=== PATIENT | female | born 1975 | race Caucasian/White ===

== ENCOUNTER 2020-02-05 07:57 | Outpatient (CLI) | payer BC, SELFPAY ==
--- NOTE | ~2020-02-05 | MM_ITS ---
EXAMINATION: MM screening radha BI w wilfredo HISTORY: Screening mammogram TECHNIQUE: Craniocaudal and mediolateral oblique 3-D tomosynthesis images were obtained and synthetic 2-D images were generated. CAD analysis was submitted and interpreted. COMPARISON: Comparison to multiple prior studies sequentially, with oldest reviewed study dated 10/28. BREAST PARENCHYMAL COMPOSITION: There are scattered areas of fibroglandular density. FINDINGS: There is a new 5 mm mass in the subareolar location of the right breast, lower outer quadra nt. The left breast is stable without evidence for malignancy. IMPRESSION: 1. New 5 mm right breast mass, lower outer quadrant anteriorly. 2. Additional mammographic views and possible breast ultrasound are recommended. BI-RADS Category 0: Incomplete: Needs additional imaging evaluation. Reviewed, dictated and finalized at location A. IMPRESSION: 1. New 5 mm right breast mass, lower outer quadrant anteriorly. 2. Additional mammographic views and possible breast ultrasound are recommended . BI-RADS Category 0: Incomplete: Needs additional imaging evaluation.
== END 2020-02-05 07:58 | disposition home or self-care (01) ==
LOC: ANHIMG 08:01
PROVIDERS: PCP Internal Medicine; Visit Provider Internal Medicine
DX: Z12.31 Encounter for screening mammogram for malignant neoplasm of breast (principal); R92.8 Other abnormal and inconclusive findings on diagnostic imaging of breast
CPT/HCPCS: 77063; 77067

== ENCOUNTER 2020-04-03 12:27 | Outpatient (CLI) | payer BC, SELFPAY ==
--- NOTE | ~2020-04-03 | MMUS_ITS ---
EXAMINATION: MM diagnostic mammo unilat RT, US breast RT limited HISTORY: New 5 mm mass in subareolar location of right breast reported on 02/05/2020 screening mammogr am TECHNIQUE: Additional 3-D tomosynthesis images of the right breast were performed and synthetic 2-D i mages were generated. CAD analysis was submitted and interpreted. Limited subareolar right breast ult rasound examination was performed. COMPARISON: 02/05/2020 bilateral digital screening mammogram BREAST PARENCHYMAL COMPOSITION: There are scattered areas of fibroglandular density. FINDINGS: Diagnostic right mammogram: There are 2 circumscribed oval densities measuring approximately 4 and 4. 5 mm in the inferolateral subareolar area approximately 2.5 cm deep to the nipple. Targeted subareolar ultrasound: 4.2 x 3.3 x 3.4 mm subareolar sonolucency is noted, compatible with s imple cysts Parallel circumscribed hypoechoic approximately 4 mm lesion is noted in the inferior subareolar area, without internal vascularity or suspicious shadowing. No suspicious mass or shadowing is evident. IMPRESSION: 1. No mammographic evidence of malignancy 2. Routine mammographic screening is recommended. BI-RADS Category 2: Benign finding(s). Reviewed, dictated and finalized at location A. IMPRESSION: 1. No mammographic evidence of malignancy 2. Routine mammographic screening is recommended. BI-RADS Category 2: Benign finding(s).
== END 2020-04-03 12:28 | disposition home or self-care (01) ==
LOC: ANHIMG 12:28
PROVIDERS: PCP Internal Medicine; Visit Provider Internal Medicine
DX: R92.8 Other abnormal and inconclusive findings on diagnostic imaging of breast (principal)
CPT/HCPCS: 76642; 77065

== ENCOUNTER 2020-10-21 13:07 | Emergency (ER) | payer BC, SELFPAY ==
--- NOTE | ~2020-10-21 | XR_ITS ---
EXAMINATION: XR foot LT min 3V EXAM DATE: 10/21/2020 14:01 INDICATION: Initial encounter following injury, with pain of the left foot. TECHNIQUE: Left foot dorsoplantar, lateral and oblique projections obtained and reviewed. There is n o prior study for comparison. FINDINGS: Left metatarsal bones unremarkable. There is small calcaneal posterior and inferior spur s. There are no acute fractures or dislocations identified. There is no subcutaneous gas. The soft tissue is unremarkable. There are no radiopaque foreign bodies. 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 IMPRESSION: No acute osseous findings. Reviewed, dictated and finalized at location A. IMPRESSION: No acute osseous findings.
--- NOTE | ~2020-10-21 | US_ITS ---
EXAMINATION: US venous doppler [facility] EXAM DATE: 10/21/2020 14:40 INDICATION: Left foot pain. TECHNIQUE: Multiple grayscale, color flow and Doppler images of the left lower extremity deep venous system were obtained and reviewed. There is no prior study for comparison. FINDINGS: The left common femoral, femoral and profunda veins demonstrate normal color flow, respirat ory variation, augmentation and compressibility. Compressibility, color flow confirmed within the le ft popliteal, posterior tibial, peroneal, and greater saphenous veins. IMPRESSION: 1. No left lower extremity deep venous thrombosis. Reviewed, dictated and finalized at location A.
[2020-10-21 13:13] VITALS: BP 147/95; PULSE 120; RESP 18; TEMP 36.6; O2SAT 97
--- NOTE | 2020-10-21 14:14 | ED.GENADULT ---
HPI - General Adult General Chief complaint: Extremity Injury, Lower <Juan Jose Kunz PA-C - Last Filed: 10/21/20 14:51> Stated complaint: left foot pain <Juan Jose Kunz PA-C - Last Filed: 10/21/20 14:51> Time Seen by Provider: 10/21/20 13:22 <Juan Jose Kunz PA-C - Last Filed: 10/21/20 14:51> Source: patient <Juan Jose Kunz PA-C - Last Filed: 10/21/20 14:51> Mode of arrival: ambulatory <Juan Jose Kunz PA-C - Last Filed: 10/21/20 14:51> Limitations: no limitations <Juan Jose Kunz PA-C - Last Filed: 10/21/20 14:51> History of Present Illness HPI narrative: Patient is a 45-year-old female who presents with left foot pain patient notes she was sitting in her leg and falling asleep when she went to stand up and felt a pop in the foot at the level of the fifth metatarsal base. Patient denies other injuries or complaints presents in no distress noticed bruising and swelling of the foot presents with crutches <Juan Jose Kunz PA-C - Last Filed: 10/21/20 14:51> Related Data Home medications: Home Medications Medication Instructions Recorded Confirmed lisinopril 10 mg PO 10/21/20 <Juan Jose Kunz PA-C - Last Filed: 10/21/20 14:51> Allergies/adverse reactions: Allergies Allergy/AdvReac Type Severity Reaction Status Date / Time No Known Allergies Allergy Unverified 10/21/20 13:43 <Juan Jose Kunz PA-C - Last Filed: 10/21/20 14:51> Review of Systems Review of Systems: All systems reviewed & are unremarkable except as noted in HPI and below <Juan Jose Kunz PA-C - Last Filed: 10/21/20 14:51> [facility] Past Medical History Medical History: Medical History (Updated 10/21/20 @ 14:50 by Juan Jose Kunz PA-C) DVT (deep venous thrombosis) Pulmonary embolus <Juan Jose Kunz PA-C - Last Filed: 10/21/20 14:51> Social History Social History: Social History (Updated 10/21/20 @ 14:15 by Juan Jose Kunz PA-C) Smoking status: Current every day smoker Additional smoking assessment comments: Patient advised to discontinue smoking given her history of pulmonary embol Gender identity (if verbalized by the patient): Female <Juan Jose Kunz PA-C - Last Filed: 10/21/20 14:51> Exam Narrative: Exam Narrative: GENERAL: Well-appearing, well-nourished, and in no acute distress. HEAD: Normocephalic, atraumatic. EYES: PERRLA and EOMI. ENT: Nares clear, no rhinorrhea or epistaxis. Mucous membranes moist. CHEST: Clear to auscultation. No respiratory distress. No wheezes rales or rhonchi HEART: Regular rate and rhythm. No murmur heard. EXTREMITIES: Normal range of motion. No edema. Bruising swelling and tenderness along the base of the fifth metatarsal remainder of foot and ankle nontender SKIN: Warm, dry, no rash. NEURO: No focal deficits. Alert and oriented x3. Neurovascularly intact PSYCH: Normal mood and affect. <Juan Jose Kunz PA-C - Last Filed: 10/21/20 14:51> Course Course Emergency Course: Patient evaluated the emergency department no fracture no DVT will be discharged home with outpatient follow-up likely strain or ligamentous injury at this time ABCs and vital signs intact and stable <Juan Jose Kunz PA-C - Last Filed: 10/21/20 14:51> Vital Signs Vital signs: Vital Signs Temperature 36.6 C 10/21/20 13:13 Pulse Rate 120 H 10/21/20 13:13 Respiratory Rate 18 10/21/20 13:13 Blood Pressure 147/95 H 10/21/20 13:13 Pulse Oximetry 97 10/21/20 13:13 Temperature 36.6 C 10/21/20 13:13 Pulse Rate 92 10/21/20 15:09 Respiratory Rate 18 10/21/20 15:09 Blood Pressure 132/96 H 10/21/20 15:09 Pulse Oximetry 99 10/21/20 15:09 <Juan Jose Kunz PA-C - Last Filed: 10/21/20 14:51> Vital Signs Temperature 36.6 C 10/21/20 13:13 Pulse Rate 120 H 10/21/20 13:13 Respiratory Rate 18 10/21/20 13:13 Blood Pressure 147/95 H 10/21/20 13:13 Pulse Oximetry 97 10/21/20 1
[2020-10-21 15:09] VITALS: BP 132/96; PULSE 92; RESP 18; O2SAT 99
== END 2020-10-21 15:10 | disposition home or self-care (01) ==
PROVIDERS: Emergency Provider Emergency Medicine; PCP Internal Medicine
DX: S99.922A Unspecified injury of left foot, initial encounter (principal); X58.XXXA Exposure to other specified factors, initial encounter
CPT/HCPCS: 73630; 93971; 99284

== ENCOUNTER 2020-12-06 08:41 | Outpatient (CLI) | payer BC, SELFPAY ==
--- NOTE | ~2020-12-06 | MR_ITS ---
EXAMINATION: MR ankle LT wo con DATE: 12/06/2020 09:33 INDICATION: Left foot and ankle pain post fall 5 weeks prior TECHNIQUE: Magnetic resonance imaging (MRI) of the left ankle was performed without intravenous contr ast. Sequences included sagittal, coronal, and axial proton-density weighted fast spin echo without a nd with fat saturation. COMPARISON: None. FINDINGS: Medial ankle ligaments: Deep and superficial deltoid ligaments as well as the spring ligament are normal. Lateral ankle ligaments: The anterior and posterior inferior tibiofibular ligaments are normal. The anterior talofibular, calc aneofibular and posterior talofibular ligaments are normal. Tendons: Achilles tendon is normal. Longitudinal split tear of the peroneus brevis tendon which forms a C-shap ed configuration draped anteriorly around the normal peroneus longus tendon at the level of the inter tubercular groove. The tibialis anterior and extensor hallucis longus and extensor digitorum longus t endons are normal. The tibialis posterior, flexor digitorum longus and flexor hallucis longus tendons are normal. Plantar fascia: Moderate-sized plantar calcaneal spur at the calcaneal origin of the normal plantar aponeurosis. Bones/other: Marrow edema at the inferior aspect of the head of the talus without evident fracture line which give n the history of pain post trauma would be most consistent with a bone contusion. Bone marrow signal is otherwise normal throughout. Minimal to mild osteoarthritis at the second-fifth tarsal metatarsal joints. Fluid: Physiologic amount of fluid in the joint spaces. No bursitis, tenosynovitis or other abnormal fluid c ollections. IMPRESSION: 1. Likely bone contusion along the inferior aspect of the head of the talus. 2. Longitudinal split tear of the peroneus brevis tendon 3. Minimal to mild osteoarthritis at the second-fifth tarsal metatarsal joints. Reviewed, dictated and finalized at location A.
== END 2020-12-06 08:42 ==
LOC: MICIMG 08:42
PROVIDERS: Visit Provider Orthopaedic Surgery
DX: S96.812A Strain of other specified muscles and tendons at ankle and foot level, left foot, initial encounter (principal); M19.072 Primary osteoarthritis, left ankle and foot
CPT/HCPCS: 73721

== ENCOUNTER 2021-01-26 08:57 | Emergency (ER) | payer BC, SELFPAY ==
--- NOTE | ~2021-01-26 | CT_ITS ---
EXAMINATION: CTA chest PE protocol DATE: 01/26/2021 10:29 INDICATION: Shortness of breath. Recent (01/18/2021) reported diagnosis of deep venous thrombosis of th e left leg. TECHNIQUE: Computed tomography angiography (CTA) of the chest was performed with 100 mL Omnipaque-350 intravenous contrast timed to evaluate the pulmonary arteries. Coronal maximum intensity projection 3D-reconstructions were created by the technologist. Automated exposure control and iterative reconst ruction technique were employed. Exam dose: 794.80 mGy-cm total exam DLP. COMPARISON: None. FINDINGS: There is diagnostic contrast enhancement of the pulmonary arteries and no evidence of pulmo nary embolism. No thoracic aortic aneurysm or dissection. No hilar or mediastinal mass lesion or lymphadenopathy. Heart size is borderline. No pericardial or pleural effusion. Elevated right diaphragm. Mild atelectasis, right lower lobe. No pulmonary consolidation. Normal morphology of the adrenal glands. Included skeletal structures are unremarkable, without significant osteolytic or osteoblastic lesions . IMPRESSION: Elevated right diaphragm and mild atelectasis at right lung base No evidence of pulmonary embolism Reviewed, dictated and finalized at [facility]. Reviewed, dictated and finalized at location [facility].
--- NOTE | 2021-01-26 09:08 | ECG_ITS ---
Measurements Intervals [place] Rate: 66 P: 40 TX: 146 QRS: 33 QRSD: 93 T: 63 QT: 394 QTc: 413 Interpretive Statements SINUS RHYTHM BORDERLINE ST-T WAVE ABNORMALITY- HIGH LATERAL LEADS BASELINE ARTIFACT- I, II, III, AVR, AVL, AVF, V1-V6 BORDERLINE ECG Electronically Signed On 01-26-2021 9:46:48 CDT by Manny Royal D.O.
[2021-01-26 09:09] VITALS: BP 152/95; PULSE 80; RESP 13; TEMP 36.8; O2SAT 98
[2021-01-26 09:46] LABS: Basophils Absolute Auto 0.1 K/mm3 (0.0-0.1); Basophils Percent Auto 0.8 % (0.2-1.2); Eosinophils Absolute Auto 0.3 K/mm3 (0-0.3); Eosinophils Percent Auto 2.6 % (0-4.4); Hematocrit 47.7 % (37.0-47.0); Hemoglobin 15.9 g/dL (12.0-15.0); Immature Granulocyte Absolute 0.08 K/mm3 (0.00-0.031); Immature Granulocyte Percent A 0.7 % (0-0.5); Lymphocytes Absolute Auto 3.33 K/mm3 (0.9-3.2); Lymphocytes Percent Auto 27.4 % (18.3-44.2); Mean Corpuscular HGB Conc 33.3 g/dl (32-36); Mean Corpuscular Hemoglobin 32.3 pg (26-34); Mean Corpuscular Volume 96.8 fl (80-100); Mean Platelet Volume 9.4 fl (7.4-10.4); Monocytes Absolute Auto 0.7 K/mm3 (0.1-0.6); Monocytes Percent Auto 6.1 % (2.6-8.5); Neutrophils Absolute Auto 7.6 K/mm3 (1.3-6.7); Neutrophils Percent Auto 62.4 % (45.5-73.1); Platelet Count Result 277 k/mm3 (150-375); Red Blood Count 4.93 M/mm3 (4.2-5.4); Red Cell Distribution Width 12.8 % (11.5-14.5); White Blood Count 12.2 K/mm3 (4.5-10.0)
[2021-01-26 09:57] LABS: Anion Gap 10 mmol/L (8-16); Blood Urea Nitrogen 16 mg/dL (7-17); Calcium 9.4 mg/dL (8.4-10.2); Carbon Dioxide 22 mmol/L (22-30); Chloride 107 mmol/L (98-107); Estimated CRCL calculation 102 ml/min; Estimated Glomerular Filt Rate > 60; Glucose 86 mg/dL (65-105); Potassium 4.3 mmol/L (3.4-5.0); Sodium 139 mmol/L (137-145)
[2021-01-26 10:04] LABS: INR 1.1; Prothrombin Time 13.9 Seconds (11.1-14.7)
[2021-01-26 10:06] LABS: Partial Thromboplastin Time 40.5 SECONDS (22.3-36.8)
--- NOTE | 2021-01-26 10:49 | ED.SOB ---
HPI - SOB/Dyspnea General Chief Complaint: Shortness of Breath/Dyspnea Stated Complaint: HX DVT FEELS LIKE MOVED TO LUNGS Time Seen by Provider: 01/26/21 09:08 History of Present Illness HPI Narrative: Patient is a 45-year-old female with history of DVT recently diagnosed who is on Eliquis that presents ER with concerns for pulmonary embolism. Patient states she worked this morning and feels more short of breath and has discomfort beneath her right scapula. No hemoptysis or fevers or chills or sweats. No productive cough. Patient has had no syncope. Patient reports she has pain in her calf and left ankle related to previous injury is also location of her blood clot. Related Data Home Medications Medication Instructions Recorded Confirmed lisinopril 10 mg PO 10/21/20 11/26/20 acetaminophen 325 mg capsule 325 mg PO Q6H PRN 11/26/20 11/26/20 apixaban [Eliquis] mg 01/26/21 Allergies Allergy/AdvReac Type Severity Reaction Status Date / Time Sulfa (Sulfonamide Allergy Rash Verified 01/26/21 09:19 Antibiotics) Review of Systems Review of Systems: All systems reviewed & are unremarkable except as noted in HPI and below Constitutional: Constitutional: Denies chills, Denies fever(s) and Denies weakness ENT: Denies nasal congestion and Denies sore throat Cardiovascular: Cardiovascular: Denies chest pain, Denies rapid heart rate and Denies radiating jaw, neck or arm pain Respiratory: Respiratory: Denies cough, Reports dyspnea and Denies wheezing Gastrointestinal: Gastrointestinal: Denies abdominal pain, Denies nausea and Denies vomiting Musculoskeletal: Musculoskeletal: Reports back pain and Denies muscle cramps PMFSH Past Medical History Medical History DVT (deep venous thrombosis) Pulmonary embolus Surgical History Surgical History History of arthroscopy of right knee developed RSD postop - went through pain management Family History Family History Father Diabetes mellitus Sibling Asthma Social History Social History Smoking status: Current every day smoker Additional smoking assessment comments: Patient advised to discontinue smoking given her history of pulmonary embol Gender identity (if verbalized by the patient): Female Exam Narrative: Exam Narrative: GENERAL: Well-appearing, well-nourished, and in no acute distress. HEAD: Normocephalic, atraumatic. CHEST: Clear to auscultation. No respiratory distress. HEART: Regular rate and rhythm. Normal peripheral pulses. ABDOMEN: Soft, nontender, nondistended. Back: No reproducible midline or paraspinal muscular tenderness in the thoracic or lumbar regions. EXTREMITIES: Normal range of motion. No edema. SKIN: Warm, dry, no rash. NEURO: Alert and oriented x3. PSYCH: Normal mood and affect. Course Course Emergency Course: Patient informed of results. Discharge home. Vital Signs Vital signs: Vital Signs Temperature 98.2 F 01/26/21 09:09 Pulse Rate 80 01/26/21 09:09 Respiratory Rate 13 01/26/21 09:09 Blood Pressure 152/95 H 01/26/21 09:09 Pulse Oximetry 98 01/26/21 09:09 Temperature 98.2 F 01/26/21 09:09 Pulse Rate 80 01/26/21 09:09 Respiratory Rate 13 01/26/21 09:09 Blood Pressure 152/95 H 01/26/21 09:09 Pulse Oximetry 98 01/26/21 09:09 MDM - SOB/Dyspnea Lab Data Result diagrams: 01/26/21 09:36 01/26/21 09:36 Labs: Lab Results 01/26/21 01/26/21 01/26/21 Range/Units 09:36 09:36 09:36 WBC 12.2 H (4.5-10.0) K/mm3 RBC 4.93 (4.2-5.4) M/mm3 Hgb 15.9 H (12.0-15.0) g/dL Hct 47.7 H (37.0-47.0) % MCV 96.8 (80-100) fl MCH 32.3 (26-34) pg MCHC 33.3 (32-36) g/dl RDW 12.8 (11.5-14.5) % Plt Count 277 (150-375) k/mm3
== END 2021-01-26 11:17 | disposition home or self-care (01) ==
PROVIDERS: Emergency Provider Emergency Medicine; PCP Internal Medicine
DX: I82.402 Acute embolism and thrombosis of unspecified deep veins of left lower extremity (principal); F17.200 Nicotine dependence, unspecified, uncomplicated; Z79.01 Long term (current) use of anticoagulants; Z86.718 Personal history of other venous thrombosis and embolism; Z86.711 Personal history of pulmonary embolism
CPT/HCPCS: 36415; 71275; 80048; 85025; 85610; 85730; 93005; 99284; Q9967

== ENCOUNTER 2021-01-28 11:16 | Emergency (ER) | payer BC, SELFPAY ==
[2021-01-28] VITALS (26 sets, daily range): BP systolic 130–169; BP diastolic 80–107; PULSE 63–88; RESP 13–28; TEMP 36.9; O2SAT 94–100
--- NOTE | ~2021-01-28 | CT_ITS ---
EXAMINATION: CTA chest PE protocol DATE: 01/28/2021 12:26 INDICATION: (Midsternal chest pain, dyspnea. Shortness of breath. TECHNIQUE: Computed tomography angiography (CTA) of the chest was performed with 100 mL Omnipaque-350 intravenous contrast timed to evaluate the pulmonary arteries. Coronal maximum intensity projection 3D-reconstructions were created by the technologist. Automated exposure control and iterative reconst ruction technique were employed. Exam dose: 403.96 mGy-cm total exam DLP. COMPARISON: 01/26/2021 CT pulmonary scan FINDINGS: There is moderate opacification the pulmonary arteries, without evidence of pulmonary embol ism. No thoracic aortic aneurysm or dissection. Normal heart size. No pericardial or pleural the effusion. Elevated right diaphragm. Mild atelectasis primarily in the right lower lobe. The lungs are otherwise clear. Small sliding hiatal hernia. No suspicious osteolytic or osteoblastic lesions. IMPRESSION: No evidence of pulmonary embolism Reviewed, dictated and finalized at [facility]. Reviewed, dictated and finalized at location B.
--- NOTE | 2021-01-28 11:27 | ECG_ITS ---
Measurements Intervals [place] Rate: 64 P: 34 TN: 171 QRS: 33 QRSD: 92 T: 67 QT: 394 QTc: 407 Interpretive Statements SINUS RHYTHM MINIMAL Q WAVES- INFERIOR LEADS BORDERLINE ST-T WAVE ABNORMALITY- HIGH LATERAL LEADS BASELINE ARTIFACT- I, III BORDERLINE ECG Electronically Signed On 01-28-2021 11:30:07 CDT by Manny Royal D.O.
--- NOTE | 2021-01-28 11:33 | ED.CHESTPAIN ---
HPI - Chest Pain General Chief Complaint: Chest Pain Stated Complaint: CP Source: RN notes reviewed History of Present Illness HPI narrative: Patient presents to emergency department from home for left-sided chest pain. Patient states the pain began this morning at 5:30 AM is located in the left lower chest and midsternal chest described as a pressure in nature it is worse with movement patient states that she has mild shortness of breath with the pain she denies any fevers or chills abdominal pain nausea vomiting or any other symptoms. Patient states she has a history of a DVT and is currently on Eliquis Related Data Home Medications Medication Instructions Recorded Confirmed lisinopril 10 mg PO 10/21/20 11/26/20 acetaminophen 325 mg capsule 325 mg PO Q6H PRN 11/26/20 11/26/20 apixaban [Eliquis] mg 01/26/21 Allergies Allergy/AdvReac Type Severity Reaction Status Date / Time Sulfa (Sulfonamide Allergy Rash Verified 01/28/21 11:30 Antibiotics) Review of Systems Review of Systems: Narrative: Gen.: Denies fevers or chills ENT: Denies congestion Respiratory: Denies shortness of breath or cough CV: See HPI GI: Denies abdominal pain nausea, emesis or diarrhea Musculoskeletal: Denies back pain or muscle pain Neuro: Denies numbness, tingling, weakness or focal weakness Skin: Denies rash Except as documented, all other systems reviewed and negative [facility] Past Medical History Medical History DVT (deep venous thrombosis) Pulmonary embolus Surgical History Surgical History History of arthroscopy of right knee developed RSD postop - went through pain management Family History Family History Father Diabetes mellitus Sibling Asthma Social History Social History Smoking status: Current every day smoker Additional smoking assessment comments: Patient advised to discontinue smoking given her history of pulmonary embol Gender identity (if verbalized by the patient): Female Exam Narrative: Exam Narrative: APPEARANCE: No acute distress, nontoxic, resting in bed EYES: EOMI HEENT: Normocephalic, atraumatic, OMM RESPIRATORY: No respiratory distress Clear to auscultation bilaterally with no rhonchi wheezing or rales. CARDIOVASCULAR: Regular rate and rhythm without murmurs rubs or gallops. Chest: Tender palpation over the lower left sternum with point tenderness present pain increased with fly motion ABDOMINAL: Soft, nontender, nondistended, no rebound or guarding MUSCULOSKELETAl: Moves all extremities. No clubbing, cyanosis or edema. NEURO: Awake and alert. Following commands, speech normal, no focal deficits SKIN:: Warm, dry. No rashes lesions or abrasions PSYCHIATRIC: Normal affect/mood, Course Course Emergency Course: Discussed with patient results of workup and diagnosis. Discussed need for follow-up with primary care, proper use of medication, and reasons to return to the emergency department. Patient understands and agrees to current treatment plan Vital Signs Vital signs: Vital Signs Temperature 98.4 F 01/28/21 11:13 Pulse Rate 74 01/28/21 11:13 Respiratory Rate 18 01/28/21 11:13 Blood Pressure 161/107 H 01/28/21 11:13 Pulse Oximetry 95 01/28/21 11:13 Temperature 98.4 F 01/28/21 11:13 Pulse Rate 83 01/28/21 11:29 Respiratory Rate 18 01/28/21 11:13 Blood Pressure 161/107 H 01/28/21 11:13 Pulse Oximetry 99 01/28/21 12:03 MDM - Chest Pain MDM Narrative Medical decision making narrative: Patient's EKGs and labs are without significant high risk changes. Cardiac risk factors reviewed. Patient is felt likely low risk for ACS and reasonable for further risk stratification testing as an outpatient. CTA shows no signs of pulmonary embolism aneurysm or pne
[2021-01-28 11:40] LABS: Basophils Absolute Auto 0.1 K/mm3 (0.0-0.1); Basophils Percent Auto 0.6 % (0.2-1.2); Eosinophils Absolute Auto 0.5 K/mm3 (0-0.3); Eosinophils Percent Auto 3.7 % (0-4.4); Hematocrit 48.3 % (37.0-47.0); Hemoglobin 16.1 g/dL (12.0-15.0); Immature Granulocyte Absolute 0.08 K/mm3 (0.00-0.031); Immature Granulocyte Percent A 0.6 % (0-0.5); Lymphocytes Absolute Auto 3.62 K/mm3 (0.9-3.2); Lymphocytes Percent Auto 28.3 % (18.3-44.2); Mean Corpuscular HGB Conc 33.3 g/dl (32-36); Mean Corpuscular Hemoglobin 32.4 pg (26-34); Mean Corpuscular Volume 97.2 fl (80-100); Mean Platelet Volume 9.4 fl (7.4-10.4); Monocytes Absolute Auto 0.8 K/mm3 (0.1-0.6); Monocytes Percent Auto 6.2 % (2.6-8.5); Neutrophils Absolute Auto 7.8 K/mm3 (1.3-6.7); Neutrophils Percent Auto 60.6 % (45.5-73.1); Platelet Count Result 294 k/mm3 (150-375); Red Blood Count 4.97 M/mm3 (4.2-5.4); Red Cell Distribution Width 12.8 % (11.5-14.5); White Blood Count 12.8 K/mm3 (4.5-10.0)
[2021-01-28 11:49] LABS: Anion Gap 12 mmol/L (8-16); Blood Urea Nitrogen 18 mg/dL (7-17); Calcium 9.9 mg/dL (8.4-10.2); Carbon Dioxide 22 mmol/L (22-30); Chloride 102 mmol/L (98-107); Estimated CRCL calculation 129 ml/min; Estimated Glomerular Filt Rate > 60; Glucose 93 mg/dL (65-105); Potassium 4.6 mmol/L (3.4-5.0); Sodium 136 mmol/L (137-145)
[2021-01-28 11:53] LABS: Prothrombin Time 13.4 Seconds (11.1-14.7)
[2021-01-28 11:55] LABS: Partial Thromboplastin Time 31.8 SECONDS (22.3-36.8)
[2021-01-28 12:02] LABS: Troponin I < 0.012 ng/mL (0.000-0.034)
[2021-01-28 14:36] LABS: Troponin I < 0.012 ng/mL (0.000-0.034)
== END 2021-01-28 16:13 | disposition home or self-care (01) ==
PROVIDERS: Emergency Provider Emergency Medicine; PCP Internal Medicine
DX: R07.89 Other chest pain (principal); Z86.718 Personal history of other venous thrombosis and embolism; Z86.711 Personal history of pulmonary embolism; F17.200 Nicotine dependence, unspecified, uncomplicated; R94.31 Abnormal electrocardiogram [ECG] [EKG]
CPT/HCPCS: 36415; 71275; 80048; 84484; 85025; 85610; 85730; 93005; 99284; Q9967

== ENCOUNTER 2021-02-02 10:15 | Outpatient (RCR) | payer BC, SELFPAY ==
--- NOTE | 2020-11-12 09:07 | PTOPEVAL ---
PHYSICAL THERAPY EVALUATION AND PLAN OF CARE 11-12-20 Thank you for referring Mery Patel to [facility], for the diagnosis of L ankle injury.? She is scheduled to be seen for therapy? 2 x/week for 4 weeks. Please review, sign, date and return this plan of care CATHY. I agree with and certify that the following plan of care is medically necessary. Referring Physician Date Attending Provider: Scooby Black MD *PT Outpatient Evaluation Document 11/12/20 08:00 CYNDIE (Rec: 11/12/20 09:07 CYNDIE [id number]) Cardiovascular History Hx Hypertension Yes: meds Hx Other Cardiac Disorders Yes: cardiac ablation Respiratory History Hx Pulmonary Embolism Yes: > 10 yr ago DVT R LE & lung; no longer on blood thinner Musculoskeletal History Hx Orthopedic Surgery Yes: R and L knee arthroscopy; R knee manipulation Reproductive History Hx Hysterectomy Yes Evaluation Information Problem Diagnosis L ankle injury Onset October 22, 2020 Subjective Information was sitting, L leg fell asleep Query Text:As Reported By Patient/ and numb, went to stand and Family twisted ankle, it turned inward and heard a pop; wearing walking shoe and using crutches PRN- 1 or 2 crutches ; Diagnostic Tests X-Rays For This Problem Yes: negative Prior Level of Function Activity Level (Last 3 Months) 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;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,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 Activity of Daily Living Ability Independent Indoor/Home Mobility Independent Community Mobility Needs Some Help Functional Cognition (Planning, Shopping Independent , Taking Medications) Cooking Yes Cleaning Yes Laundry Yes Shopping Yes Driving Yes Home Setting Home Type House,Multiple Levels Living Situation With Spouse Mobility Assistive Devices (Used Last 3 None,Crutches Months) Orthotic/Prosthetic Devices Left Lower Extremity Orthosis Comments Additional Prior Level of Function currently working from home to Comments decrease walking; job- office, walking, phone tasks; can avoid stairs, laundry in basement- has been doing laundry; use crutches
--- NOTE | 2020-12-09 08:42 | PTOPEVAL ---
Addendum entered by Kaylynn Puentes, PT 12/17/20 15:45: New orders for PT from Fela Brito NP. Pt reports she will not be seeing Dr Black anymore. Continue with PT under these orders; Updated plan of care, to continue PT 2x/week for 5 weeks. Fela Brito NP Date Original Note: PHYSICAL THERAPY RE-EVALUATION REPORT 12-09-20 Refer to the clinical summary below, for comparison of today's reevaluation to the initial evaluation. Mery continues to have pain in ankle, with numbness and tingling over lateral lower leg. And continues to use the crutches due to not being able to tolerate WB on her L LE. Amanda Moran has a follow up appointment; if PT is to continue, please issue her a new script. Thank you for referring Mery Patel to [facility].? Please review, sign, date and return this plan of care CATHY. I agree with and certify that the following plan of care is medically necessary. 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; going to see tomorrow and will get the results from her MRI; Pain Assessment Timing of Pain Assessment Timing of Pain Assessment Assessment Pain Scale Pain Scale Used Numeric (1 - 10) Self Report Pain Assessment Left Ankle(s) Reported Pain Level 6 Pain Description Numbness,Sharp,Tingling Radicular Pain Location lateral ankle and lateral lower leg Pain Frequency Chronic,Continuous Lowest Pain Intensity 4 Greatest Pain Intensity 8 Pain Aggravating Factors Walking,Weight Bearing/ Standing Pain Behaviors Grimacing,Guarding Pain Score Pain Score 6: Self Report Additional Pain Score Comments reported sleeping with L LE elevated and awaken 2-3 x/ night; standing/walking tolerance 30 min; using crutches all time; wearing cast shoe; pain is different- going up side of leg now, not j
--- NOTE | 2020-12-17 15:44 | PCPTNOTE ---
new orders received: Fela Brito NP: pt reports she is no longer seeing Dr Black and will be following with Daryl ENCARNACION; updated goals and plan of care sent to Fela Brito NP;
--- NOTE | 2020-12-26 09:52 | PCPTNOTE ---
Patient called & cancelled scheduled appointment this date due to , putting her L foot/ankle in cast.
--- NOTE | 2020-12-26 13:45 | PCPTNOTE ---
pt called and canceled her appointments for the next 2 weeks; she went to and they put a cast over her ankle and lower leg. She returns to January 08 for cast to be removed. She has appt after that to continue PT. She reports pain increased in her ankle from the cast and position of her foot. And is using crutches for walking. Discussed with her continue to elevate LE, wiggle toes and monitor pain. If too uncomfortable, to contact
--- NOTE | 2021-01-15 11:41 | PCPTNOTE ---
pt with a new script from ortho dr, to continue PT treatment, WBAT on L LE and wean off boot. Discussed pt with SENIOR GAME ADVISOR, to continue treatment plan as previous,with reevaluation scheduled for next week.
--- NOTE | 2021-01-20 08:43 | PTOPEVAL ---
PHYSICAL THERAPY REEVALUATION AND UPDATED PLAN OF CARE 01-20-21 Refer to the clinical summary below, for her status today, compared to the last reeval. Continue PT treatments 2x/wk for 3 weeks. Thank you for referring Mery Patel to [facility].? Please review, sign, date and return this updated plan of care [facility]. I agree with and certify that the following plan of care is medically necessary. Referring Physician Date Attending Provider: Fela Clements NP Document 01/20/21 08:00 CYNDIE (Rec: 01/20/21 08:43 CYNDIE [id number]) Assessment Status Re-evaluation Subjective Information Mery reports: had more pain Query Text:As Reported By Patient/ over the weekend- in calf and Family leg, to behind knee; to call dr today about leg- ? blood clot history; leg is warm today and is usually cold; to see neurologist Patricia, to check for back cause of leg pain; Pain Assessment Timing of Pain Assessment Timing of Pain Assessment Assessment Pain Scale Pain Scale Used Numeric (1 - 10) Self Report Pain Assessment Left Ankle(s) Reported Pain Level 7 Radicular Pain Location stiff, tight; lateral malleoli ; numb and tingle in leg- ? from back Pain Frequency Chronic,Continuous Other Pain Description lateral ankle pain 5/10; calf, to below knee& posterior heel is 6-9/10; Lowest Pain Intensity 6 Greatest Pain Intensity 9 Pain Aggravating Factors Exercise/Activity Other Pain Aggravating Factors report tolerance 10-15 min, sleep awaken 4-5 x/night due to calf pain Pain Behaviors Anxious,Grimacing,Guarding Additional Pain Comments if sit too long- L leg goes numb; Pain Score Pain Score 7: Self Report Additional Pain Score Comments was doing better up until about 5 days ago, gradual increase in pain of calf, really worse over past 2 days; wear walking boot when walking in community; in home , try to remove some and walk short distances in home; Interventions Used Interventions Used By Clinicians Exercise Pain Relief Interventions Used By Elevation,Inactivity/Rest, Patient Medication,Sitting Other Alleviating Interventions ibuprofen and tylenol; sit/
--- NOTE | 2021-01-23 16:26 | PCPTNOTE ---
pt called and canceled therapy appt for next week due to having blood clots in leg and said to HOLD PT.
--- NOTE | 2021-02-03 15:11 | PCPTNOTE ---
This treatment is being continued on visit number [id number]. Please see documentation on both accounts to view progress. Completed interventions, outcomes, and problems have been marked as Inactive to facilitate the copying of the Care plan routine for recurring accounts.
== END 2021-02-03 15:02 | disposition home or self-care (01) ==
LOC: ANHPT 10:15
PROVIDERS: PCP Internal Medicine
DX: S99.912D Unspecified injury of left ankle, subsequent encounter (principal)
CPT/HCPCS: 97014; 97022; 97035; 97110; 97112; 97140; 97161; G0283

== ENCOUNTER 2021-02-17 14:00 | Outpatient (RCR) | payer BC, SELFPAY ==
--- NOTE | 2021-02-03 15:14 | PCPTNOTE ---
This treatment is being continued from visit number [id number] Please see documentation on both accounts to view progress. Completed interventions, outcomes, and problems have been marked as Inactive to facilitate the copying of the Care plan routine for recurring accounts.
--- NOTE | 2021-02-11 08:55 | PTOPEVAL ---
PHYSICAL THERAPY REEVALUATION AND UPDATED PLAN OF CARE 02-11-21 Refer to the clinical summary below for her status today, compared to the last reevaluation. The goals were partially achieved. Continue PT treatment 2x/wk for 5 weeks. Thank you for referring Mery Patel to [facility].? Please review, sign, date and return this updated plan of care [facility]. I agree with and certify that the following plan of care is medically necessary. Referring Physician Date Attending Provider: Fela Clements NP Document 02/11/21 08:00 CYNDIE (Rec: 02/11/21 08:55 CYNDIE [id number]) Assessment Status Re-evaluation Subjective Information Mery reports: walking Query Text:As Reported By Patient/ without anything short Family distances, using one crutch for longer walking; not using any type of ankle support or brace; doing exercises; is getting better, but still giving me problems; is taking way longer than I thought it would take; still cannot be up on my feet and have to sit/ rest; cannot take usual walks for exercises, cannot play with grandkids like I normally did; still working from home due to ankle, instead of going to the office; to see dr tomorrow for follow up appointment; wants to continue therapy. Pain Assessment Timing of Pain Assessment Timing of Pain Assessment Assessment Pain Scale Pain Scale Used Numeric (1 - 10) Self Report Pain Assessment Left Ankle(s) Reported Pain Level 3 Pain Description Pressure,Tightness Pain Frequency Chronic,Continuous Other Pain Description pinching lateral ankle,tight; pain from bottom of foot across arch foot-elec Lowest Pain Intensity 2 Greatest Pain Intensity 4 Pain Aggravating Factors Walking,Weight Bearing/ Standing Other Pain Aggravating Factors report walk/stand tolerance 30 -40 min; with sleeping awaken 1-2 x/week Pain Behaviors Anxious,Grimacing,Guarding Pain Score Pain Score 3: Self Report Additional Pain Score Comments on blood thinner due to blood clots; leukotape strip start lateral
--- NOTE | 2021-02-19 08:32 | PCPTNOTE ---
Patient called & cancelled scheduled appointment, stating she needed to cancel. Will continue per POC.
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
--- NOTE | 2021-02-26 13:52 | PCPTNOTE ---
pt called and canceled due to having to work, unable to leave work to come to therapy today.
--- NOTE | 2021-03-03 15:05 | PCPTNOTE ---
pt called and canceled all her PT appt due to not being able to get off work, due to short staffed.
--- NOTE | 2021-03-19 15:47 | PCPTNOTE ---
PHYSICAL THERAPY DISCHARGE 03-19-21 Attending Provider: LEÓN Baker Patient:Mery Patel Date of :1975 Mrs. Patel has not returned for any further treatments since 02/17/2021; she called and canceled therapy due to not being able to get away from work to come in for appointments. I called her today and she reports she is doing OK, continuing to do her exercises and having only slight pain in ankle. Mery will be discharged at this time. The goals were not addressed. Thank you for referring Mrs. Patel to [facility]. Please review, sign, date and return this discharge summary CATHY. I have been updated about the patient's current status and I agree with discharge from the above service at this time. Referring Physician Date
== END 2021-04-20 08:49 | disposition home or self-care (01) ==
LOC: ANHPT 14:00
PROVIDERS: PCP Internal Medicine
DX: S99.912D Unspecified injury of left ankle, subsequent encounter (principal); M76.71 Peroneal tendinitis, right leg
CPT/HCPCS: 97035; 97110; 97140

== ENCOUNTER 2021-04-17 16:08 | Inpatient (IN) | payer BC, SELFPAY ==
--- NOTE | ~2021-04-17 | US_ITS ---
EXAMINATION: US venous doppler LE DATE: 04/21/2021 16:33 INDICATION: Right lower limb pain TECHNIQUE: Grayscale ultrasound images without and with compression and Doppler ultrasound images of the right lower extremity veins were obtained. COMPARISON: None. FINDINGS: The visualized portions of right common femoral vein, profunda (deep) femoral vein, femoral vein, pop liteal vein, peroneal trunk, posterior tibial veins, peroneal veins, gastrocnemius vein and greater s aphenous vein outflow are patent. IMPRESSION: 1. No deep venous thrombosis in the right lower limb. Reviewed, dictated and finalized at location B.
[2021-04-17 16:39] VITALS: BP 143/97; PULSE 90; RESP 14; TEMP 37.1; O2SAT 99
[2021-04-17 19:18] VITALS: BP 151/99; PULSE 74; RESP 17; O2SAT 98
--- NOTE | 2021-04-17 19:50 | ED.GENADULT ---
HPI - General Adult General Chief complaint: Extremity Problem,Nontraumatic Stated complaint: +DVT L LEG ON ELIQUIS Time Seen by Provider: 04/17/21 19:05 History of Present Illness HPI narrative: Patient is a 46-year-old female who presents ER with DVT. Patient diagnosed with DVT several months ago. She has been taking Eliquis outpatient. Developed new onset left calf pain yesterday. An outpatient ultrasound was arranged for today [place] which showed development of new DVT in the left calf. Patient was without chest pain or shortness of breath. She reports strict compliance with her Eliquis 5 mg twice daily. Patient has previous history of DVT and PE in the past. No new swelling to her leg. No new trauma. No prolonged immobilization. She believes she has been worked up for clotting disorder in the past and that it was unremarkable. Related Data Home Medications Medication Instructions Recorded Confirmed lisinopril 10 mg PO HS 10/21/20 04/18/21 Allergies Allergy/AdvReac Type Severity Reaction Status Date / Time Sulfa (Sulfonamide Allergy Rash Verified 04/18/21 00:08 Antibiotics) Review of Systems Review of Systems: All systems reviewed & are unremarkable except as noted in HPI and below Constitutional: Constitutional: Denies chills, Denies fever(s) and Denies weakness ENT: Denies nasal congestion and Denies sore throat Cardiovascular: Cardiovascular: Denies chest pain, Denies rapid heart rate and Denies radiating jaw, neck or arm pain Respiratory: Respiratory: Denies cough and Denies dyspnea Musculoskeletal: Musculoskeletal: Denies arthralgias and Reports muscle cramps (calf pain left) [facility] Past Medical History Medical History (Updated 04/18/21 @ 07:01 by Nash Cobian MD) DVT (deep venous thrombosis) Pulmonary embolus Surgical History Surgical History History of arthroscopy of right knee developed RSD postop - went through pain management Family History Family History Father Diabetes mellitus Sibling Asthma Social History Social History Smoking status: Current every day smoker Additional smoking assessment comments: Patient advised to discontinue smoking given her history of pulmonary embol Alcohol intake: former Substance use: never Gender identity (if verbalized by the patient): Female Spiritual care concerns: No Exam Narrative: GENERAL: Well-appearing, well-nourished, and in no acute distress. HEAD: Normocephalic, atraumatic. EYES: PERRL and EOMI. CHEST: Clear to auscultation. No respiratory distress. HEART: Regular rate and rhythm. Normal peripheral pulses. ABDOMEN: Soft, nontender, nondistended. EXTREMITIES: Normal range of motion. No edema. +Homans sign left calf. SKIN: Warm, dry, no rash. NEURO: Alert and oriented x3. PSYCH: Normal mood and affect. Course Course Emergency Course: Patient informed of the results. Admit for observation and facial be started on Lovenox and will be bridged to Coumadin. Vital Signs Vital signs: Vital Signs Temperature 98.8 F 04/17/21 16:39 Pulse Rate 90 04/17/21 16:39 Respiratory Rate 14 04/17/21 16:39 Blood Pressure 143/97 H 04/17/21 16:39 Pulse Oximetry 99 04/17/21 16:39 Temperature 98.3 F 04/18/21 06:00 Pulse Rate 65 04/18/21 06:00 Respiratory Rate 20 04/18/21 06:00 Blood Pressure 117/64 04/18/21 06:00 Pulse Oximetry 99 04/18/21 06:00 Medical Decision Making Vital Signs Vital Signs: Vital Signs Temperature 98.8 F 04/17/21 16:39 Pulse Rate 90 04/17/21 16:39 Respiratory Rate 14 04/17/21 16:39 Blood Pressure 143/97 H 04/17/21 16:39 Pulse Oximetry 99 04/17/21 16:39 Temperature 98.3 F 04/18/21 06:00 Pulse Rate 65 04/18/21 06:00 Respiratory Rate 20 04/18/21 06:00 Blood Pressu
[2021-04-17 20:44] LABS: Basophils Absolute Auto 0.1 K/mm3 (0.0-0.1); Basophils Percent Auto 0.9 % (0.2-1.2); Eosinophils Absolute Auto 0.3 K/mm3 (0-0.3); Eosinophils Percent Auto 3.4 % (0-4.4); Hematocrit 44.5 % (37.0-47.0); Hemoglobin 14.9 g/dL (12.0-15.0); Immature Granulocyte Absolute 0.05 K/mm3 (0.00-0.031); Immature Granulocyte Percent A 0.5 % (0-0.5); Lymphocytes Percent Auto 47.4 % (18.3-44.2); Mean Corpuscular HGB Conc 33.5 g/dl (32-36); Mean Corpuscular Hemoglobin 32.8 pg (26-34); Mean Platelet Volume 9.3 fl (7.4-10.4); Monocytes Absolute Auto 0.6 K/mm3 (0.1-0.6); Monocytes Percent Auto 6.2 % (2.6-8.5); Neutrophils Absolute Auto 4.2 K/mm3 (1.3-6.7); Neutrophils Percent Auto 41.6 % (45.5-73.1); Platelet Count Result 233 k/mm3 (150-375); Red Blood Count 4.54 M/mm3 (4.2-5.4); Red Cell Distribution Width 12.6 % (11.5-14.5); White Blood Count 10.1 K/mm3 (4.5-10.0)
[2021-04-17 20:53] LABS: Anion Gap 12 mmol/L (8-16); Blood Urea Nitrogen 18 mg/dL (7-17); Carbon Dioxide 21 mmol/L (22-30); Chloride 106 mmol/L (98-107); Estimated CRCL calculation 116 ml/min; Estimated Glomerular Filt Rate > 60; Glucose 104 mg/dL (65-110); Sodium 139 mmol/L (137-145)
[2021-04-17 20:54] LABS: Prothrombin Time 12.7 Seconds (11.1-14.7)
[2021-04-17 20:55] LABS: Partial Thromboplastin Time 28.9 SECONDS (22.3-36.8)
[2021-04-17 21:21] VITALS: BP 134/94; PULSE 65; RESP 18; O2SAT 98
[2021-04-17 22:36] VITALS: BP 134/89; PULSE 76; RESP 15; O2SAT 100
[2021-04-17] MEDS: HYDROcodone/acetaminophen (*CRX) 5-325 MG TABLET 1 TAB PO (22:45)
[2021-04-17] MEDS: ENOXAPARIN 120 MG/0.8 ML SYRINGE 110 MG SUB-Q (22:45)
--- NOTE | 2021-04-17 23:30 | PM.IMHP ---
H&P: HPI History of Present Illness Date/Time: 04/17/21 23:30 Chief Complaint: Left calf swelling Narrative: This is a 46-year-old female with past medical history significant for pulmonary embolism, DVT, tobacco dependence. Patient is on chronic anticoagulation with Eliquis she presented today to the emergency room due to left calf pain and swelling. Patient has been in her usual state of health up until 2 days ago when she fares 1st notice swelling and tenderness of her left calf decided to go see her primary care physician who in turn sent her to the emergency preliminary workup has been significant for acute deep vein thrombosis of the left lower extremity. Patient denies any chest pain ,shortness of breath, cough, sputum production ,fevers, rigors ,chills, hemoptysis ,syncope or near-syncope, lightheadedness, dizziness, PND or orthopnea, palpitations, nausea, vomiting abdominal pain or diarrhea. States that she takes her Eliquis daily. Decision have been made to place the patient in observation for further management treatment and evaluation. Review of Systems Review of Systems: Left calf swelling and tenderness Constitutional: Constitutional: Denies chills, Denies fatigue, Denies fever(s), Denies lethargy, Denies malaise and Denies night sweats Eyes: Eyes: Denies change in vision ENT: Denies dysphagia, Denies vertigo, Denies dizziness, Denies nasal congestion, Denies nasal discharge, Denies nasal obstruction and Denies odynophagia Cardiovascular: Cardiovascular: Denies chest pain, Denies irregular heart rhythm, Denies claudication, Denies lightheadedness, Denies radiating jaw, neck or arm pain, Denies palpitations, Denies dyspnea on exertion and Denies orthopnea Respiratory: Respiratory: Denies change in phlegm color, Denies cough, Denies excessive phlegm production, Denies pain on inspiration and Denies dyspnea Gastrointestinal: Gastrointestinal: Denies abdominal pain, Denies dyspepsia, Denies heartburn, Denies diarrhea and Denies vomiting Genitourinary: Genitourinary: Reports no additional female genitourinary complaints Musculoskeletal: Musculoskeletal: Reports arthralgias and Reports joint swelling Comments: Left lower extremity calf swelling and tenderness Integumentary/Breasts: Skin/Breast: Reports system reviewed and no additional complaints, except as docu Neurologic: Reports system reviewed and no additional complaints, except as documented Psychiatric: Psychiatric: Reports no additional psychiatric complaints Endocrine: Endocrine: Reports no additional endocrine complaints Hematologic/Lymphatic: Hematologic/Lymphatic: Reports no additional hematologic/lymphatic complaints Allergic/Immunologic: Allergic/Immunologic: Reports no additional allergic/immunologic complaints [facility] Past Medical History Medical History (Updated 04/18/21 @ 03:44 by Cindi Espino MD) DVT (deep venous thrombosis) Pulmonary embolus Surgical History Surgical History History of arthroscopy of right knee developed RSD postop - went through pain management Family History Family History Father Diabetes mellitus Sibling Asthma Social History Social History Smoking status: Current every day smoker Additional smoking assessment comments: Patient advised to discontinue smoking given her history of pulmonary embol Alcohol intake: former Substance use: never Gender identity (if verbalized by the patient): Female Spiritual care concerns: No Meds Home Medications and Allergies Home Medications Medication Instructions Recorded Confirmed Type lisinopril 10 mg PO HS 10/21/20 04/18/21 History Allergies Allergy/AdvReac Type Severity Reaction Status Date / Time Sulfa (Sulfonamide Allergy Rash Verified 04/18/21 00:08 Antibiotics) Vital Signs
[2021-04-17 23:56] VITALS: BP 132/89; PULSE 80; RESP 14; O2SAT 100
--- NOTE | 2021-04-18 | ECHO_ITS ---
Patient Info Name: Mery Patel Age: 46 years : 1975 Gender: Female Ht: 71 in Wt: 247 lbs BSA: 2.41 m2 BP: 117 / 64 mmHg Technical Quality: Fair Exam Date: 04/18/2021 7:43 AM Exam Location: [facility] Pulmonary Patient Status: Outpatient Admit Date: 04/17/2021 Staff Ordering Physician: Cindi Espino MD [employer] Operator: Qiana Catalan RDCS Attending Provider: Cindi Espino MD Referring Physician: Srinivas BOGGS; Exam Type: CA echo dop color flow w con Study Info Indications I80.299 - Phlebitis and thrombophlebitis of other deep vessels of unspecified lower extremity Complete two-dimensional, color flow and Doppler transthoracic echocardiogram is performed with contrast to opacify the left ventricle and to improve the deliniation of the left ventricle endocardial borders. Contrast/Agitated Saline Contrast/Ag. Saline: Definity Amount: 4.00 ml Summary 1. Left ventricular chamber dimension is normal. 2. Definity contrast administered improved wall motion interpretation. 3. Left ventricular systolic function is normal, estimated at 65-70%. 4. There is mildly increased left ventricular wall thickness. 5. The left ventricular diastolic function is normal. 6. E/e' 8 is minimally elevated. Left Ventricle E/e' 8 is minimally elevated. Definity contrast administered improved wall motion interpretation. Left ventricular chamber dimension is normal. Left ventricular systolic function is normal, estimated at 65-70%. There is mildly increased left ventricular wall thickness. The left ventricular diastolic function is normal. Right Ventricle Right ventricular systolic function is normal and with normal TAPSE 2.0 cm. Right ventricular chamber dimension is normal. Left Atria Left atrial chamber dimension is normal. Right Atria Right atrial chamber dimension is normal. Aortic Valve The aortic valve is trileaflet. There is no aortic valve stenosis. There is no aortic valve regurgitation. Pulmonic Valve There is no pulmonic regurgitation. Mitral Valve There is no mitral valve stenosis. There is no mitral valve regurgitation. Tricuspid Valve There is no tricuspid valve regurgitation. Pericardium/Pleural There is no pericardial effusion. Inferior Vena Cava Normal inferior vena cava with >50% collapse upon inspiration consistent with normal right atrial pressure, 5 mmHg. Aorta The aortic root size at the sinus of Valsalva is normal. Left Ventricular Outflow Tract Name Value Normal LVOT 2D LVOT Diameter 2.11 cm LVOT Doppler LVOT Peak Gradient 4 mmHg LVOT Mean Gradient 2 mmHg LVOT VTI 23.11 cm LVOT VTI/AV VTI Ratio 0.88 LVOT Stroke Volume 80.65 ml Pulmonic Valve Name Value Normal PV Doppler
[2021-04-18 00:30] VITALS: BP 113/60; PULSE 55; RESP 20; TEMP 37.1; O2SAT 100
[2021-04-18 00:44] VITALS: BMI 34.5
--- NOTE | 2021-04-18 00:45 | ADMGEN ---
This patient, Mery Patel, was admitted to 3 Med Surg Room 329-01 ay 0030. Patient/family oriented to hospital policies and general routines including ID bracelet, bed and alarms, visiting hours, pain management, procedures, bathroom and other care routines, personal items, smoking policy, room service/diet, and visiting hours. Information on how to activate the Rapid Response Team has been discussed. Patient/Family are encouraged to report perceived risks to care and to ask questions if they do not understand what they are told or what they should do.
[2021-04-18 06:00] VITALS: BP 117/64; PULSE 65; RESP 20; TEMP 36.8; O2SAT 99
--- NOTE | 2021-04-18 07:56 | PM.IMPN ---
Progress Note: A&P Additional Plan START OF DOCTOR KATHY?S PROGRESS NOTE Subjective: The patient complains of 8/10 left lower extremity pain. Aside from that she endorses no complaints. She denies fever, rigors, nausea, vomiting, cough, wheeze, abdominal pain, chest pain, dyspnea. I have explained to the patient her current medical condition plan care and I have answered all questions Objective: General: -Alert -No acute distress -No dyspnea -No tachypnea -obese Heart: -Regular rate -Regular rhythm -No murmurs -No gallops -No rubs Lungs: -No wheeze -No rhonchi -No rales Abdomen: -Normal bowel sounds in all four quadrants -No rebound -No guarding -No tenderness Extremities: -2/4 pulse in all four extremities -No clubbing -No cyanosis -mild left calf edema Additional Details / Additional Findings / Exceptions / Miscellaneous: There is tenderness to palpation of the left lower extremity. Homans sign negative. Pertinent Laboratory Results / Pertinent Radiology Results / Pertinent Diagnostic Results / Pertinent Vital Signs: Vital signs stable Assessment / Plan: Left lower extremity DVT-acute. Patient has prior history of DVT/PE. She indicates that she is compliant with Eliquis at home. Lower her 10 mg subcutaneously q.12 hours until INR therapeutic between level of 2 and 3. Coumadin 7.5 mg p.o. daily Prior history of PE/DVT Smoker. Patient counseled regarding smoking cessation Obesity. Patient counseled regarding lifestyle modification Hypertension. Lisinopril 10 mg p.o. daily DVT prophylaxis. Lovenox 110 mg subcutaneously q.12 hours plus Coumadin 7.5 mg p.o. daily. Will check daily PT/INR Disposition: Typically I would inquire about discharging the patient with Minnie Lovenox in conjunction with Coumadin, however given the patient's prior history of DVT/PE, will monitor her in the hospital until her INR is therapeutic between level 2 and 3. This anticipate to take 48-120 hours END OF DOCTOR KATHY?S PROGRESS NOTE Subjective Date/time seen: 04/18/21 07:56 Objective Data Vital Signs Vital Signs: Vital Signs - 24 hr 04/17/21 16:39 04/17/21 19:18 04/17/21 21:21 Temperature 98.8 F Pulse Rate 90 74 65 Respiratory Rate 14 17 18 Blood Pressure 143/97 H 151/99 H 134/94 H Pulse Oximetry 99 98 98 04/17/21 22:36 04/17/21 23:56 04/18/21 00:30 Temperature 98.7 F Pulse Rate 76 80 55 L Respiratory Rate 15 14 20 Blood Pressure 134/89 132/89 113/60 Pulse Oximetry 100 100 100 04/18/21 06:00 Temperature 98.3 F Pulse Rate 65 Respiratory Rate 20 Blood Pressure 117/64 Pulse Oximetry 99 Intake/Output Intake/Output: Intake & Output 04/15/21 04/16/21 04/17/21 04/18/21 23:59 23:59 23:59 23:59 Intake Total 100 Balance 100 Meds/Results Medications: Active Medications Generic Name Dose Route Start Last Admin Trade Name Freq PRN Reason Stop Dose Admin Acetaminophen 650 mg 04/17/21 22:19 Acetaminophen 325 Mg Tablet PO Q4H PRN Mild Pain (1-3) or Fever Hydrocodone Bitart/Acetaminophen 1 tab 04/17/21 22:19 Hydrocodone/Acetaminophen (*Crx) 5-325 Mg Tablet PO Q4H PRN Pain Rated 4-6 Enoxaparin Sodium 110 mg 04/18/21 07:55 Enoxaparin 100 Mg/Ml Syringe SUB-Q Q12H [facility] Lisinopril 10 mg 04/18/21 21:00 Lisinopril 10 Mg Tablet PO HS [facility] Morphine Sulfate 4 mg 04/17/21 22:19 Morphine Sulfate (*Crx) 4 Mg/Ml Inj IV PUSH Q2H PRN Pain Rated 7-10 Ondansetron HCl 4 mg 04/17/21 22:19 Ondansetron Inj 4 Mg/2 Ml Vial IV PUSH Q4H PRN Nausea Warfarin Sodium 7.5 mg 04/18/21 09:00 Warfarin (*Pbkc) 7.5 Mg Tablet PO DAILY@1700 [facility] Labs Labs: Laboratory Results - last 24 hr 04/17/21 04/17/21 04/17/21 20:38 20:38 20:38 WBC 10.1 H RBC 4.54 Hgb 14.9 Hct 44.5 MCV 98.0 MCH 32.8 MCHC 33.5 RDW 12.6 Plt Count 233 MPV 9
[2021-04-18] MEDS: HYDROcodone/acetaminophen (*CRX) 5-325 MG TABLET 1 TAB PO ×2 (09:05→20:10)
[2021-04-18] MEDS: WARFARIN (*PBKC) 7.5 MG TABLET PO (09:26)
[2021-04-18] MEDS: ENOXAPARIN 120 MG/0.8 ML SYRINGE 110 MG SUB-Q ×2 (09:26→20:06)
[2021-04-18 14:00] VITALS: BP 112/64; PULSE 53; RESP 16; TEMP 36.4; O2SAT 98
[2021-04-18 20:00] VITALS: PULSE 62; RESP 20; O2SAT 97
[2021-04-18] MEDS: lisinopriL 10 MG TABLET PO (20:06)
[2021-04-18 22:00] VITALS: BP 110/62; PULSE 62; RESP 20; TEMP 36.6; O2SAT 97
[2021-04-19 06:00] VITALS: BP 114/65; PULSE 66; RESP 20; TEMP 36.6; O2SAT 98
[2021-04-19 06:53] LABS: INR 1.1; Prothrombin Time 13.7 Seconds (11.1-14.7)
[2021-04-19 08:00] VITALS: O2SAT 100
--- NOTE | 2021-04-19 08:07 | PM.IMPN ---
Progress Note: A&P Additional Plan START OF DOCTOR KATHY?S PROGRESS NOTE Subjective: The patient complains of minor back pain which he attributes to the hospital bed. She also complains of minor left lower extremity pain at the site of her DVT. Aside from that she endorses no complaints. Overnight she was here, rigors, nausea, vomiting, cough, wheeze, abdominal pain, chest pain, dyspnea, or any other concerns or complaints. I have explained to the patient her current medical condition plan of care and advanced all questions Objective: General: -Alert -No acute distress -No dyspnea -No tachypnea -obese Heart: -Regular rate -Regular rhythm -No murmurs -No gallops -No rubs Lungs: -No wheeze -No rhonchi -No rales Abdomen: -Normal bowel sounds in all four quadrants -No rebound -No guarding -No tenderness Extremities: -2/4 pulse in all four extremities -No clubbing -No cyanosis -mild left calf edema Additional Details / Additional Findings / Exceptions / Miscellaneous: Pertinent Laboratory Results / Pertinent Radiology Results / Pertinent Diagnostic Results / Pertinent Vital Signs: Vital signs stable Assessment / Plan: Left lower extremity DVT-acute. Patient has prior history of DVT/PE. She indicates that she is compliant with Eliquis at home. Lower her 10 mg subcutaneously q.12 hours until INR therapeutic between level of 2 and 3. Coumadin 7.5 mg p.o. daily Prior history of PE/DVT Smoker. Patient counseled regarding smoking cessation Obesity. Patient counseled regarding lifestyle modification Hypertension. Lisinopril 10 mg p.o. daily DVT prophylaxis. Lovenox 110 mg subcutaneously q.12 hours plus Coumadin 7.5 mg p.o. daily. Will check daily PT/INR Disposition: Typically I would inquire about discharging the patient with Minnie Lovenox in conjunction with Coumadin, however given the patient's prior history of DVT/PE, will monitor her in the hospital until her INR is therapeutic between level 2 and 3. This anticipate to take 48-120 hours END OF DOCTOR KATHY?S PROGRESS NOTE Subjective Date/time seen: 04/19/21 08:07 Objective Data Vital Signs Vital Signs: Vital Signs - 24 hr 04/18/21 14:00 04/18/21 20:00 04/18/21 22:00 Temperature 97.6 F 97.8 F Pulse Rate 53 L 62 62 Respiratory Rate 16 20 20 Blood Pressure 112/64 110/62 Pulse Oximetry 98 97 97 04/19/21 06:00 Temperature 97.9 F Pulse Rate 66 Respiratory Rate 20 Blood Pressure 114/65 Pulse Oximetry 98 Intake/Output Intake/Output: Intake & Output 04/16/21 04/17/21 04/18/21 04/19/21 23:59 23:59 23:59 23:59 Intake Total 1989 350 Output Total 600 Balance 1989 - Meds/Results Medications: Active Medications Generic Name Dose Route Start Last Admin Trade Name Freq PRN Reason Stop Dose Admin Acetaminophen 650 mg 04/17/21 22:19 Acetaminophen 325 Mg Tablet PO Q4H PRN Mild Pain (1-3) or Fever Hydrocodone Bitart/Acetaminophen 1 tab 04/17/21 22:19 04/18/21 20:10 Hydrocodone/Acetaminophen (*Crx) 5-325 Mg Tablet PO 1 tab Q4H PRN Administration Pain Rated 4-6 Enoxaparin Sodium 110 mg 04/18/21 10:00 04/18/21 20:06 Enoxaparin 120 Mg/0.8 Ml Syringe SUB-Q 110 mg Q12H [facility] Administration Lisinopril 10 mg 04/18/21 21:00 04/18/21 20:06 Lisinopril 10 Mg Tablet PO 10 mg HS [facility] Administration Morphine Sulfate 4 mg 04/17/21 22:19 Morphine Sulfate (*Crx) 4 Mg/Ml Inj IV PUSH Q2H PRN Pain Rated 7-10 Ondansetron HCl 4 mg 04/17/21 22:19 Ondansetron Inj 4 Mg/2 Ml Vial IV PUSH Q4H PRN Nausea Warfarin Sodium 7.5 mg 04/18/21 09:00 04/18/21 09:26 Warfarin (*Pbkc) 7.5 Mg Tablet PO 7.5 mg DAILY@1700 [facility] Administration Labs Labs: Laboratory Results - last 24 hr 04/19/21 06:06 PT 13.7 INR 1.1
[2021-04-19] MEDS: HYDROcodone/acetaminophen (*CRX) 5-325 MG TABLET 1 TAB PO ×3 (08:18→21:51)
[2021-04-19] MEDS: ENOXAPARIN 120 MG/0.8 ML SYRINGE 110 MG SUB-Q ×2 (10:59→20:15)
[2021-04-19 14:00] VITALS: BP 120/75; PULSE 73; RESP 18; TEMP 36.4; O2SAT 99
[2021-04-19] MEDS: WARFARIN (*PBKC) 7.5 MG TABLET PO (17:30)
[2021-04-19 20:00] VITALS: PULSE 66; RESP 20; O2SAT 96
[2021-04-19] MEDS: lisinopriL 10 MG TABLET PO (20:16)
[2021-04-19 22:00] VITALS: BP 99/44; PULSE 66; RESP 20; TEMP 36.6; O2SAT 96
[2021-04-20] MEDS: HYDROcodone/acetaminophen (*CRX) 5-325 MG TABLET 1 TAB PO ×4 (05:09→21:50)
[2021-04-20 06:00] VITALS: BP 123/78; PULSE 70; RESP 20; TEMP 36.5; O2SAT 99
[2021-04-20 06:22] LABS: INR 1.1; Prothrombin Time 14.1 Seconds (11.1-14.7)
--- NOTE | 2021-04-20 07:26 | PM.IMPN ---
Progress Note: A&P Additional Plan START OF DOCTOR KATHY?S PROGRESS NOTE Subjective: The patient complains of 4/10 the lower left lower extremity pain. Aside from this she also endorses mild low back pain which she attributes to the hospital bed. Overnight she denies fever, rigors, nausea, vomiting, cough, wheeze, abdominal pain, chest pain, dyspnea, or any other concerns complaints. I have explained to the patient her current medical condition plan of care and answered all questions Objective: General: -Alert -No acute distress -No dyspnea -No tachypnea -obese Heart: -Regular rate -Regular rhythm -No murmurs -No gallops -No rubs Lungs: -No wheeze -No rhonchi -No rales Abdomen: -Normal bowel sounds in all four quadrants -No rebound -No guarding -No tenderness Extremities: -2/4 pulse in all four extremities -No clubbing -No cyanosis -mild left calf edema Additional Details / Additional Findings / Exceptions / Miscellaneous: Pertinent Laboratory Results / Pertinent Radiology Results / Pertinent Diagnostic Results / Pertinent Vital Signs: Blood pressure 99/44, INR 1.1 Assessment / Plan: Left lower extremity DVT-acute. Patient has prior history of DVT/PE. She indicates that she is compliant with Eliquis at home. Lower her 10 mg subcutaneously q.12 hours until INR therapeutic between level of 2 and 3. Coumadin 10 mg p.o. daily Prior history of PE/DVT Smoker. Patient counseled regarding smoking cessation Obesity. Patient counseled regarding lifestyle modification Hypertension. Lisinopril 10 mg p.o. daily DVT prophylaxis. Lovenox 110 mg subcutaneously q.12 hours plus Coumadin 10 mg p.o. daily. Will check daily PT/INR Disposition: Typically I would inquire about discharging the patient with Minnie Lovenox in conjunction with Coumadin, however given the patient's prior history of DVT/PE, will monitor her in the hospital until her INR is therapeutic between level 2 and 3. END OF DOCTOR KATHY?S PROGRESS NOTE Subjective Date/time seen: 04/20/21 07:26 Objective Data Vital Signs Vital Signs: Vital Signs - 24 hr 04/19/21 08:00 04/19/21 14:00 04/19/21 20:00 Temperature 97.5 F L Pulse Rate 73 66 Respiratory Rate 18 20 Blood Pressure 120/75 Pulse Oximetry 100 99 96 04/19/21 22:00 04/20/21 06:00 Temperature 97.8 F 97.7 F Pulse Rate 66 70 Respiratory Rate 20 20 Blood Pressure 99/44 L 123/78 Pulse Oximetry 96 99 Intake/Output Intake/Output: Intake & Output 04/17/21 04/18/21 04/19/21 04/20/21 23:59 23:59 23:59 23:59 Intake Total 1989 2420 500 Output Total 1500 600 Balance 1989 920 -100 Meds/Results Medications: Active Medications Generic Name Dose Route Start Last Admin Trade Name Freq PRN Reason Stop Dose Admin Acetaminophen 650 mg 04/17/21 22:19 Acetaminophen 325 Mg Tablet PO Q4H PRN Mild Pain (1-3) or Fever Hydrocodone Bitart/Acetaminophen 1 tab 04/17/21 22:19 04/20/21 05:09 Hydrocodone/Acetaminophen (*Crx) 5-325 Mg Tablet PO 1 tab Q4H PRN Administration Pain Rated 4-6 Enoxaparin Sodium 110 mg 04/18/21 10:00 04/19/21 20:15 Enoxaparin 120 Mg/0.8 Ml Syringe SUB-Q 110 mg Q12H [facility] Administration Lisinopril 10 mg 04/18/21 21:00 04/19/21 20:16 Lisinopril 10 Mg Tablet PO 10 mg HS [facility] Administration Morphine Sulfate 4 mg 04/17/21 22:19 Morphine Sulfate (*Crx) 4 Mg/Ml Inj IV PUSH Q2H PRN Pain Rated 7-10 Ondansetron HCl 4 mg 04/17/21 22:19 Ondansetron Inj 4 Mg/2 Ml Vial IV PUSH Q4H PRN Nausea Warfarin Sodium 10 mg 04/20/21 07:30 Warfarin (*Pbkc) 10 Mg Tablet PO DAILY@1700 [facility] Labs Labs: Laboratory Results - last 24 hr 04/20/21 05:39 PT 14.1 INR 1.1
[2021-04-20 08:00] VITALS: O2SAT 100
[2021-04-20] MEDS: ENOXAPARIN 120 MG/0.8 ML SYRINGE 110 MG SUB-Q ×2 (10:31→21:50)
[2021-04-20 14:00] VITALS: BP 130/76; PULSE 66; RESP 20; TEMP 36.9; O2SAT 100
[2021-04-20] MEDS: WARFARIN (*PBKC) 10 MG TABLET PO (17:36)
[2021-04-20] MEDS: lisinopriL 10 MG TABLET PO (21:50)
[2021-04-20 22:00] VITALS: BP 132/87; PULSE 56; RESP 16; TEMP 36.7; O2SAT 99
[2021-04-21 01:26] VITALS: PULSE 66; RESP 20; O2SAT 100
[2021-04-21] MEDS: HYDROcodone/acetaminophen (*CRX) 5-325 MG TABLET 1 TAB PO ×3 (04:33→21:27)
[2021-04-21 06:00] VITALS: BP 116/72; PULSE 59; RESP 16; TEMP 36.3; O2SAT 100
[2021-04-21 06:46] LABS: INR 1.3; Prothrombin Time 15.9 Seconds (11.1-14.7)
--- NOTE | 2021-04-21 08:15 | PM.IMPN ---
Progress Note: A&P Additional Plan START OF DOCTOR KATHY?S PROGRESS NOTE Subjective: The patient complains of 4/10 left lower left lower extremity pain. Aside from this she endorses no complaints. She denies fever, rigors, nausea, vomiting, cough, wheeze, abdominal pain, chest pain, dyspnea, or any other constitutional complaints. I have explained to the patient her current medical condition plan of care and I have answered all her questions Objective: General: -Alert -No acute distress -No dyspnea -No tachypnea -obese Heart: -iRegular rate -Regular rhythm -No murmurs -No gallops -No rubs Lungs: -No wheeze -No rhonchi -No rales Abdomen: -Normal bowel sounds in all four quadrants -No rebound -No guarding -No tenderness Extremities: -2/4 pulse in all four extremities -No clubbing -No cyanosis -mild left calf edema Additional Details / Additional Findings / Exceptions / Miscellaneous: Pertinent Laboratory Results / Pertinent Radiology Results / Pertinent Diagnostic Results / Pertinent Vital Signs: Heart rate 59, INR 1.3 Assessment / Plan: Left lower extremity DVT-acute. Patient has prior history of DVT/PE. She indicates that she is compliant with Eliquis at home. Lower her 10 mg subcutaneously q.12 hours until INR therapeutic between level of 2 and 3. Coumadin 10 mg p.o. daily Prior history of PE/DVT Smoker. Patient counseled regarding smoking cessation Obesity. Patient counseled regarding lifestyle modification Hypertension. Lisinopril 10 mg p.o. daily DVT prophylaxis. Lovenox 110 mg subcutaneously q.12 hours plus Coumadin 10 mg p.o. daily. Will check daily PT/INR Disposition: Typically I would inquire about discharging the patient with Minnie Lovenox in conjunction with Coumadin, however given the patient's prior history of DVT/PE, will monitor her in the hospital until her INR is therapeutic between level 2 and 3. END OF DOCTOR KATHY?S PROGRESS NOTE Subjective Date/time seen: 04/21/21 08:15 Objective Data Vital Signs Vital Signs: Vital Signs - 24 hr 04/20/21 14:00 04/20/21 22:00 04/21/21 01:26 Temperature 98.4 F 98.0 F Pulse Rate 66 56 L 66 Respiratory Rate 20 16 20 Blood Pressure 130/76 132/87 Pulse Oximetry 100 99 100 04/21/21 06:00 Temperature 97.4 F L Pulse Rate 59 L Respiratory Rate 16 Blood Pressure 116/72 Pulse Oximetry 100 Intake/Output Intake/Output: Intake & Output 04/18/21 04/19/21 04/20/21 04/21/21 23:59 23:59 23:59 23:59 Intake Total 1989 2420 1510 400 Output Total 1500 2300 1100 Balance 1989 808 -276 -187 Meds/Results Medications: Active Medications Generic Name Dose Route Start Last Admin Trade Name Freq PRN Reason Stop Dose Admin Acetaminophen 650 mg 04/17/21 22:19 Acetaminophen 325 Mg Tablet PO Q4H PRN Mild Pain (1-3) or Fever Hydrocodone Bitart/Acetaminophen 1 tab 04/17/21 22:19 04/21/21 04:33 Hydrocodone/Acetaminophen (*Crx) 5-325 Mg Tablet PO 1 tab Q4H PRN Administration Pain Rated 4-6 Enoxaparin Sodium 110 mg 04/18/21 10:00 04/20/21 21:50 Enoxaparin 120 Mg/0.8 Ml Syringe SUB-Q 110 mg Q12H [facility] Administration Lisinopril 10 mg 04/18/21 21:00 04/20/21 21:50 Lisinopril 10 Mg Tablet PO 10 mg HS [facility]GI Administration Morphine Sulfate 4 mg 04/17/21 22:19 Morphine Sulfate (*Crx) 4 Mg/Ml Inj IV PUSH Q2H PRN Pain Rated 7-10 Ondansetron HCl 4 mg 04/17/21 22:19 Ondansetron Inj 4 Mg/2 Ml Vial IV PUSH Q4H PRN Nausea Warfarin Sodium 10 mg 04/20/21 17:00 04/20/21 17:36 Warfarin (*Pbkc) 10 Mg Tablet PO 10 mg DAILY@1700 [facility] Administration Labs Labs: Laboratory Results - last 24 hr 04/21/21 05:35 PT 15.9 H INR 1.3
[2021-04-21] MEDS: ENOXAPARIN 120 MG/0.8 ML SYRINGE 110 MG SUB-Q ×2 (10:09→21:27)
[2021-04-21 14:00] VITALS: BP 128/73; PULSE 74; RESP 20; TEMP 36.7; O2SAT 100
--- NOTE | 2021-04-21 14:54 | PC.NURSE ---
On 04/21/21, the student, [Demi Bahena ], provided care and completed [facility] documentation on this patient. I have reviewed the student's documentation and agree with the findings.
[2021-04-21] MEDS: ACETAMINOPHEN 325 MG TABLET 650 MG PO (15:20)
--- NOTE | 2021-04-21 16:25 | PC.NURSE ---
patient to ultrasound per stretcher
--- NOTE | 2021-04-21 16:34 | PC.NURSE ---
patient returning to room from ultrasound
[2021-04-21] MEDS: WARFARIN (*PBKC) 10 MG TABLET PO (16:42)
[2021-04-21] MEDS: lisinopriL 10 MG TABLET PO (21:27)
[2021-04-21 22:00] VITALS: BP 134/77; PULSE 53; RESP 20; TEMP 36.5; O2SAT 99
[2021-04-22] MEDS: HYDROcodone/acetaminophen (*CRX) 5-325 MG TABLET 1 TAB PO (03:15)
[2021-04-22 06:00] VITALS: BP 133/77; PULSE 71; RESP 20; TEMP 36.3; O2SAT 99
[2021-04-22 07:22] LABS: Prothrombin Time 21.8 Seconds (11.1-14.7)
--- NOTE | 2021-04-22 08:17 | PM.DS ---
DS: Admitting Diagnosis Discharge Date 8:18 a.m. on April 22, 2021 Admitting Diagnosis Left lower extremity DVT-acute DS: Summary Hospital Course Hospital Course: See discharge summary below Time Spent with Patient Time attestation: Total time spent providing and/or coordinating discharge services: START OF DOCTOR WADE DISCHARGE SUMMARY Date of Admission: April 17, 2021 Date of Discharge: 8:17 a.m. on April 22, 2021 Primary Diagnosis: Left lower extremity DVT-acute Secondary Diagnosis: Prior history of PE/DVT Smoker Obesity Hypertension Consultations: None Disposition: The patient required check a PT/INR 3 days post discharge for diagnosis of DVT The patient will be advised follow-up with her primary care physician 4 days post discharge for management of her Coumadin/warfarin for diagnosis of left lower extremity DVT-acute The patient is advised follow-up with Hematology/Oncology 1-2 weeks post discharge for diagnosis of DVT and prior history of DVT/PE Discharge Medications: Lisinopril 10 mg p.o. daily Coumadin 5 mg p.o. daily. Quantity 7. 0 refills END OF DOCTOR WADE DISCHARGE SUMMARY DS: Data Data Completed and Pending Labs on day of discharge: Labs from last 24 hours 04/22/21 06:13 PT 21.8 H D INR 2.0 Discharge Plan Discharge Discharging Clinician: Dr. Caputo Patient Disposition: Home, Self-Care Activity: as tolerated Diet: low sodium Discharge Instructions: The patient will require check PT/INR 3 days post discharge for diagnosis of DVT The patient will be advised follow-up with her primary care physician 4 days post discharge for management of upper Coumadin/warfarin based on the PT/INR checked 3 days post discharge The patient is advised follow-up with Hematology/Oncology 1-2 weeks post discharge for diagnosis of history of PE/DVT Patient Instructions: Antibiotic Form, Warfarin (By mouth), Deep Vein Thrombosis (DC), Safe Use of Anticoagulants (DC) Stand Alone Forms: General Discharge Information Follow-up/Referrals: Riley Caputo DO [Physician] - Discharge Medications: New warfarin 5 mg tablet 5 mg PO DAILY Qty: 7 RF: 0 Continued lisinopril 10 mg tablet 10 mg PO HS RF: 0 Date of admission: 04/20/21 13:27 Primary Care Provider: VinicioWilberto Admitting Provider: Cindi Espino V. Attending physician on admission: Cindi Espino V. Condition: Stable
[2021-04-22] MEDS: ACETAMINOPHEN 325 MG TABLET 650 MG PO (09:07)
[2021-04-22] MEDS: ENOXAPARIN 120 MG/0.8 ML SYRINGE 110 MG SUB-Q (09:08)
== END 2021-04-22 11:30 | disposition home or self-care (01) | DRG 301 ==
LOC: ANHED 19:05 → ANH3MEDSUR 23:12
PROVIDERS: Admitting Provider Internal Medicine; Emergency Provider Emergency Medicine; PCP Internal Medicine; Visit Provider Internal Medicine
DX: I82.402 Acute embolism and thrombosis of unspecified deep veins of left lower extremity (principal); F17.200 Nicotine dependence, unspecified, uncomplicated; E66.9 Obesity, unspecified; Z68.34 Body mass index [BMI] 34.0-34.9, adult; I10 Essential (primary) hypertension; Z86.711 Personal history of pulmonary embolism; Z86.718 Personal history of other venous thrombosis and embolism; Z79.01 Long term (current) use of anticoagulants
CPT/HCPCS: 36415; 80048; 85025; 85610; 85730; 93971; 96372; 99285; A9270; C8929; G0378; J1650; Q9957

== ENCOUNTER 2021-06-07 10:35 | Emergency (ER) | payer BC, SELFPAY ==
--- NOTE | ~2021-06-07 | US_ITS ---
EXAMINATION: US venous doppler [facility] EXAM DATE: 06/07/2021 12:06 INDICATION: Left calf pain. TECHNIQUE: Multiple grayscale, color flow and Doppler images of the left lower extremity deep venous system obtained and reviewed. Comparison is made to prior examination from 10/21/2020. FINDINGS: LEFT SIDE Common femoral: -------- Normal. Profunda femoral: ------- Normal. Femoral: Normal. Popliteal: Normal. Posterior tibial: ---------Portions are thrombosed. Peroneal: Portions are thrombosed. Gastrocnemius: Not visualized. Soleus: Not visualized. Greater saphenous: ----- Normal. Lesser saphenous: ------ Not visualized. IMPRESSION: Positive for left peroneal, posterior tibial DVT. I discussed thrombus with Karime Zendejas PA-C at 06/07/2021 12:17 RIPSAWYER. Reviewed, dictated and finalized at location A. AWYER
[2021-06-07 10:55] VITALS: BP 151/65; PULSE 78; RESP 18; TEMP 36.6; O2SAT 95
[2021-06-07 11:25] LABS: Basophils Absolute Auto 0.1 K/mm3 (0.0-0.1); Basophils Percent Auto 0.8 % (0.2-1.2); Eosinophils Absolute Auto 0.3 K/mm3 (0-0.3); Eosinophils Percent Auto 3.1 % (0-4.4); Hematocrit 42.8 % (37.0-47.0); Hemoglobin 14.6 g/dL (12.0-15.0); Immature Granulocyte Absolute 0.05 K/mm3 (0.00-0.031); Immature Granulocyte Percent A 0.6 % (0-0.5); Lymphocytes Absolute Auto 2.94 K/mm3 (0.9-3.2); Lymphocytes Percent Auto 32.7 % (18.3-44.2); Mean Corpuscular HGB Conc 34.1 g/dl (32-36); Mean Corpuscular Volume 96.8 fl (80-100); Mean Platelet Volume 9.2 fl (7.4-10.4); Monocytes Absolute Auto 0.7 K/mm3 (0.1-0.6); Monocytes Percent Auto 7.6 % (2.6-8.5); Neutrophils Percent Auto 55.2 % (45.5-73.1); Platelet Count Result 222 k/mm3 (150-375); Red Blood Count 4.42 M/mm3 (4.2-5.4); Red Cell Distribution Width 13.2 % (11.5-14.5)
--- NOTE | 2021-06-07 11:29 | ED.GENADULT ---
HPI - General Adult General Chief complaint: Unspecified Stated complaint: possible blood clot in left leg Time Seen by Provider: 06/07/21 11:10 Source: patient Mode of arrival: ambulatory Limitations: no limitations History of Present Illness HPI narrative: This is a 46-year-old female that presents to the emergency department for left calf pain. Reports a feeling of a charley horse in the left calf that has been ongoing since early this morning. Reports history of multiple blood clots in the legs. She is currently on warfarin. She has been taking this as prescribed. Reports she has been therapeutic. Denies fever, chest pain, shortness of breath. Related Data Home Medications Medication Instructions Recorded Confirmed lisinopril 10 mg PO HS 10/21/20 04/18/21 warfarin 06/07/21 Allergies Allergy/AdvReac Type Severity Reaction Status Date / Time Sulfa (Sulfonamide Allergy Rash Verified 06/07/21 13:34 Antibiotics) Review of Systems Review of Systems: CONSTITUTIONAL: Denies fever CARDIOVASCULAR: Denies chest pain or edema. RESPIRATORY: Denies dyspnea. MUSCULOSKELETAL: Reports myalgia. NEUROLOGIC: Denies numbness All systems reviewed & are unremarkable except as noted in HPI and below PMFSH Past Medical History Medical History (Updated 06/07/21 @ 13:38 by Karime Zendejas PA-C) DVT (deep venous thrombosis) Pulmonary embolus Surgical History Surgical History History of arthroscopy of right knee developed RSD postop - went through pain management Family History Family History Father Diabetes mellitus Sibling Asthma Social History Social History Smoking status: Current every day smoker Additional smoking assessment comments: Patient advised to discontinue smoking given her history of pulmonary embol Alcohol intake: former Substance use: never Gender identity (if verbalized by the patient): Female Spiritual care concerns: No Exam Narrative: GENERAL: Well-appearing, well-nourished, and in no acute distress. HEAD: Normocephalic, atraumatic. EYES: EOMI. CHEST: No respiratory distress. HEART: Regular rate EXTREMITIES: Normal range of motion. No edema or erythema. Normal DP pulses. Normal sensation SKIN: Warm, dry, no rash. NEURO: No focal deficits. Alert and oriented x3. PSYCH: Normal mood and affect Course Consultations Consultation #1: Spoke with Dr. Valdovinos about patient and workup. Patient given option of staying for heparin, transition to Lovenox. Or discharge on Lovenox. Patient wishes to be discharged. Patient will be started on Lovenox and is to follow-up in clinic. Date: 06/07/21 Time: 13:00 Vital Signs Vital signs: Vital Signs Temperature 97.9 F 06/07/21 10:55 Pulse Rate 78 06/07/21 10:55 Respiratory Rate 18 06/07/21 10:55 Blood Pressure 151/65 H 06/07/21 10:55 Pulse Oximetry 95 06/07/21 10:55 Temperature 97.9 F 06/07/21 10:55 Pulse Rate 78 06/07/21 10:55 Respiratory Rate 18 06/07/21 10:55 Blood Pressure 151/65 H 06/07/21 10:55 Pulse Oximetry 95 06/07/21 10:55 Medical Decision Making [facility] Narrative Medical decision making narrative: Patient presents to the emergency department for left calf pain since this morning. She is afebrile and nontoxic-appearing. She is not tachycardic. Oxygen saturation is normal on room air. She denies any chest pain or shortness of breath. CBC and metabolic panel without concerning findings. Patient's INR is therapeutic. Ultrasound venous Doppler of the left lower extremity does show an acute DVT in the left peroneal and posterior tibial veins. Patient unfortunately has developed blood clots on Eliquis and on warfarin this year. Spoke with Dr. Valdovinos about patient and workup. Patient given option of staying for heparin, transit
[2021-06-07 11:33] LABS: Partial Thromboplastin Time 38.3 SECONDS (22.3-36.8)
[2021-06-07 11:34] LABS: Anion Gap 7 mmol/L (8-16); Blood Urea Nitrogen 16 mg/dL (7-17); Calcium 8.9 mg/dL (8.4-10.2); Carbon Dioxide 27 mmol/L (22-30); Chloride 106 mmol/L (98-107); Estimated CRCL calculation 118 ml/min; Estimated Glomerular Filt Rate > 60; Glucose 113 mg/dL (65-110); Potassium 3.9 mmol/L (3.4-5.0); Sodium 140 mmol/L (137-145)
--- NOTE | 2021-06-07 13:19 | PCCCNOTE ---
Addendum entered by Lidia Vega RN 06/07/21 14:04: Called back to pharmacy to get the name of the pharmacist. Long hold, pharmacist on line and confirms names Ruchi Menard, she is the one that spoke with me earlier and she states that they do have the prescription available and that is has come through successfully. Original Note: Called by RAGHAV Zendejas to check insurance coverage for Enoxaparin 100mg SQ Q12 for 30 days. Called to [facility] per pharmacy preference on the chart. Spoke with pharmacist - provided demographic details and prescription. She states that there is a Zero copay and prior auth is not needed. She does not that a Dr. Camarena on [address] has but an order in for higher dosage for days but not starting until June. Confirmed again that there is zero copay and no prior auth is needed. Pharmacist requests school childcare attendant about the future order yan called in. To the ED, Spoke with RAGHAV Zendejas and notified that per pharmacy there is no copay and no prior auth needed also advised of the future order entered for patient as directed by pharmacist.
[2021-06-07] MEDS: ACETAMINOPHEN 500 MG TABLET 1000 MG PO (13:53)
[2021-06-07] MEDS: ENOXAPARIN 120 MG/0.8 ML SYRINGE 110 MG SUB-Q (13:54)
[2021-06-07 14:00] VITALS: BP 140/80; PULSE 70; RESP 16; O2SAT 97
== END 2021-06-07 14:00 | disposition home or self-care (01) ==
PROVIDERS: Physician Assistant; Emergency Provider Emergency Medicine; PCP Internal Medicine
DX: I82.442 Acute embolism and thrombosis of left tibial vein (principal); I82.452 Acute embolism and thrombosis of left peroneal vein; Z86.718 Personal history of other venous thrombosis and embolism; Z86.711 Personal history of pulmonary embolism; Z79.01 Long term (current) use of anticoagulants; F17.200 Nicotine dependence, unspecified, uncomplicated
CPT/HCPCS: 36415; 80048; 85025; 85610; 85730; 93971; 96372; 99284; A9270; J1650

== ENCOUNTER 2021-06-15 13:30 | Emergency (ER) | payer BC, SELFPAY ==
--- NOTE | ~2021-06-15 | XR_ITS ---
XR chest 2V 06/15/2021 14:12 Indication: Chest pressure. History of blood clots. Procedure: PA and lateral views of the chest Comparison: CT chest dated 01/28/2021 Findings: There is chronic elevation the right diaphragm with underlying right basilar atelectasis/sc arring. Heart size normal. No focal air space disease, pulmonary edema, pleural effusion or suspected pneumothorax. Impression: 1: No acute cardiopulmonary disease. No significant change from prior CT allowing for differences of technique. Reviewed, dictated and finalized at location B. LASS FRAMES POLISHER Impression: 1: No acute cardiopulmonary disease. No significant change from prior CT allowi ng for differences of technique.
--- NOTE | ~2021-06-15 | CT_ITS ---
EXAMINATION: CTA chest PE protocol DATE: 06/15/2021 18:43 INDICATION: Chest pressure. TECHNIQUE: Computed tomography angiography (CTA) of the chest was performed with 200 mL Omnipaque-350 intravenous contrast timed to evaluate the pulmonary arteries. Coronal maximum intensity projection 3D-reconstructions were created by the technologist. Automated exposure control and iterative reconst ruction technique were employed. The dose-length product was 1492.45 mGy-cm. COMPARISON: Chest CT 01/28/2021 FINDINGS: The lungs demonstrate mild atelectasis. No pleural effusion. The heart size is normal. No p ericardial effusion. There is no pulmonary embolus. There is a small sliding hiatal hernia. There is diffuse hepatic steatosis. There is mild thoracic spondylosis. IMPRESSION: 1. No pulmonary embolus. Sensitivity is moderately decreased by motion artifact. 2. Small sliding hiatal hernia. 3. Diffuse hepatic steatosis. Reviewed, dictated and finalized at location A. ACT AGENT IMPRESSION: 1. No pulmonary embolus. Sensitivity is moderately decreased by motion artifact . 2. Small sliding hiatal hernia. 3. Diffuse hepatic steatosis.
--- NOTE | 2021-06-15 13:35 | ECG_ITS ---
Measurements Intervals [facility] Rate: 58 P: 41 WA: 156 QRS: 48 QRSD: 85 T: 61 QT: 426 QTc: 421 Interpretive Statements SINUS BRADYCARDIA BORDERLINE ST-T WAVE ABNORMALITY- HIGH LATERAL LEADS BASELINE ARTIFACT- I, III, AVR, AVL BORDERLINE ECG Electronically Signed On 06-15-2021 15:23:35 [employer]ANCE MODEL by Manny Royal D.O.
[2021-06-15 13:39] VITALS: BP 150/95; PULSE 60; RESP 17; TEMP 36.8; O2SAT 98
[2021-06-15 14:03] LABS: Basophils Absolute Auto 0.1 K/mm3 (0.0-0.1); Basophils Percent Auto 0.8 % (0.2-1.2); Eosinophils Absolute Auto 0.3 K/mm3 (0-0.3); Eosinophils Percent Auto 3.5 % (0-4.4); Hemoglobin 14.8 g/dL (12.0-15.0); Immature Granulocyte Absolute 0.07 K/mm3 (0.00-0.031); Immature Granulocyte Percent A 0.8 % (0-0.5); Lymphocytes Absolute Auto 3.23 K/mm3 (0.9-3.2); Lymphocytes Percent Auto 37.4 % (18.3-44.2); Mean Corpuscular HGB Conc 34.4 g/dl (32-36); Mean Corpuscular Hemoglobin 32.9 pg (26-34); Mean Corpuscular Volume 95.6 fl (80-100); Mean Platelet Volume 9.5 fl (7.4-10.4); Monocytes Absolute Auto 0.5 K/mm3 (0.1-0.6); Monocytes Percent Auto 5.2 % (2.6-8.5); Neutrophils Absolute Auto 4.5 K/mm3 (1.3-6.7); Neutrophils Percent Auto 52.3 % (45.5-73.1); Platelet Count Result 245 k/mm3 (150-375); Red Cell Distribution Width 13.2 % (11.5-14.5); White Blood Count 8.6 K/mm3 (4.5-10.0)
[2021-06-15 14:13] LABS: INR 0.9; Prothrombin Time 12.3 Seconds (11.1-14.7)
[2021-06-15 14:14] LABS: Alanine Aminotransferase 100 U/L (4-35); Albumin Level 4.6 g/dL (3.5-5.1); Alkaline Phosphatase 91 U/L (38-126); Anion Gap 9 mmol/L (8-16); Aspartate Amino Transferase 47 U/L (14-36); Bilirubin,Total 1.2 mg/dL (0.2-1.3); Blood Urea Nitrogen 16 mg/dL (7-17); Calcium 9.8 mg/dL (8.4-10.2); Carbon Dioxide 26 mmol/L (22-30); Chloride 98 mmol/L (98-107); Estimated CRCL calculation 117 ml/min; Estimated Glomerular Filt Rate > 60; Glucose 156 mg/dL (65-110); Lipase 34 U/L (23-300); Partial Thromboplastin Time 30.5 SECONDS (22.3-36.8); Potassium 3.6 mmol/L (3.4-5.0); Sodium 133 mmol/L (137-145)
[2021-06-15 14:26] LABS: Troponin I < 0.012 ng/mL (0.000-0.034)
[2021-06-15 14:32] LABS: Atypical Lymphocytes Present; Platelet Estimate Adequate (Adequate)
[2021-06-15 17:04] VITALS: BP 136/86; PULSE 60; RESP 16; O2SAT 98
[2021-06-15 17:35] VITALS: BP 124/78; PULSE 59; RESP 20; O2SAT 99
[2021-06-15] MEDS: ASPIRIN 81 MG CHEWABLE TABLET 324 MG PO (17:38)
[2021-06-15 17:40] VITALS: BP 124/78; PULSE 59; RESP 20; O2SAT 99
[2021-06-15 18:05] LABS: D Dimer 0.27 ug/mL (<0.48)
[2021-06-15 18:08] LABS: Troponin I < 0.012 ng/mL (0.000-0.034)
[2021-06-15 18:45] VITALS: BP 126/77; PULSE 64; RESP 20; O2SAT 96
--- NOTE | 2021-06-15 19:08 | PC.NURSE ---
Report given to JESSICA Damon
[2021-06-15] MEDS: ENOXAPARIN 120 MG/0.8 ML SYRINGE 110 MG SUB-Q (19:12)
--- NOTE | 2021-06-15 19:55 | ED.GENADULT ---
HPI - General Adult General Chief complaint: Chest Pain Stated complaint: Chest pressure. Time Seen by Provider: 06/15/21 16:55 Source: patient Mode of arrival: ambulatory Limitations: no limitations History of Present Illness HPI narrative: Patient is a 46-year-old female with chief complaint of intermittent pains to her chest. Patient reports the pain is similar like removed. She reports there is no more noticeable on exertion and with deep breathing. Patient reports that she has concerns that she may have a PE as she has a history of recurrent DVT. Patient reports that she was on Eliquis originally after having a DVT post left leg injury. She reports that she was developed another DVT while on the Eliquis that she was then switched to Coumadin. She reports on Tuesday she was diagnosed with another DVT in the left leg and was switched to Lovenox. Patient denies feelings of shortness of breath. Patient denies any fevers, chills or cough. Patient denies any radiation of pain. Patient states that she called her primary care and they wanted her to be evaluated just to make sure she did not have a pe. Patient denies any worsening pain or swelling in the left leg. Related Data Home Medications Medication Instructions Recorded Confirmed lisinopril 10 mg PO HS 10/21/20 04/18/21 warfarin 06/07/21 Allergies Allergy/AdvReac Type Severity Reaction Status Date / Time Sulfa (Sulfonamide Allergy Rash Verified 06/15/21 17:06 Antibiotics) Review of Systems Review of Systems: CONSTITUTIONAL: Denies fever, chills, or sweats. EYES: Denies visual changes, redness, or discharge. ENT: Denies rhinorrhea, congestion, sore throat, or otalgia. CARDIOVASCULAR: Reports intermittent chest discomfort Denies chest pain, palpitations, or edema. RESPIRATORY: denies cough or dyspnea. GASTROINTESTINAL: Denies abdominal pain, nausea, vomiting, or diarrhea. GENITOURINARY: Denies dysuria or hematuria. SKIN: Denies rash or itching. MUSCULOSKELETAL: Denies back pain, joint pain, or myalgia. NEUROLOGIC: Denies headache, numbness, dizziness, or weakness. PSYCHIATRIC: Denies anxiety or depression. [facility] Past Medical History Medical History (Updated 06/15/21 @ 20:15 by Brenton Lemus PA-C) DVT (deep venous thrombosis) Pulmonary embolus Surgical History Surgical History History of arthroscopy of right knee developed RSD postop - went through pain management Family History Family History Father Diabetes mellitus Sibling Asthma Social History Social History Smoking status: Current every day smoker Additional smoking assessment comments: Patient advised to discontinue smoking given her history of pulmonary embol Alcohol intake: former Substance use: never Gender identity (if verbalized by the patient): Female Spiritual care concerns: No Exam Narrative: GENERAL: Well-appearing, well-nourished, and in no acute distress. Does not appear toxic. HEAD: Normocephalic, atraumatic. EYES: PERRLA and EOMI. ENT: Nares clear, no rhinorrhea or epistaxis. Mucous membranes moist. Oropharynx without tonsillar hypertrophy exudate or other lesions. Bilateral TMs pearly rodriguez nonbulging NECK: Supple. No adenopathy or masses. CHEST: Clear to auscultation. No respiratory distress. No wheezes rales or rhonchi. No tachypnea. Speech clear and appropriate. HEART: Regular rate and rhythm. No murmur heard. Normal peripheral pulses. ABDOMEN: Soft, nontender, nondistended, normal active bowel sounds. EXTREMITIES: Baseline range of motion Left leg is not noticeably larger, erythematous or swollen. SKIN: Warm, dry, no rash. NEURO: No focal deficits. Alert and oriented x3. PSYCH: Normal mood and affect. Course Vital Signs Vital signs: Vital Signs Temperature 98.3 F 06/15/21 13
[2021-06-15 20:30] VITALS: PULSE 81; RESP 16; O2SAT 100
== END 2021-06-15 20:31 | disposition home or self-care (01) ==
PROVIDERS: Emergency Medicine; Physician Assistant; Emergency Provider Emergency Medicine; PCP Internal Medicine
DX: R07.89 Other chest pain (principal); Z86.711 Personal history of pulmonary embolism; Z86.718 Personal history of other venous thrombosis and embolism; Z79.01 Long term (current) use of anticoagulants; F17.200 Nicotine dependence, unspecified, uncomplicated; R00.1 Bradycardia, unspecified; R94.31 Abnormal electrocardiogram [ECG] [EKG]
CPT/HCPCS: 36415; 71046; 71275; 80053; 83690; 84484; 85025; 85380; 85610; 85730; 93005; 96372; 99284; A9270; J1650; Q9967

== ENCOUNTER 2023-01-17 07:04 | Emergency (ER) | payer BC, SELFPAY ==
--- NOTE | ~2023-01-17 | US_ITS ---
EXAMINATION: US venous doppler [facility] DATE: 01/17/2023 08:06 INDICATION: Left lower limb pain TECHNIQUE: Luevano scale images without and with compression and Doppler images of the left lower extrem ity veins were obtained. COMPARISON: 06/07/2021 FINDINGS: The left common femoral vein, profunda femoral vein, femoral vein, popliteal vein, peroneal trunk, posterior tibial veins, and greater saphenous vein are patent. IMPRESSION: 1. Patent left lower extremity veins. No evidence of deep venous thrombosis. Reviewed, dictated and finalized at location A.
[2023-01-17 07:06] VITALS: BP 142/95; PULSE 98; RESP 18; TEMP 37.2; O2SAT 100
--- NOTE | 2023-01-17 07:50 | PC.NURSE ---
Pt taken to US at this time
[2023-01-17 08:26] LABS: Anion Gap 8 mmol/L (8-16); Blood Urea Nitrogen 14 mg/dL (7-17); Calcium 8.5 mg/dL (8.4-10.2); Carbon Dioxide 24 mmol/L (22-30); Chloride 106 mmol/L (98-107); Estimated Glomerular Filt Rate > 60; Glucose 121 mg/dL (65-110); Potassium 4.2 mmol/L (3.4-5.0); Sodium 138 mmol/L (137-145)
[2023-01-17 08:27] LABS: INR 1.1; Prothrombin Time 14.2 Seconds (11.1-14.7)
[2023-01-17 08:28] LABS: Partial Thromboplastin Time 26.5 SECONDS (22.3-36.8)
--- NOTE | 2023-01-17 08:29 | ED.GENADULT ---
HPI - General Adult General Chief complaint: Extremity Problem,Nontraumatic Stated complaint: Left leg pain Time Seen by Provider: 01/17/23 07:05 History of Present Illness HPI narrative: Patient is a 47-year-old female with history of DVT and PE who presents ER due to concerns for possible DVT again. She began having cramping in her calf over the last day. No new swelling. No recent trauma. No chest pain or chest pressure. No shortness of breath or productive cough. Patient has history of recurrent DVT while being on Eliquis and warfarin so she previously had to manage herself with Lovenox. Related Data Home Medications Medication Instructions Recorded Confirmed lisinopril 10 mg tablet 10 mg PO HS 10/21/20 04/18/21 diclofenac sodium 75 mg mg PO 01/17/23 tablet,delayed release omeprazole 40 mg capsule,delayed mg 01/17/23 01/17/23 release risankizumab-rzaa 150 mg/mL 150 mg subcut MONTHLY 01/17/23 01/17/23 subcutaneous pen injector (Skyrizi) Allergies Allergy/AdvReac Type Severity Reaction Status Date / Time Sulfa (Sulfonamide Allergy Rash Verified 06/15/21 17:06 Antibiotics) Review of Systems Review of Systems: All systems reviewed & are unremarkable except as noted in HPI and below Constitutional: Constitutional: Denies chills and Denies fever(s) PMFSH Past Medical History Medical History (Updated 01/17/23 @ 08:30 by Nash Cobian MD) DVT (deep venous thrombosis) Pulmonary embolus Surgical History Surgical History History of arthroscopy of right knee developed RSD postop - went through pain management Family History Family History Father Diabetes mellitus Sibling Asthma Social History Social History Smoking status: Current every day smoker Additional smoking assessment comments: Patient advised to discontinue smoking given her history of pulmonary embol Alcohol intake: former Substance use: never Living arrangements: with family Gender identity (if verbalized by the patient): Female Spiritual care concerns: No Exam Narrative: GENERAL: Well-appearing, well-nourished, and in no acute distress. HEAD: Normocephalic, atraumatic. ENT: Mucous membranes moist. CHEST: Clear to auscultation. No respiratory distress. HEART: Regular rate and rhythm. Normal peripheral pulses. EXTREMITIES: Normal range of motion. No edema. Positive Homans' sign left side SKIN: Warm, dry, psoriasis-like rash to lower extremities. NEURO: Alert and oriented x3. PSYCH: Normal mood and affect. Course Course Emergency Course: Patient resting comfortably. Informed of results. No evidence of DVT or electrolyte disturbance. Patient felt to have muscle cramps and discussed treatment plan. Vital Signs Vital signs: Vital Signs Temperature 98.9 F 01/17/23 07:06 Pulse Rate 98 01/17/23 07:06 Respiratory Rate 18 01/17/23 07:06 Blood Pressure 142/95 H 01/17/23 07:06 Pulse Oximetry 100 01/17/23 07:06 Oxygen Delivery Room Air 01/17/23 07:06 Temperature 98.9 F 01/17/23 07:06 Pulse Rate 98 01/17/23 07:06 Respiratory Rate 18 01/17/23 07:06 Blood Pressure 142/95 H 01/17/23 07:06 Pulse Oximetry 99 01/17/23 08:35 Oxygen Delivery Room Air 01/17/23 07:06 Medical Decision Making Vital Signs Vital Signs: Vital Signs Temperature 98.9 F 01/17/23 07:06 Pulse Rate 98 01/17/23 07:06 Respiratory Rate 18 01/17/23 07:06 Blood Pressure 142/95 H 01/17/23 07:06 Pulse Oximetry 100 01/17/23 07:06 Oxygen Delivery Room Air 01/17/23 07:06 Temperature 98.9 F 01/17/23 07:06 Pulse Rate 98 01/17/23 07:06 Respiratory Rate 18 01/17/23 07:06 Blood Pressure 142/95 H 01/17/23 07:06 Pulse Oximetry 99 01/17/23 08:35 Oxygen Delivery Room Air 01/17/23 07:06
[2023-01-17 08:35] VITALS: O2SAT 99
== END 2023-01-17 08:35 | disposition home or self-care (01) ==
PROVIDERS: Emergency Provider Emergency Medicine; PCP Internal Medicine
DX: M79.662 Pain in left lower leg (principal); Z86.718 Personal history of other venous thrombosis and embolism; Z86.711 Personal history of pulmonary embolism; F17.200 Nicotine dependence, unspecified, uncomplicated; Z79.01 Long term (current) use of anticoagulants
CPT/HCPCS: 36415; 80048; 85610; 85730; 93971; 99284

== ENCOUNTER 2023-06-17 08:00 | Outpatient (CLI) | payer BC, SELFPAY ==
[2023-06-17 12:56] LABS: Hematocrit 45.1 % (37.0-47.0); Hemoglobin 14.9 g/dL (12.0-15.0); Mean Corpuscular Hemoglobin 32.9 pg (26-34); Mean Corpuscular Volume 99.6 fl (80-100); Mean Platelet Volume 10.1 fl (7.4-10.4); Platelet Count Result 218 k/mm3 (150-375); Red Blood Count 4.53 M/mm3 (4.2-5.4); White Blood Count 6.9 K/mm3 (4.5-10.0)
[2023-06-17 13:03] LABS: Alanine Aminotransferase 90 U/L (6-35); Albumin Level 4.3 g/dL (3.5-5.1); Alkaline Phosphatase 89 U/L (38-126); Anion Gap 10 mmol/L (8-16); Aspartate Amino Transferase 94 U/L (14-36); Blood Urea Nitrogen 12 mg/dL (7-17); Calcium 9.2 mg/dL (8.4-10.2); Carbon Dioxide 25 mmol/L (22-30); Chloride 103 mmol/L (98-107); Cholesterol 169 mg/dL (0-200); Estimated Glomerular Filt Rate > 60; Glucose 111 mg/dL (65-110); HDL Direct 42 mg/dL; Potassium 4.1 mmol/L (3.4-5.0); Sodium 138 mmol/L (137-145); Triglycerides 178 mg/dL (<150)
[2023-06-17 13:06] LABS: Glucose 1 Hour PP 50gm Dose 211 mg/dL
[2023-06-17 13:14] LABS: LDL Cholesterol Direct 97 mg/dL
[2023-06-17 13:25] LABS: Hemoglobin A1C 5.8 % (<5.7)
== END 2023-06-17 08:01 | disposition home or self-care (01) ==
PROVIDERS: Nurse Practitioner; PCP Family Medicine; Visit Provider Family Medicine
DX: R74.8 Abnormal levels of other serum enzymes (principal); E66.9 Obesity, unspecified; I10 Essential (primary) hypertension; R73.03 Prediabetes; Z79.899 Other long term (current) drug therapy
CPT/HCPCS: 36415; 80053; 80061; 82947; 83036; 84443; 85027

== ENCOUNTER → 2023-06-24 07:39 | Outpatient (CLI) | payer BC, SELFPAY ==
--- NOTE | ~2023-06-24 | US_ITS ---
US abdomen limited INDICATION: Abnormal lab studies. PROCEDURE: Realtime right upper abdominal ultrasound. COMPARISON: No prior studies for comparison. FINDINGS: The pancreas is normal without focal mass or pancreatic ductal dilation. There is hepatome rita. There is diffusely increased liver echotexture, consistent with fatty infiltration. There is n ormal directional flow in the portal vein. The gallbladder is normal without stones, gallbladder wall thickening or pericholecystic fluid. Comm on bile duct measures 5 mm. IMPRESSION: 1: Hepatomegaly with fatty infiltration of the liver. Reviewed, dictated and finalized at location B. CIPAL ENGINEER
== END ==
PROVIDERS: PCP Family Medicine; Visit Provider Nurse Practitioner
DX: R74.8 Abnormal levels of other serum enzymes (principal); K76.0 Fatty (change of) liver, not elsewhere classified
CPT/HCPCS: 76705

== ENCOUNTER 2023-07-27 09:19 | Outpatient (CLI) | payer BC, SELFPAY ==
[2023-07-27 18:20] LABS: Hematocrit 50.8 % (37.0-47.0); Hemoglobin 15.9 g/dL (12.0-15.0); Mean Corpuscular HGB Conc 31.3 g/dl (32-36); Mean Corpuscular Hemoglobin 31.7 pg (26-34); Mean Corpuscular Volume 101.4 fl (80-100); Mean Platelet Volume 10.2 fl (7.4-10.4); Platelet Count Result 298 k/mm3 (150-375); Red Blood Count 5.01 M/mm3 (4.2-5.4); Red Cell Distribution Width 12.2 % (11.5-14.5); White Blood Count 7.7 K/mm3 (4.5-10.0)
[2023-07-27 19:16] LABS: Alanine Aminotransferase 100 U/L (6-35); Albumin Level 4.4 g/dL (3.5-5.1); Alkaline Phosphatase 89 U/L (38-126); Amylase 69 U/L (30-110); Anion Gap 10 mmol/L (8-16); Aspartate Amino Transferase 101 U/L (14-36); Bilirubin,Total 1.6 mg/dL (0.2-1.3); Blood Urea Nitrogen 17 mg/dL (7-17); Calcium 9.4 mg/dL (8.4-10.2); Carbon Dioxide 29 mmol/L (22-30); Chloride 101 mmol/L (98-107); Estimated Glomerular Filt Rate > 60; Glucose 99 mg/dL (65-110); Lipase 69 U/L (23-300); Potassium 4.2 mmol/L (3.4-5.0); Sodium 140 mmol/L (137-145)
== END 2023-07-27 09:20 | disposition home or self-care (01) ==
LOC: ANHGOSHLAB 09:21
PROVIDERS: Visit Provider Family Medicine
DX: I10 Essential (primary) hypertension (principal); R10.11 Right upper quadrant pain; R73.03 Prediabetes; Z79.899 Other long term (current) drug therapy; R30.0 Dysuria
CPT/HCPCS: 36415; 80053; 82150; 83690; 84443; 85027; 87077; 87086; 87186

== ENCOUNTER 2023-07-27 09:33 | Outpatient (CLI) | payer BC, SELFPAY ==
--- NOTE | ~2023-07-27 | US_ITS ---
Limited Abdominal Sonogram: Real-time sonographic imaging of the right upper quadrant was performed. Clinical History: Right upper quadrant pain Findings: The liver appears echogenic, with no evidence of mass lesion or bile duct dilatation. It m easures 19 cm in length. Main portal vein demonstrates normal direction of flow. The gallbladder is w ell distended, and appears normal with no evidence of gallstone or wall thickening. The common bile d uct measures 6 mm. The visualized pancreas, aorta, and IVC are unremarkable. Impression: Diffuse fatty infiltration of liver with associated hepatomegaly. Reviewed, dictated and finalized at location M. METRY REGISTERED NURSE Impression: Diffuse fatty infiltration of liver with associated hepatomegaly.
== END 2023-07-27 09:34 ==
LOC: GOSHIMG 09:34
PROVIDERS: PCP Family Medicine; Visit Provider Family Medicine
DX: R10.11 Right upper quadrant pain (principal)
CPT/HCPCS: 76705

== ENCOUNTER 2023-08-01 08:52 | Outpatient (CLI) | payer BC, SELFPAY ==
--- NOTE | ~2023-08-01 | CT_ITS ---
EXAMINATION: CT abdomen wo con DATE: 08/01/2023 09:04 INDICATION: Right upper quadrant abdominal pain for one week. Nausea. TECHNIQUE: Computed tomography (CT) of the abdomen was performed without intravenous contrast. Automa lizzie exposure control and iterative reconstruction technique were employed. Exam dose: 765.77 mGy-cm total exam DLP. COMPARISON: 07/27/2023 right upper quadrant abdominal ultrasound examination FINDINGS: Mild atelectasis at the lung bases, primarily involving the right lower lobe. Normal heart size. No pericardial or pleural effusion. There is diffuse hepatic steatosis. No hepatic space-occupying mass lesion is evident. Normal splenic size. No pancreatic mass lesion, calcification or ductal dilatation. The gallbladder appears unremarkable. No bile duct dilatation. Normal morphology of the adrenal glands. No renal mass lesion, calculus or hydronephrosis. There is atherosclerotic calcification but normal caliber of the abdominal aorta and common iliac art eries. No intraperitoneal or retroperitoneal mass lesion or adenopathy or ascites. Small sliding hiatal hernia. Normal appendix. No bowel obstruction or bowel wall thickening, pneumatosis or intraperitoneal free a ir is detected. Small fat-containing umbilical hernia. IMPRESSION: Diffuse hepatic steatosis Small sliding hiatal hernia Normal appendix Reviewed, dictated and finalized at Location A. Reviewed, dictated and finalized at location B. LE SCM CONSULTANT
== END 2023-08-01 08:53 ==
PROVIDERS: PCP Family Medicine; Visit Provider Family Medicine
DX: R10.11 Right upper quadrant pain (principal); K76.0 Fatty (change of) liver, not elsewhere classified; K44.9 Diaphragmatic hernia without obstruction or gangrene
CPT/HCPCS: 74150

== ENCOUNTER 2023-08-11 16:10 | Outpatient (CLI) | payer BC, SELFPAY ==
[2023-08-11 19:24] LABS: Alanine Aminotransferase 94 U/L (6-35); Albumin Level 4.4 g/dL (3.5-5.1); Alkaline Phosphatase 106 U/L (38-126); Aspartate Amino Transferase 93 U/L (14-36); Bilirubin,Total 0.9 mg/dL (0.2-1.3)
[2023-08-11 19:30] LABS: INR 0.9; Prothrombin Time 12.9 Seconds (11.1-14.7)
[2023-08-11 19:56] LABS: Hepatitis B Surface Antigen Negative (Negative)
[2023-08-11 20:02] LABS: HAV RESULT Negative (Negative); Hepatitis B Core IgM Result Negative (Negative)
[2023-08-11 20:13] LABS: Hepatitis C Virus Antibody Negative (Negative)
[2023-08-11 21:02] LABS: Iron 88 ug/dL (37-170)
[2023-08-11 21:11] LABS: Percent Iron Saturation 26 % (20-50)
[2023-08-14 21:29] LABS: LKM 1 Antibody <=20.0 U (<=20.0)
[2023-08-14 22:09] LABS: Actin Antibody (IgG) <20 U (<20)
[2023-08-15 12:38] LABS: Mitochondrial (M2) Ab (IgG) <=20.0 U (<=20.0)
[2023-08-15 13:18] LABS: Hepatitis A Antibody Total Nonreactive (Nonreactive)
[2023-08-16 20:30] LABS: GGT 79 U/L (3-55)
[2023-08-16 20:42] LABS: Ceruloplasmin 28 mg/dL (18-53)
[2023-08-23 12:52] LABS: ALT 75 U/L (6-29); Alpha Fetoprotein Tumor Marker 4.7 ng/mL (<6.1); Alpha-2-Macroglobulin 114 mg/dL (106-279); Apolipoprotein A1 153 mg/dL (101-198); Fibrosis Score 0.09; Fibrosis Stage F0; GGT 75 U/L (3-55); Haptoglobin 158 mg/dL (43-212); Necroinflammat Act Grade A1-A2; Total Bilirubin 0.6 mg/dL (0.2-1.2)
== END 2023-08-11 16:11 | disposition home or self-care (01) ==
LOC: ANHGOSHLAB 16:12
PROVIDERS: PCP Family Medicine; Visit Provider Nurse Practitioner
DX: R10.11 Right upper quadrant pain (principal); R74.8 Abnormal levels of other serum enzymes; K74.60 Unspecified cirrhosis of liver; K76.0 Fatty (change of) liver, not elsewhere classified; E88.819 Insulin resistance, unspecified
CPT/HCPCS: 36415; 80074; 80076; 81596; 82104; 82105; 82390; 82728; 82977; 83520; 83540; 83550; 85610; 86038; 86364; 86376; 86708

== ENCOUNTER 2023-08-18 08:42 | Outpatient (CLI) | payer BC, SELFPAY ==
--- NOTE | ~2023-08-18 | NM_ITS ---
EXAMINATION: NM hepatobiliary wo pharm DATE: 08/18/2023 11:05 INDICATION: Right upper quadrant abdominal pain. COMPARISON: CT abdomen 08/01/23 TECHNIQUE: 5.0 mCi Tc-99m mebrofenin (Choletec) was administered intravenously. Scintigraphic images of the abdomen were obtained for one hour. Then, the patient drank 8 oz Ensure, and imaging was cont inued for 60 minutes. FINDINGS: There is normal clearance of radiotracer from the blood pool. There is homogeneous tracer u ptake by the liver. Activity progresses to the bowel and gallbladder. Gallbladder ejection fraction (GBEF) was 41%. Note that with this technique, normal GBEF >= 33%. IMPRESSION: 1. Normal hepatobiliary scintigraphy. Reviewed, dictated and finalized at location A. Y CHECKER
== END 2023-08-18 08:43 | disposition home or self-care (01) ==
PROVIDERS: PCP Family Medicine; Visit Provider Nurse Practitioner
DX: R10.11 Right upper quadrant pain (principal)
CPT/HCPCS: 78226; A9537

== ENCOUNTER 2023-08-22 00:56 | Day surgery (SDC) | payer BC, SELFPAY ==
[2023-08-12 14:39] VITALS: BMI 40.2
--- NOTE | 2023-08-19 09:29 | SUR.PREOP ---
Patient called regarding upcoming procedure. Reviewed preop instructions, appointment times, and procedure prep.
[2023-08-22 11:14] VITALS: BP 150/95; PULSE 92; RESP 20; TEMP 36.4; O2SAT 100; BMI 39.4
--- NOTE | 2023-08-22 11:25 | WPDANESEPPF ---
Anes - Initial Pre Proc Eval Procedure: Operation Date: 08/22/23 12:30 Proposed Procedures p Esophagogastroduodenoscopy & Colonoscopy - Winston Srivastava MD Date/Time: 08/22/23 11:25 Surgeon: Winston Srivastava MD Pre Op Diagnosis: Right upper quadrant pain abdominal pain, GERD Patient Data Age: 48 Gender: F Height: 1.8 m Weight: 128.4 kg Last Vital Signs Temp 97.5 F L 08/22/23 11:14 Pulse 92 08/22/23 11:14 Resp 20 08/22/23 11:14 BP 150/95 H 08/22/23 11:14 Pulse Ox 100 08/22/23 11:14 O2 Del Method Room Air 08/22/23 11:14 Allergies Allergy/AdvReac Type Severity Reaction Status Date / Time Sulfa (Sulfonamide Allergy Rash Verified 08/22/23 11:11 Antibiotics) Home Medications Medication Instructions Recorded Confirmed Type risankizumab-rzaa 150 mg/mL See Rx Instructions .Route .COMPLEX 01/17/23 08/12/23 History subcutaneous pen injector (Lewis) lisinopril 10 mg tablet 10 mg PO HS #90 tabs 06/20/23 08/12/23 Rx blood sugar diagnostic (Accu-Chek #200 ea 07/01/23 08/12/23 Rx Guide test strips) blood-glucose meter (Accu-Chek #1 ea 07/01/23 08/12/23 Rx Guide Glucose Meter) metformin 500 mg tablet,extended 500 mg PO DAILY #180 tabs 07/01/23 08/12/23 Rx release 24 hr cholecalciferol (vitamin D3) 1,250 1,250 mcg PO WEEKLY #12 caps 07/02/23 08/12/23 Rx mcg (50,000 unit) capsule omeprazole 40 mg capsule,delayed 40 mg PO DAILY #30 caps 08/11/23 08/12/23 Rx release Patient hx anesthesia problems: none Family hx anesthesia problems: none Results Review: All pre-operative results and documents have been reviewed as part of the pre-operative evaluation. [facility] Past Medical History Medical History (Updated 08/11/23 @ 16:10 by Zoraida Dunbar, MARCO) DVT (deep venous thrombosis) GERD (gastroesophageal reflux disease) Psoriatic arthritis Pulmonary embolus Surgical History Surgical History H/O knee surgery H/O: hysterectomy History of ankle surgery History of arthroscopy of right knee developed RSD postop - went through pain management History of cardiac radiofrequency ablation (RFA) Family History Family History Father Diabetes mellitus Sibling Asthma Mother Hypertension Grandparent Cerebrovascular accident Pancreas cancer Social History Social History Smoking packs per day: 0.5 Smoking cigarettes per day: 10.0 Years smoked: 25 Smoking pack-years: 12.50 Smoking status: Former smoker Tobacco type: cigarettes Additional smoking assessment comments: Patient advised to discontinue smoking given her history of pulmonary embol Alcohol intake: never Substance use: never Substance use type: does not use Lack of Transportation: No Lack of Food: Never True Current Housing: I Have Housing Concerned About Future Housing: No Difficulty Paying Gas/Electric Bills: No Difficulty Paying for Meds: No Currently Unemployed: No Education: High School Diploma/GED Difficulty w/ Childcare or Family Care: No Living arrangements: with family Gender identity (if verbalized by the patient): Female Spiritual care concerns: No Anes - Eval Final PreProcedure Day of Procedure 08/22/23 11:25 Patient weight: morbidly obese Heart: regular rate and rhythm Lungs: clear to auscultation Airway: Mallampati scale class II Neurological: alert and oriented Last oral intake: >/= 8 hours ASA classification: III Emergent: no Anesthetic plan: proceed Anesthesia type and monitoring: general GIVS and standard monitoring Results Review: All pre-operative results and documents have been reviewed as part of the pre-operative evaluation. Informed Consent: The patient's anesthetic plan and its attendant risks and benefits were discussed with the
[2023-08-22] MEDS: LACTATED RINGERS 1,000 ML 150 ML IV CONT (11:42)
--- NOTE | 2023-08-22 11:48 | WPDHPUPDATE1 ---
History and Physical Update Update Date/Time: 08/22/23 11:48 History and Physical has been reviewed, including an updated exam of the patient. There are NO changes in the patient's condition. Risks, benefits, and alternatives have been discussed and questions answered. Patient agrees to proceed with procedure.
--- NOTE | 2023-08-22 11:49 | SUR.OPER ---
EGD: START-11:45 END-3 COLON: [id number] END-1207
[2023-08-22 11:53] LABS: Glucose Point of Care 108 mg/dl (65-105)
[2023-08-22 12:08] VITALS: BP 101/58; PULSE 84; RESP 20; O2SAT 97
[2023-08-22 12:18] VITALS: BP 106/51; PULSE 68; RESP 19; O2SAT 99
[2023-08-22 12:28] VITALS: BP 107/65; PULSE 65; RESP 19; O2SAT 100
== END 2023-08-22 12:48 | disposition home or self-care (01) ==
PROVIDERS: PCP Family Medicine; Visit Provider Internal Medicine Gastroenterology
PROC: 0DJ08ZZ Inspection of Upper Intestinal Tract, Via Natural or Artificial Opening Endoscopic (ICD-10-PCS; CPT 43235; principal; 2023-08-22 12:30)
DX: K21.9 Gastro-esophageal reflux disease without esophagitis (principal); K64.8 Other hemorrhoids; K57.30 Diverticulosis of large intestine without perforation or abscess without bleeding; E66.01 Morbid (severe) obesity due to excess calories; Z68.39 Body mass index [BMI] 39.0-39.9, adult; Z79.85 Long-term (current) use of injectable non-insulin antidiabetic drugs; Z79.84 Long term (current) use of oral hypoglycemic drugs; Z98.890 Other specified postprocedural states; Z87.891 Personal history of nicotine dependence; Z86.718 Personal history of other venous thrombosis and embolism; Z86.711 Personal history of pulmonary embolism; Z82.49 Family history of ischemic heart disease and other diseases of the circulatory system; Z80.0 Family history of malignant neoplasm of digestive organs
CPT/HCPCS: 43239; 45380; 82948; 87081; 88305; J2704; J7120

== ENCOUNTER 2023-11-09 14:27 | Outpatient (CLI) | payer BC, SELFPAY ==
[2023-11-09 20:10] LABS: Alanine Aminotransferase 55 U/L (6-35); Albumin Level 4.2 g/dL (3.5-5.1); Alkaline Phosphatase 70 U/L (38-126); Anion Gap 7 mmol/L (4-12); Aspartate Amino Transferase 62 U/L (14-36); Bilirubin,Total 1.3 mg/dL (0.2-1.3); Blood Urea Nitrogen 10 mg/dL (7-17); Calcium 9.2 mg/dL (8.4-10.2); Carbon Dioxide 28 mmol/L (22-30); Chloride 104 mmol/L (98-107); Estimated Glomerular Filt Rate > 60; Glucose 91 mg/dL (65-110); Potassium 4.2 mmol/L (3.4-5.0); Sodium 139 mmol/L (137-145)
[2023-11-09 20:41] LABS: Vitamin D 25 Hydroxy 54.3 ng/mL
== END 2023-11-09 14:28 | disposition home or self-care (01) ==
LOC: ANHGOSHLAB 14:29
PROVIDERS: PCP Family Medicine; Visit Provider Internal Medicine
DX: R73.03 Prediabetes (principal)
CPT/HCPCS: 36415; 80053; 82306

== ENCOUNTER 2023-12-30 13:04 | Outpatient (CLI) | payer BC, SELFPAY ==
--- NOTE | ~2023-12-30 | US_ITS ---
EXAMINATION:US venous doppler LE BI INDICATION:Bilateral leg pain TECHNIQUE: Multiple grayscale, color flow and Doppler images of the right and left lower extremity de ep venous systems were obtained and reviewed. COMPARISON:01/17/2023 FINDINGS: The common femoral, superficial femoral and popliteal veins demonstrate normal respiratory variation, augmentation and compressibility. Color flow is also seen within the posterior tibial, pe roneal, greater saphenous and profunda veins. IMPRESSION: 1: No lower extremity deep venous thrombosis. Reviewed, dictated and finalized at location B.
== END 2023-12-30 13:05 ==
LOC: GOSHIMG 13:05
PROVIDERS: PCP Family Medicine; Visit Provider Family Medicine
DX: M79.604 Pain in right leg (principal); M79.605 Pain in left leg
CPT/HCPCS: 93970

== ENCOUNTER 2024-01-31 12:04 | Emergency (ER) | payer BC, SELFPAY ==
[2024-01-31] VITALS (12 sets, daily range): BP systolic 120–141; BP diastolic 81–100; PULSE 81–113; RESP 18–28; TEMP 36.5; O2SAT 93–100
--- NOTE | ~2024-01-31 | XR_ITS ---
XR chest 2V Ordering provider: Nitesh Garay MD History: 48 years Female with . palpitations/DIZZINESS/OCCASIONAL SOB . Comparison: June 15, 2021 FINDINGS: MEDIASTINUM: The cardiac silhouette is not enlarged. LUNGS: Right basilar atelectasis versus pneumonia with pleural effusion. No pneumothorax. OTHER: No free air under the diaphragm. IMPRESSION: Right basilar atelectasis versus pneumonia with pleural effusion. Reviewed, dictated and finalized at location A.
--- NOTE | 2024-01-31 12:08 | ECG_ITS ---
Test Date: 2024-01-31 12:12:48 Measurements Intervals [place] Rate: 108 P: 45 OH: 153 QRS: 47 QRSD: 80 T: 39 QT: 330 QTc: 443 Interpretive Statements SINUS TACHYCARDIA POSSIBLE LEFT ATRIAL ENLARGEMENT LOW QRS VOLTAGE IN PRECORDIAL LEADS NONSPECIFIC ST-T WAVE ABNORMALITY- ANTEROLAT/INF LEADS BASELINE WANDER- V2 ABNORMAL ECG No previous ECG available for comparison Electronically Signed On 01-31-2024 12:39:35 CDT by Manny Royal D.O.
[2024-01-31 12:43] LABS: Basophils Absolute Auto 0.1 K/mm3 (0.0-0.1); Basophils Percent Auto 0.6 % (0.2-1.2); Eosinophils Absolute Auto 0.2 K/mm3 (0-0.3); Eosinophils Percent Auto 2.6 % (0-4.4); Hemoglobin 17.4 g/dL (12.0-15.0); Immature Granulocyte Absolute 0.04 K/mm3 (0.00-0.031); Immature Granulocyte Percent A 0.5 % (0-0.5); Lymphocytes Absolute Auto 3.22 K/mm3 (0.9-3.2); Lymphocytes Percent Auto 36.8 % (18.3-44.2); Mean Corpuscular HGB Conc 34.1 g/dl (32-36); Mean Corpuscular Hemoglobin 32.7 pg (26-34); Mean Corpuscular Volume 95.9 fl (80-100); Mean Platelet Volume 9.9 fl (7.4-10.4); Monocytes Absolute Auto 0.7 K/mm3 (0.1-0.6); Neutrophils Absolute Auto 4.5 K/mm3 (1.3-6.7); Neutrophils Percent Auto 51.5 % (45.5-73.1); Platelet Count Result 249 k/mm3 (150-375); Red Blood Count 5.32 M/mm3 (4.2-5.4); Red Cell Distribution Width 12.5 % (11.5-14.5); White Blood Count 8.8 K/mm3 (4.5-10.0)
[2024-01-31 12:52] LABS: INR 1.1; Partial Thromboplastin Time 29.1 Seconds (22.3-36.8); Prothrombin Time 14.3 Seconds (11.1-14.7)
--- NOTE | 2024-01-31 12:56 | ED.ARRPALP ---
HPI - Arrhythmia/Palpitations General Chief Complaint: Arrhythmia/Palpitations Stated Complaint: heart palpitations, weak, dizzy Time Seen by Provider: 01/31/24 12:26 History of Present Illness HPI narrative: Patient is a 48-year-old female presents ER with feeling body aches and weakness. Recently diagnosed with draining cystic abscess. She has been started on antibiotics. She has had a few loose stools. She was referred here by her PCP. No LOC. She her abscesses were evaluated by General surgery today and do not require an additional drainage. Patient has history of AFib and felt palpitations. Related Data Home Medications Medication Instructions Recorded Confirmed cholecalciferol (vitamin D3) 1,250 1,250 mcg PO WEEKLY 11/30/23 12/28/23 mcg (50,000 unit) capsule Allergies Allergy/AdvReac Type Severity Reaction Status Date / Time Sulfa (Sulfonamide Allergy Rash Verified 01/31/24 12:08 Antibiotics) Review of Systems Review of Systems: All systems reviewed & are unremarkable except as noted in HPI and below Constitutional: Constitutional: Denies chills, Reports fatigue, Denies fever(s) and Reports weakness ENT: Reports system reviewed and no additional complaints, except as documented Cardiovascular: Cardiovascular: Denies chest pain, Reports rapid heart rate and Denies radiating jaw, neck or arm pain Respiratory: Respiratory: Reports no additional respiratory complaints Gastrointestinal: Gastrointestinal: Reports no additional gastrointestinal complaints PMFSH Past Medical History Medical History DVT (deep venous thrombosis) GERD (gastroesophageal reflux disease) Hypertension Psoriatic arthritis Pulmonary embolus Surgical History Surgical History H/O knee surgery H/O: hysterectomy History of ankle surgery History of arthroscopy of right knee developed RSD postop - went through pain management History of cardiac radiofrequency ablation (RFA) Family History Family History Father Diabetes mellitus Sibling Asthma Mother Hypertension Grandparent Cerebrovascular accident Pancreas cancer Social History Social History Social History: Caffeine-coffee Smoking packs per day: 0.5 Smoking cigarettes per day: 10.0 Years smoked: 25 Smoking pack-years: 12.50 Smoking status: Former smoker Tobacco type: cigarettes Smoking end date: 07/18/18 Additional smoking assessment comments: Patient advised to discontinue smoking given her history of pulmonary embol Alcohol intake: never Substance use: never Substance use type: does not use Do You Feel Safe in your Home?: Yes Lack of Transportation: No Lack of Food: Never True Current Housing: I Have Housing Concerned About Future Housing: No Difficulty Paying Gas/Electric Bills: No Difficulty Paying for Meds: No Currently Unemployed: No Education: High School Diploma/GED Difficulty w/ Childcare or Family Care: No Living arrangements: with family Gender identity (if verbalized by the patient): Female Spiritual care concerns: No Exam Narrative: GENERAL: Well-appearing, well-nourished, and in no acute distress. HEAD: Normocephalic, atraumatic. ENT: Mucous membranes moist. CHEST: Clear to auscultation. No respiratory distress. HEART: Tachycardic and regular. Normal peripheral pulses. ABDOMEN: Soft, nontender, nondistended. EXTREMITIES: Normal range of motion. No edema. SKIN: Warm, dry, no rash. NEURO: Alert and oriented x3. PSYCH: Normal mood and affect. Course Course Emergency Course: Patient with evidence of dehydration given that she is heme concentrated and her BUN is elevated. Patient received 1 L IV fluid. Tachycardia improved. Discharge home. Vital Signs Lila
[2024-01-31 12:58] LABS: Alanine Aminotransferase 60 U/L (6-35); Albumin Level 4.9 g/dL (3.5-5.1); Alkaline Phosphatase 93 U/L (38-126); Anion Gap 12 mmol/L (4-12); Aspartate Amino Transferase 42 U/L (14-36); Blood Urea Nitrogen 18 mg/dL (7-17); Calcium 9.1 mg/dL (8.4-10.2); Carbon Dioxide 26 mmol/L (22-30); Chloride 101 mmol/L (98-107); Estimated CRCL calculation 90 ml/min; Estimated Glomerular Filt Rate > 60; Glucose 102 mg/dL (65-110); Lipase 56 U/L (23-300); Potassium 3.9 mmol/L (3.4-5.0); Sodium 139 mmol/L (137-145)
[2024-01-31 13:09] LABS: Troponin I < 0.012 ng/mL (0.000-0.034)
[2024-01-31] MEDS: SODIUM CHLORIDE 0.9% IV 1,000 ML 999 ML IV CONT (13:45)
== END 2024-01-31 14:25 | disposition home or self-care (01) ==
PROVIDERS: Emergency Medicine; Emergency Provider Emergency Medicine; PCP Family Medicine
DX: E86.0 Dehydration (principal); Z86.718 Personal history of other venous thrombosis and embolism; K21.9 Gastro-esophageal reflux disease without esophagitis; I10 Essential (primary) hypertension; Z86.711 Personal history of pulmonary embolism
CPT/HCPCS: 36415; 71046; 80053; 83690; 84484; 85025; 85610; 85730; 93005; 96360; 99284; J7030

== ENCOUNTER 2024-08-25 10:03 | Emergency (ER) | payer BC, SELFPAY ==
[2024-08-25] VITALS (14 sets, daily range): BP systolic 124–158; BP diastolic 91–100; PULSE 81; RESP 20; TEMP 36.5; O2SAT 97–100
--- NOTE | ~2024-08-25 | CT_ITS ---
EXAMINATION: CT brain wo con DATE: 08/25/2024 11:27 INDICATION: Migraine headache. TECHNIQUE: Computed tomography (CT) of the head was performed without intravenous contrast. The mA wa s adjusted according to patient size. Iterative reconstruction technique was employed. The dose-lengt h product was 681.00 mGy-cm. COMPARISON: None FINDINGS: There is no intracranial hemorrhage, acute infarction, or abnormal intracranial mass lesion . The ventricles are normal in size. There is mild mucosal thickening in the paranasal sinuses. The m astoid air cells are normal. The orbits are normal. IMPRESSION: 1. Mild nonspecific cerebral white matter disease, which likely represents chronic small vessel ische michael disease. Reviewed, dictated and finalized at location A. RETE BLOCK MOLDER IMPRESSION: 1. Mild nonspecific cerebral white matter disease, which likely represents boarding mother myles small vessel ischemic disease.
--- OUTSIDE RECORDS SUMMARY | 2024-08-25 10:05 | XMS_ITS | Patient Health Record ---
Author Organization [facility] Address [address] [place] [address] Reason For Referral No Information Immunizations Vaccine Route Administration Date Status Comme nts FLU VAC NO PRSV 4VAL 6 mo+ Unknown 04/25/2024 Administered Oly, RN, Adriana Alvarez 05/22/2024 12:46:14 PM MAKE UP ARRANGER >Record of flulaval administration received from [facility] pharmacy, [place]. Plan Of Treatment Pending Test Test Name Order Date At Home SARS-CoV-2, MARY 03/22/2022 Insurance Providers Payer Name Payer Address Payer Phone Subscriber Number Group Number Insured Name Patient Relationship to Insured Coverage Start Date Coverage End Date [employer] [address] [place] [address] [phone] [id number] Mery Patel Self - patient is the insured
--- OUTSIDE RECORDS SUMMARY | 2024-08-25 10:06 | XMS_ITS | Continuity of Care Document ---
Author Organization [facility] Address [address] [place] [address] Phone Care Team Providers Care Aircraft Ordnance Systems Mechanic Name Role Phone Servando Taveras MD Unavailable Unavailable Procedures Procedure Date Office/outpatient visit,[facility] 2008 Postop followup visit Postop followup visit Manipulate knee joint, gen'l anesth Drain/inject major jointor bursa 2008 [place] [facility] [place] exam of knee, 3 views Advance Directives Directive Yes / No Effective Date File Name No Information Encounters Encounter Description Practice Location Reason(s) For Visit Diagnoses Date Provider Providers Copied on Encounter Office/outpat ient visit,[facility], [facility], [address], [id number], [place] [phone] [facility] ([employer]) No Information 9 Nitin Al. [address] [facility], [address], [id number] , [place]. tel: [phone] [employer] ([employer]), [address], [id number], [place] [phone] [employer] ([employer]) No Information 0200 9 Nitin Al. [address] [facility], [address], [id number] , [place]. tel: [phone] [facility], [address] [facility] [address], [place], [id number], tel:[phone] [facility] No Information 0 9 Nitin Al. [address] [facility], [address], [place], [place], [id number] , [place]. tel: [phone] [facility], [address] [facility] [address], [place], [place], [id number], [place] tel:[phone] [facility] No Information 9 Nitin Al. [address] [facility], [facility] [address], [place], [place], [id number] , [place]. tel: [phone] Office/outpat ient visit,[facility], [address], [id number], [phone] [facility] No Information 9 Nitin Al. [address] [facility], [facility], [place], [place], [id number] , [place]. tel: [phone] Family History Family Member Type Diagnosis Age At Onset No Information Payers Payer name Insurance type Covered democrat ID Rosie loo(s) [facility] [id number] Social History Type Description Quantity Date Captured [...]
--- OUTSIDE RECORDS SUMMARY | 2024-08-25 10:06 | XMS_ITS | Clinical Summary ---
Author Organization [facility] Address [address] [place] [address] Care Team Providers Care Process Engineering Manager Name Role Phone Unavailable Primary Care Provider Unavailabl e Social History Tobacco Use Types Packs/Day Years Used Date Smoking Tobacco: Never Assessed Comments Unknown Sex and Gender Information Value Date Recorded Sex Assigned at Not on file Legal Sex Female 7:05 PM CDT Gender Identity Not on file Sexual Orientation Not on file Plan of Treatment Health Maintenance Due Date Last Done Comments Cervical Cancer Screening Pa p Smear (Age 30 to 64) Every 3 Years 1974 Colorectal Cancer Screening Colonoscopy (10 Years) 1974 Annual Physical 1977 Hepatitis C 1992 DTaP, Tdap and Td Vaccines ( 1 - Tdap) 1993 Hepatitis B Vaccines (1 of 3 - 19+ 3-dose series) 1993 Cervical Cancer Screening Pa p with HPV Testing (Age 30 to 64) Every 5 Years 2004 Cervical Cancer Screening with HPV 2004 Mammogram Screening 2014 COVID-19 Vaccine (2023-2 5 season) 2024 Zoster Vaccines (1 of 2) 2024 Influenza Adult (#1) 2024 Meningococcal B Vaccine Aged Out No l onger eligible based on patient's age to complete this topic Meningococcal Vaccine Aged Out No francisco dodie eligible based on patient's age to complete this topic Pneumococcal Vaccine: Pediat rics (0 to 5 Years) and At-Risk Patients (6 to 64 Years) Aged Out No longer eligible b ased on patient's age to complete this topic RSV Immunizations Under 20 Months Aged Out No longer eligible based on patient's age to complete this topic
--- OUTSIDE RECORDS SUMMARY | 2024-08-25 10:06 | XMS_ITS | CONTINUITY OF CARE DOCUMENT ---
Author Name margaritasharon margaritasharon Address Unknown Organization [facility] Address [address] [address] [place] [address] Phone [phone] Care Team Providers Care Hay Sorter Name Role Phone Kenyetta ELIAS, Mirza Unavailable [phone] AMY ELIAS, APOLINAR Abdi Unavailable Jose ZHOU MD, WANDA Templeton Unavailable [phone] PROBLEMS Condition Status Date Provider Notes VENTRICULAR ARRHYTHMIA active ? Mirza espinoza MD OBESITY active ? Mirza Kumari MD DVT active Mirza Kumari MD LEG PAIN active Mirza Kumari MD SHORTNESS OF BREATH active Mirza avila MD CHEST PAIN-TYPE TO BE DETERMINED active Nkechi Kumari MD Intermittent palpitations active Jonathan Rayo x ENCOUNTERS Date Type Provider Location Encounter Diag nosis - In-person encounter Office Visit Mirza Kumari MD [place] [facility] Intermittent palpitations - In-person encounter Office Visit Mirza Kumari MD [place] [facility] SHORTNESS OF BREATHCHEST PAIN-TYPE TO BE DETERMINED - In-person encounter Office Visit Mirza Kumari MD [place] [facility] - In-person encounter Office Visit Mirza Kumari MD [place] [facility] LEG PAIN - In-person encounter Office Visit Mirza Kumari MD [place] [facility] VENTRICULAR ARRHYTHMIAOBESITYDVT VITAL SIGNS Date Observation Value Provider Body Mass Index (Ratio) 31.13 kg/m2 Kd Alcantara blood pressure, cuff size regular Cy sergei Virgen blood pressure, diastolic 70 mm[Hg] Cy sergei Virgen blood pressure, systolic 122 mm[Hg] Maria T Virgen oxygen saturation, oximetry 98 % Torri Virgen respiratory rate E&M 16 /min Torri Virgen pulse rate 92 /min Torri abdi weight E&M 217 [lb_av] Torri abdi height E&M 70 [in_i] Torri abdi Body Mass Index (Ratio) 34.13 kg/m2 Travis jose armando Barraza blood pressure, diastolic 72 mm[Hg] Han leonardi Madi blood pressure, systolic 132 mm[Hg] Jairo Barraza pulse rate 91 /min Мария parkerer oxygen saturation, oximetry 98 % Мария Barraza respiratory rate E&M 14 /min Мария kulkarni weight E&M 237 [lb_av] Мария Encarnacion lder blood pressure, diastolic 90 mm[Hg] Mason Vanegas RN blood pressure, systolic 127 mm[Hg] Luis Vanegas RN pulse rate 95 /min Luis Vanegas RN oxygen saturation, oximetry 98 % Luis Vanegas RN respiratory rate E&M 18 /min Luis burger RN Body Mass Index (Ratio) 34.24 kg/m2 Luis Vanegas RN weight E&M 237.8 [lb_av] Luis Vanegas RN Body Mass Index (Ratio) 34.22 kg/m2 Ron Dubon blood pressure, diastolic, left arm 93 mm [Hg] Mario Dubon blood pressure, systolic, left arm 137 mm [Hg] Mario Manacop blood pressure, diastolic, right arm 93 m m[Hg] Mario Manacop blood pressure, systolic, right arm 138 m m[Hg] Mario Manacop blood pressure, diastolic 93 mm[Hg] Brigida seph Manacop blood pressure, systolic 138 mm[Hg] Dung eph Manacop pulse rate 77 /min Mario Manacop oxygen saturation, oximetry 98 % Mario Manacop respiratory rate E&M 16 /min Mario Manacop weight E&M 237.6 [lb_av] Mario Delgadoacopablo blood pressure, diastolic 99 mm[Hg] Mason Vanegas RN blood pressure, systolic 138 mm[Hg] Luis Vanegas RN pulse rate 43 /min Luis Vanegas RN oxygen saturation, oximetry 98 % Luis Vanegas RN respiratory rate E&M 17 /min Luis burger RN Body Mass Index (Ratio) 33.12 kg/m2 Luis Vanegas RN weight E&M 230 [lb_av] Luis Vanegas RN height E&M 70 [in_i] Luis Vanegas RN ALLERGIES No Known Drug Allergies RESULTS Date Observation Value Provider Reference Range Interpretation Location 5 prothrombin time (patient) 12.4 s Chepe Mishra 5 international normalized ratio (INR) 1.2 Chepe Mishra Normal 1 coagulation managed by Luis Vanegas RN 1 prothrombin time (patient) 19.3 s Luis Vanegas RN 1 international normalized ratio (INR) 1.9 Luis Vanegas RN Normal 5 coagulation managed by Luis Vanegas RN 5 prothrombin time (patient) 21.9 s Luis aVnegas RN 5 international normalized ratio (INR) 2.2 Luis Vanegas RN Normal 2 coagulation managed by Luis Vanegas RN 2 prothrombin time (patient) 19.8 s Luis Vanegas RN 2 international normalized ratio (INR) 2.0 Luis Vanegas RN Normal 8 coagulation managed by Luis Vanegas RN 8 prothrombin time (patient) 13.7 s Luis Vanegas RN 8 international normalized ratio (INR) 1.4 Luis Vanegas RN Normal 5 coagulation managed by Luis Vanegas RN 5 prothrombin time (patient) 53.4 s Luis Vanegas RN 5 international normalized ratio (INR) 5.3 Luis Vanegas RN Normal 7 coagulation managed by Luis Vanegas RN 7 prothrombin time (patient) 17.0 s Denyean Mishra 7 international normalized ratio (INR) 1.7 Denyean Mishra Normal 5 coagulation managed by Luis Vanegas RN 5 prothrombin time (patient) 10.7 s Mario Manacop 5 international normalized ratio (INR) 1.1 Mario Manacop Normal HISTORY OF MEDICATION USE Medication Status Instructions Dates Provider Indications Com ments LISINOPRIL 5 MG ORAL TABLET active take 1 tab daily Torri Virgen METOPROLOL TARTRATE 50 MG ORAL TABLET completed 1/2 tab. twice daily - Mario Manacopablo FLECAINIDE ACETATE 50 MG ORAL TABLET completed one tab twice daily - Mario Manacop COUMADIN 5 MG ORAL TABLET completed 1 1/2 tabs daily - Мария Barraza SOCIAL HISTORY Date Observation Value Provider number of grandchildren Mirza Alcantara social history E&M Marital Statu s: L jeet with family/friends E thnicity: Smoking History: Pablo lashanda is a former smoker. Jonathan Alcantara social history reviewed E&M revi ewed - no changes required Jonathan Alcantara caffeine use, averag e drinks per day no Torri Virgen passive cigarette sm humera exposure no Torri Virgen smoking status Former smoker Torri coker social history reviewed E&M reviewed Mirza Kumari MD drug use none Mirza león MD social history reviewed E&M reviewed Luis Vanegas RN smoking/tobacco cess ation, patient education and counseling yes Mirza Kumari MD social history reviewed E&M reviewed Mirza Kumari MD drug use none Mirza león MD passive cigarette sm humera exposure no Luis Vanegas RN smoking history, tot al pack/year 20 Luis Vanegas RN smoking, year quit 2012 Luis avila RN social history E&M Marital Statu s: L jeet with family/friends E thnicity: Luis Vanegas RN caffeine use, averag e drinks per day no Luis Vanegas RN smoking status former smoker Luis Alvarez social history reviewed E&M reviewed Luis Vanegas RN MENTAL STATUS Date Observation Value Provider assessment of judgme nt and insight E&M Alert and oriented to time, place and person. Mood and affect are normal. Mirza Kumari MD assessment of judgme nt and insight E&M Alert and oriented to time, place and person. Mood and affect are normal. Luis Vanegas RN assessment of judgme nt and insight E&M Alert and oriented to time, place and person. Mood and affect are normal. Mirza Kumari MD assessment of judgme nt and insight E&M Alert and oriented to time, place and person. Mood and affect are normal. Luis Vanegas RN INSURANCE PROVIDERS Payer name Policy type / Coverage type [place] red constitution party ID [facility] [id number] ADVANCE DIRECTIVES Name Date DISCUSSED - NO DECISION MADE TREATMENT PLAN Date Name Performer Electrophysiology New Patient Brigida Alcantara Electrophysiology Ne w Patient : H er updated medication list for this problem includes: Lisinopril 5 Mg Oral Tablet (Lisinopril) ..... Take 1 tab daily Orders: 9 9205 HIGH Complex (CPT-55812) M obile Cardiac Tele (CPT-56895) C OMPREHENSIVE METABOLIC PANEL, W/EGFR (21435) C BC (INCLUDES DIFF/PLT) (6399) T HYROID PANEL WITH TSH, 3RD GENERATION (7444) M AGNESIUM (622) H olter Monitor 48 hr (CPT-21171) Jonathan Alcantara Electrophysiology Ne w Patient : H er updated medication list for this problem includes: Lisinopril 5 Mg Oral Tablet (Lisinopril) ..... Take 1 tab daily Jonathan Quinton Electrophysiology Ne w Patient : H er updated medication list for this problem includes: Lisinopril 5 Mg Oral Tablet (Lisinopril) ..... Take 1 tab daily Jonathan Alcantara Date Name Holter Monitor 48 hr X-Ray, Chest - Routi ne LIPID PANEL MAGNESIUM THYROID PANEL WITH T SH, 3RD GENERATION CBC (INCLUDES DIFF/P LT) COMPREHENSIVE METABO LIC PANEL, W/EGFR Complete Echo Mobile Cardiac Tele DLCO - 61358 FRC - 44438 FVC - 16189 Spirometry Mobile Cardiac Tele Holter Monitor 24 Hr Venous Doppler Bilat eral LE - Standing Holter Monitor 24 Hr ABLATION w/ Anesthes ia HISTORY OF PROCEDURES Procedure Date Procedure Name Provider Procedure Notes S tatus Schedule Followup Mirza king MD in 2 weeks completed EKG Mirza avila MD completed EKG Mirza avila MD completed Schedule Followup Mirza king MD refferal for Dr. LEE forpopliteal vein insufficiency at [facility] office f u with SK in 6 month completed EKG Mirza avila MD completed Schedule Followup Mirza king MD fu in 1 week completed EKG Mirza avila MD completed Schedule Followup Mirza king MD in 3 weeks completed EKG Mirza avila MD completed
--- OUTSIDE RECORDS SUMMARY | 2024-08-25 10:06 | XMS_ITS | Referral Summary ---
Author Organization [facility] Orthopedic [facility] Address [address] [place] [address] Care Team Providers Care Therapy Assistant Name Role Phone Yousif Gaines MD, Cristian Unavailable [phone]- [phone] Garcia Villanueva MD Unavailable [phone] Janine Viveros DO Primary Care Provider [phone] Allergies Active Allergy Reactions Criticality Noted Date Comments Sulfa (Sulfonamide Antibiotics) Unknown 11/15 Medications lisinopriL (PRINIVIL,ZESTR IL) 10 mg tablet Active omeprazole (PriLOSEC) 40 mg capsule Take 1 capsule every day by oral route. Active Mounjaro 10 mg/0.5 mL pen injector ADMINISTER 10 MG UNDER THE SKIN WEEKLY 4 Active Active Problems Problem Noted Date Diagnosed Date Chronic deep vein thrombosis (DVT) of calf muscle vein of left lower extremity 09/15/2021 Assessment & Plan (01/23/2024 1:00 PM CDT): Continue anticoagulation as directed by PCP. Continue compression therapy. Assessment & Plan (10/02/2021 12:09 PM CDT): Impression: Patient has a history of both provoked an unprovoked DVTs to bilateral lower extremities. She underwent hypercoagulable workup and was negative. Patient reports her left lower extremity edema has much improved. She does have compression stockings however wears them intermittently. Plan: No surgical interventions are needed at this time. Patient to continue utilizing compression stocking and leg elevation for edema control. Patient to follow-up as needed. Assessment & Plan (09/15/2021 3:49 PM CAFETERIA DIRECTOR): Impression: Patient with recent unprovoked DVT of her left lower extremity in January 2021 with history of prior provoked right lower extremity DVT following a right knee surgery. She denies taking any hormone replacement therapy and is currently undergoing a hypercoagulable workup by Hematology. Venous duplex scan performed 08/31/2021 revealed chronic left posterior tibial and peroneal vein DVT. Plan: I discussed with the patient that she is not a candidate for any surgical or interventional treatment due to the chronic nature of her left lower extremity DVT. 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 Patient to follow up on as-needed basis. Abnormal radiographic examination 09/03/2021 Cellulitis 09/03/2021 Abdominal pain 09/03/2021 Epigastric pain 09/03/2021 Essential hypertension 09/03/2021 Assessment & Plan (10/02/2021 12:10 PM CDT): Impression: Chronic stable hypertension, controlled medications. Blood pressure stable this office visit. Plan: Medications reviewed, no changes made. Continue blood pressure management as per primary care provider. Assessment & Plan (09/15/2021 3:49 PM CAFETERIA DIRECTOR): Impression: Stable chronic hypertension. Plan: Medications reviewed and recommend continuing daily antihypertensive regimen as directed by patient's primary care physician. Folliculitis 09/03/2021 Low back pain 09/03/2021 Malaise and fatigue 09/03/2021 Obesity 09/03/2021 Bronchitis 09/03/2021 Sinusitis 09/03/2021 Ventricular arrhythmia 09/03/2021 Vitamin D deficiency 09/03/2021 Acute deep vein thrombosis (DVT) of popliteal ve in 07/31/2021 Acute deep vein thrombosis (DVT) (CMS/HCC) 05/22 Blood clotting tendency (CMS/HCC) 05/07/2021 Intermittent palpitations 08/03/2019 Shortness of breath 04/06/2013 Foot pain, left 09/22/2012 Assessment & Plan (01/23/2024 12:59 PM CDT): No circulatory etiology evident for patient's lower extremity pain. Swelling is well controlled she has no arterial disease. Recommended continued podiatry follow-up continue current medical management follow up PRN Assessment & Plan (10/02/2021 12:11 PM CDT): Impression: Patient complains of left foot pain. She has an upcoming appointment with podiatry for further evaluation. Plan: Will defer recommendations to acting teacher. Immunizations Name Administration Dates Next Due Influenza, Quadrivalent, Split, Intramuscular Influenza, Quadrivalent, Spl it, Preservative Free, Intramuscular 05/25/2021 Social History Tobacco Use Types Packs/Day Years Used Date Smoking Tobacco: Former Cigarettes Q uit: 01/2021 AUDIT-C Answer Date Recorded Q1: How often do you have a drink containing alc ohol? Never 09/14/2021 Average Number of Drinks Not on file 022 Q3: How often do you have si x or more drinks on one occasion? Never 09/14/2021 Personal Safety Answer Date Recorded Getting School Help Needed Not on file 09/30 Comments No Sex and Gender Information Value Date Recorded Sex Assigned at Not on file Legal Sex Female 7:41 PM CAFETERIA DIRECTOR Gender Identity Not on file Sexual Orientation Not on file Last Filed Vital Signs Vital Sign Reading Time Taken Comments Blood Pressure 130/85 01/11/2024 3:24 PM CDT Pulse 105 01/11/2024 3:24 PM CDT Temperature 36.7 C (98 F) 09/14/2021 8:52 AM CAFETERIA DIRECTOR Respiratory Rate 18 09/14/2021 8:52 AM CAFETERIA DIRECTOR Oxygen Saturation 100% 09/14/2021 8:52 AM CAFETERIA DIRECTOR Inhaled Oxygen Concentration - - Weight 119.3 kg (263 lb) 01/11/2024 3:24 PM CDT Height 177.8 cm (5' 10 ) 01/11/2024 3:24 PM CDT Body Mass Index 37.74 01/11/2024 3:24 PM CDT Plan of Treatment Not on file Insurance [facility] [employer] [id number] [employer] [place] [facility] [employer] [id number] [employer] [place] [facility] [employer] [id number] [employer] [place] Care Teams Therapy Assistant Relationship Specialty Start Date End Date Vernacjhonatan Janine Hinton DO [address] [place] [address] [address] [place] [address] PCP - General Family Medicine 01/11/24 Cristian Dodd Jr., MD Medical Oncologist/Personal Consultant Medical Oncology 07/31/21 Garcia Villanueva MD [email or web address] [address] [place] [address] Surgeon Surgery 09/02/21
--- OUTSIDE RECORDS SUMMARY | 2024-08-25 10:06 | XMS_ITS | Data Portability ---
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 Suspect radiculopathy for her arm [email or web address] Not available 03/24/2023 22:31:06 Plan of Treatment Reminders Order Date Submit Date Provider Last Modified By Organization Details Last Modified Time Details Appointments None recorded. Lab ASO (antistrept olysin O) Ab, quantitativ e, serum 2022 023 [facility] (Lab), [address] [place], [address], 3 08:18:52 tanya-bar r virus (ebv) Ab, serum 2022 023 [facility] (Lab), [address] [place], [address], 3 13:11:10 CBC w/ auto diff [address] (Lab), [address] [place], [address], 3 17:05:17 CMP, serum or plasma [address] (Lab), [address] [place], [address], 3 17:05:17 TSH, serum or plasma 2022 023 [facility] (Lab), [address] [place], [address], 3 11:31:40 T3, free, serum or plasma 2022 023 [facility] (Lab), [address] [place], [address], 3 10:54:32 T4, free, serum 2022 023 [facility] (Lab), [address] [place], [address], 3 10:54:28 CBC w/ auto diff 2022 023 [facility] (Lab), [address] [place], [address], 3 10:44:19 CMP, serum or plasma 2022 023 [facility] (Lab), [address] [place], [address], 3 10:52:18 lipase, serum or plasma 2022 023 [facility] (Lab), [address] [place], [address], 3 10:52:[address] referral 2022 023 [facility], [address] [place], [address], 3 09:02:39 Procedures None recorded. Surgeries None recorded. Imaging US, gallbladder 2022 023 [email or web address] [facility] ([facility]), [address] [place], [address], 4 18:23:40 Medication Orders prednisone 20 mg tablet 2022 023 [id number], [address], [place], [place], [id number], 3 16:38:25 omeprazole 40 mg capsule,del ayed release 2022 023 [id number], [address], [place], [place], [id number], 3 17:29:47 Patient TargetsNo targets recorded. Patient InstructionsNo instructions recorded. 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 Referring Physician: Wanda George, Internal Medicine, Encounter Date: 11/24/2022 Results Created Date Observation Date Name Description Value Unit Range Abnormal Flag Note LastModifiedBy Organization Detail LastModifiedTime 11/25/1911/24/2022 CBC/C OMPLE TE BLD COUNT W/DIF F white blood cells 9.8 x10'3 /uL 4.2-10 .8 Not Available [facility] (Lab) [address] [place], [address], 11/24/2022 16:26:32 11/25/19 23 11/24/2022 CBC/C OMPLE TE BLD COUNT W/DIF F red blood cells 4.57 x10'6 /uL 3.80-5 .20 Not Available [facility] (Lab) [address] [place], [address], 11/24/2022 16:26:32 11/25/19 23 11/24/2022 CBC/C OMPLE TE BLD COUNT W/DIF F hemoglobin 14.9 g/dL 12.0-1 5.6 Not Available [facility] (Lab) [address] [place], [address], 11/24/2022 16:26:32 11/25/19 23 11/24/2022 CBC/C OMPLE TE BLD COUNT W/DIF F hematocrit 44.7 % 35.7-4 5.7 Not Available [facility] (Lab) [address] [place], [address], 11/24/2022 16:26:32 11/25/19 23 11/24/2022 CBC/C OMPLE TE BLD COUNT W/DIF F mean red cell volume 97.8 fL 82.0-9 9.0 Not Available [facility] (Lab) [address] [place], [address], 11/24/2022 16:26:32 11/25/19 23 11/24/2022 CBC/C OMPLE TE BLD COUNT W/DIF F mean red cell hemoglobin 32.6 pg 27.0-3 3.0 Not Available [facility] (Lab) [address] [place], [address], 11/24/2022 16:26:32 11/25/19 23 11/24/2022 CBC/C OMPLE TE BLD COUNT W/DIF F mean RBC HGB concentratio n 33.3 g/dL 31.0-3 6.0 Not Available [facility] (Lab) [address] [place], [address], 11/24/2022 16:26:32 11/25/19 23 11/24/2022 CBC/C OMPLE TE BLD COUNT W/DIF F red cell distribution width 12.9 % 11.8-1 5.5 Not Available [facility] (Lab) [address] [place], [address], 11/24/2022 16:26:32 11/25/19 23 11/24/2022 CBC/C OMPLE TE BLD COUNT W/DIF F platelets 249 x10'3 /uL 150-40 0 Not Available [facility] (Lab) [address] [place], [address], 11/24/2022 16:26:32 11/25/19 23 11/24/2022 CBC/C OMPLE TE BLD COUNT W/DIF F mean platelet volume 9.9 fL 9.0-12 .4 Not Available [facility] (Lab) [address] [place], [address], 11/24/2022 16:26:32 11/25/19 23 11/24/2022 CBC/C OMPLE TE BLD COUNT W/DIF F neutrophils 64.8 % 39.0-7 2.0 Not Available [facility] (Lab) [address] [place], [address], 11/24/2022 16:26:32 11/25/19 23 11/24/2022 CBC/C OMPLE TE BLD COUNT W/DIF F lymphocytes 24.0 % 16.0-4 7.0 Not Available [facility] (Lab) [address] [place], [address], 11/24/2022 16:26:32 11/25/19 23 11/24/2022 CBC/C OMPLE TE BLD COUNT W/DIF F monocytes 7.6 % 5.0-12 .0 Not Available [facility] (Lab) [address] [place], [address], 11/24/2022 16:26:32 11/25/19 23 11/24/2022 CBC/C OMPLE TE BLD COUNT W/DIF F eosinophils 2.4 % 1.0-7. 0 Not Available [facility] (Lab) [address] [place], [address], 11/24/2022 16:26:32 11/25/19 23 11/24/2022 CBC/C OMPLE TE BLD COUNT W/DIF F basophils 0.6 % 0.0-2. 0 Not Available [facility] (Lab) [address] [place], [address], 11/24/2022 16:26:32 11/25/19 23 11/24/2022 CBC/C OMPLE TE BLD COUNT W/DIF F immature granulocytes 0.6 % 0.00-0 .50 high Not Available [facility] (Lab) [address] [place], [address], 11/24/2022 16:26:32 11/25/19 23 11/24/2022 CBC/C OMPLE TE BLD COUNT W/DIF F neutrophils, absolute count 6.36 x10'3 /uL 1.5-8. 0 Not Available [facility] (Lab) [address] [place], [address], 11/24/2022 16:26:32 11/25/19 23 11/24/2022 CBC/C OMPLE TE BLD COUNT W/DIF F lymphocytes, absolute count 2.36 x10'3 /uL 1.07-3 .43 Not Available [facility] (Lab) [address] [place], [address], 11/24/2022 16:26:32 11/25/19 23 11/24/2022 CBC/C OMPLE TE BLD COUNT W/DIF F monocytes, absolute count 0.75 x10'3 /uL 0.29-0 .99 Not Available [facility] (Lab) [address] [place], [address], 11/24/2022 16:26:32 11/25/19 23 11/24/2022 CBC/C OMPLE TE BLD COUNT W/DIF F eosinophils, absolute count 0.24 x10'3 /uL 0.02-0 .53 Not Available [facility] (Lab) [address] [place], [address], 11/24/2022 16:26:32 11/25/19 23 11/24/2022 CBC/C OMPLE TE BLD COUNT W/DIF F basophils, absolute count 0.06 x10'3 /uL 0.01-0 .08 Not Available [facility] (Lab) [address] [place], [address], 11/24/2022 16:26:32 11/25/19 23 11/24/2022 CBC/C OMPLE TE BLD COUNT W/DIF F immature granulocytes ,absolute 0.06 x10'3 /uL 0.00-0 .05 high Not Available [facility] (Lab) [address] [place], [address], 11/24/2022 16:26:32 11/25/19 23 11/24/2022 CBC/C OMPLE TE BLD COUNT W/DIF F nucleated red blood cells 0.0 % -0 Not Available [facility] (Lab) [address] [place], [address], 11/24/2022 16:26:32 11/25/19 23 11/24/2022 CBC/C OMPLE TE BLD COUNT W/DIF F NRBC# 0.00 x10'3 /uL Not Available [facility] (Lab) [address] [place], [address], 11/24/2022 16:26:32 11/25/19 23 11/24/2022 COMPR EHENS TOO METAB OLIC PANEL sodium 138 mmol/ L 137-14 5 Not Available [facility] (Lab) [address] [place], [address], 11/24/2022 16:59:28 11/25/19 23 11/24/2022 COMPR EHENS TOO METAB OLIC PANEL potassium 4.1 mmol/ L 3.5-5. 1 Not Available [facility] (Lab) [address] [place], [address], 11/24/2022 16:59:28 11/25/19 23 11/24/2022 COMPR EHENS TOO METAB OLIC PANEL chloride 103 mmol/ L 98-107 Not Available [facility] (Lab) [address] [place], [address], 11/24/2022 16:59:28 11/25/19 23 11/24/2022 COMPR EHENS TOO METAB OLIC PANEL carbon dioxide 24 mmol/ L 22-30 Not Available [facility] (Lab) [address] [place], [address], 11/24/2022 16:59:28 11/25/19 23 11/24/2022 COMPR EHENS TOO METAB OLIC PANEL anion gap 15.1 mmol/ L 14-22 Not Available [facility] (Lab) [address] [place], [address], 11/24/2022 16:59:28 11/25/19 23 11/24/2022 COMPR EHENS TOO METAB OLIC PANEL glucose 100 mg/dL 70-99 high Not Available [facility] (Lab) [address] [place], [address], 11/24/2022 16:59:28 11/25/19 23 11/24/2022 COMPR EHENS TOO METAB OLIC PANEL BUN 13 mg/dL 8-19 Not Available [facility] (Lab) [address] [place], [address], 11/24/2022 16:59:28 11/25/19 23 11/24/2022 COMPR EHENS TOO METAB OLIC PANEL creatinine 0.68 mg/dL 0.66-1 .25 Not Available [facility] (Lab) [address] [place], [address], 11/24/2022 16:59:28 11/25/1911/24/2022 COMPR EHENS TOO METAB OLIC PANEL GFR >60 Refer ence Range : [place] ge GFR Healt hy Adult : >60 mL/mi n/1.7 3 m2 Chron ic Kidne y Disea se: 15-60 mL/mi n/1.7 3 m2 Kidne y Failu re: <15/m L/min /1.73 m2 www.n iddk. nih.g ov The MDRD study equat ion has not been valid ated in child luis a <18 years of age; pregn ant women ; the elder ly >85 years of age; or in some racia l or ethni c subgr oups, such as Hisil nics. Outsi de the valid ated karen eters , estim ated GFR is less accur ate, requi ring clini sarah judgm ent on a case- by-ca se basis . Clini sarah inter preta tion for other races and ages must be made by the clini catherine. The MDRD study equat ion has not been valid ated for the evalu ation of serum creat inine relat ed to nutri suma l statu s or medic ation usage . For perso ns <18 years of age, a pedia tric GFR calcu lator is avail able on the [facility] websi te: https ://sonia pollard.derek rg/pr ofess ional s/kdo qi/gf r_cal culat or Not Available [facility] (Lab) [address] [place], [address], 11/24/2022 16:59:28 11/25/19 23 11/24/2022 COMPR EHENS TOO METAB OLIC PANEL alkaline phosphatase 99 U/L 38-126 Not Available [facility] (Lab) [address] [place], [address], 11/24/2022 16:59:28 11/25/19 23 11/24/2022 COMPR EHENS TOO METAB OLIC PANEL alanine aminotransfe rase 59 U/L 0-35 high Not Available [facility] (Lab) [address] [place], [address], 11/24/2022 16:59:28 11/25/19 23 11/24/2022 COMPR EHENS TOO METAB OLIC PANEL aspartate aminotransfe rase 52 U/L 15-37 high Not Available [facility] (Lab) [address] [place], [address], 11/24/2022 16:59:28 11/25/19 23 11/24/2022 COMPR EHENS TOO METAB OLIC PANEL bilirubin, total 1.10 mg/dL 0.20-1 .30 Not Available [facility] (Lab) [address] [place], [address], 11/24/2022 16:59:28 11/25/19 23 11/24/2022 COMPR EHENS TOO METAB OLIC PANEL calcium 9.1 mg/dL 8.4-10 .2 Not Available [facility] (Lab) [address] [place], [address], 11/24/2022 16:59:28 11/25/19 23 11/24/2022 COMPR EHENS TOO METAB OLIC PANEL total protein 6.9 g/dL 6.3-8. 2 Not Available [facility] (Lab) [address] [place], [address], 11/24/2022 16:59:28 11/25/19 23 11/24/2022 COMPR EHENS TOO METAB OLIC PANEL albumin 4.1 g/dL 3.4-5. 0 Not Available [facility] (Lab) [address] [place], [address], 11/24/2022 16:59:28 11/25/19 23 11/24/2022 COMPR EHENS TOO METAB OLIC PANEL globulin 2.8 g/dL 2.6-4. 2 Not Available [facility] (Lab) [address] [place], [address], 11/24/2022 16:59:28 11/25/19 23 11/24/2022 COMPR EHENS TOO METAB OLIC PANEL A/G ratio 1.5 ratio 1.0-2. 0 Not Available [facility] (Lab) [address] [place], [address], 11/24/2022 16:59:28 11/25/19 23 11/25/2022 ANTIS TREPT OLYSI N O AB antistreptol ysin O Ab 188.8 IU/mL 0.0-20 0.0 [facility] [address] [place] [address] Lab Direc tor: Alton boateng PhD, Phone : [phone] Not Available [facility] (Lab) [address] [place], [address], 11/25/2022 08:18:52 11/25/1911/25/2022 EBV/E PSTEI N-BAR R AB PROFI LE ebv Ab vca, IgM <36.0 U/mL 0.0-35 .9 Negat too <36.0 Equiv ocal 36.0 - 43.9 Posit too >43.9 Not Available [facility] (Lab) [address] [place], [address], 11/25/2022 13:11:10 11/25/19 23 11/25/2022 EBV/E PSTEI N-BAR R AB PROFI LE ebv nuclear antigen Ab, IgG >600.0 U/mL 0.0-17 .9 high Negat too <18.0 Equiv ocal 18.0 - 21.9 Posit too >21.9 Not Available [facility] (Lab) [address] [place], [address], 11/25/2022 13:11:10 11/25/1911/25/2022 EBV/E PSTEI N-BAR R AB PROFI LE ebv Ab vca, IgG 517.0 U/mL 0.0-17 .9 high Negat too <18.0 Equiv ocal 18.0 - 21.9 Posit too >21.9 Not Available [facility] (Lab) [address] [place], [address], 11/25/2022 13:11:10 11/25/19 23 11/25/2022 EBV/E PSTEI N-BAR R AB PROFI LE interpretati on: COMMEN T . EBV Inter preta tion Chart Lopez: Antib deshawn Prese nt + Antib deshawn Absen t - Inter preta tion VCA-I gM VCA-I gG EBNA- IgG . No previ ous infec tion/ - - - Susce ptibl e Prima ry infec tion (new + + - or recen t) Past Infec tion +or- + + See comme nt below * + - - *Resu lts indic ate infec tion with EBV at some time howev er canno t predi ct the timin g of the infec tion since antib odies to EBNA usual ly devel op after prima ry infec tion or, alter nativ alex, appro ximat alex 5-10% of patie nts with EBV never devel op antib odies to EBNA. Perfo rmed at: - [place] [id number] Lab Direc tor: Alton boateng PhD, Phone : [phone] Not Available [facility] (Lab) [address] [place], [address], 11/25/2022 13:11:10 12/08/19 23 12/07/2022 T3 FREE free T3 4.3 pg/mL 2.77-5 .27 Not Available [facility] (Lab) [address] [place], [address], 12/07/2022 13:19:48 12/08/1912/07/2022 T4 FREE free T4 1.44 NG/dL 0.78-2 .19 Not Available [facility] (Lab) [address] [place], [address], 12/07/2022 13:19:50 12/08/1912/07/2022 TSH thyroid-stim ulating hormone 0.803 uIU/m L 0.465- 4.680 Not Available [facility] (Lab) [address] [place], [address], 12/07/2022 20:03:28 04/01/2004/01/2023 CBC/C OMPLE TE BLD COUNT W/DIF F white blood cells 6.2 x10'3 /uL 4.2-10 .8 Not Available [facility] (Lab) [address] [place], [address], 04/01/2023 10:44:19 04/01/2004/01/2023 CBC/C OMPLE TE BLD COUNT W/DIF F red blood cells 4.59 x10'6 /uL 3.80-5 .20 Not Available [facility] (Lab) [address] [place], [address], 04/01/2023 10:44:19 04/01/2004/01/2023 CBC/C OMPLE TE BLD COUNT W/DIF F hemoglobin 15.2 g/dL 12.0-1 5.6 Not Available [facility] (Lab) [address] [place], [address], 04/01/2023 10:44:19 04/01/2004/01/2023 CBC/C OMPLE TE BLD COUNT W/DIF F hematocrit 44.3 % 35.7-4 5.7 Not Available [facility] (Lab) [address] [place], [address], 04/01/2023 10:44:19 04/01/2004/01/2023 CBC/C OMPLE TE BLD COUNT W/DIF F mean red cell volume 96.5 fL 82.0-9 9.0 Not Available [facility] (Lab) [address] [place], [address], 04/01/2023 10:44:04/01/2004/01/2023 CBC/C OMPLE TE BLD COUNT W/DIF F mean red cell hemoglobin 33.1 pg 27.0-3 3.0 high Not Available [facility] (Lab) [address] [place], [address], 04/01/2023 10:44:04/01/2004/01/2023 CBC/C OMPLE TE BLD COUNT W/DIF F mean RBC HGB concentratio n 34.3 g/dL 31.0-3 6.0 Not Available [facility] (Lab) [address] [place], [address], 04/01/2023 10:44:04/01/20 23 04/01/2023 CBC/C OMPLE TE BLD COUNT W/DIF F red cell distribution width 11.9 % 11.8-1 5.5 Not Available [facility] (Lab) [address] [place], [address], 04/01/2023 10:44:04/01/2004/01/2023 CBC/C OMPLE TE BLD COUNT W/DIF F platelets 228 x10'3 /uL 150-40 0 Not Available [facility] (Lab) [address] [place], [address], 04/01/2023 10:44:04/01/2004/01/2023 CBC/C OMPLE TE BLD COUNT W/DIF F mean platelet volume 10.0 fL 9.0-12 .4 Not Available [facility] (Lab) [address] [place], [address], 04/01/2023 10:44:04/01/2004/01/2023 CBC/C OMPLE TE BLD COUNT W/DIF F neutrophils 47.2 % 39.0-7 2.0 Not Available [facility] (Lab) [address] [place], [address], 04/01/2023 10:44:04/01/2004/01/2023 CBC/C OMPLE TE BLD COUNT W/DIF F lymphocytes 39.7 % 16.0-4 7.0 Not Available [facility] (Lab) [address] [place], [address], 04/01/2023 10:44:04/01/2004/01/2023 CBC/C OMPLE TE BLD COUNT W/DIF F monocytes 7.1 % 5.0-12 .0 Not Available [facility] (Lab) [address] [place], [address], 04/01/2023 10:44:04/01/2004/01/2023 CBC/C OMPLE TE BLD COUNT W/DIF F eosinophils 4.5 % 1.0-7. 0 Not Available [facility] (Lab) [address] [place], [address], 04/01/2023 10:44:04/01/2004/01/2023 CBC/C OMPLE TE BLD COUNT W/DIF F basophils 1.0 % 0.0-2. 0 Not Available [facility] (Lab) [address] [place], [address], 04/01/2023 10:44:04/01/2004/01/2023 CBC/C OMPLE TE BLD COUNT W/DIF F immature granulocytes 0.5 % 0.00-0 .50 Not Available [facility] (Lab) [address] [place], [address], 04/01/2023 10:44:19 04/01/20 23 04/01/2023 CBC/C OMPLE TE BLD COUNT W/DIF F neutrophils, absolute count 2.93 x10'3 /uL 1.5-8. 0 Not Available [facility] (Lab) [address] [place], [address], 04/01/2023 10:44:04/01/2004/01/2023 CBC/C OMPLE TE BLD COUNT W/DIF F lymphocytes, absolute count 2.46 x10'3 /uL 1.07-3 .43 Not Available [facility] (Lab) [address] [place], [address], 04/01/2023 10:44:04/01/2004/01/2023 CBC/C OMPLE TE BLD COUNT W/DIF F monocytes, absolute count 0.44 x10'3 /uL 0.29-0 .99 Not Available [facility] (Lab) [address] [place], [address], 04/01/2023 10:44:04/01/2004/01/2023 CBC/C OMPLE TE BLD COUNT W/DIF F eosinophils, absolute count 0.28 x10'3 /uL 0.02-0 .53 Not Available [facility] (Lab) [address] [place], [address], 04/01/2023 10:44:04/01/2004/01/2023 CBC/C OMPLE TE BLD COUNT W/DIF F basophils, absolute count 0.06 x10'3 /uL 0.01-0 .08 Not Available [facility] (Lab) [address] [place], [address], 04/01/2023 10:44:19 04/01/20 23 04/01/2023 CBC/C OMPLE TE BLD COUNT W/DIF F immature granulocytes ,absolute 0.03 x10'3 /uL 0.00-0 .05 Not Available [facility] (Lab) [address] [place], [address], 04/01/2023 10:44:19 04/01/20 23 04/01/2023 CBC/C OMPLE TE BLD COUNT W/DIF F nucleated red blood cells 0.0 % -0 Not Available [facility] (Lab) [address] [place], [address], 04/01/2023 10:44:19 04/01/20 23 04/01/2023 CBC/C OMPLE TE BLD COUNT W/DIF F NRBC# 0.00 x10'3 /uL Not Available [facility] (Lab) [address] [place], [address], 04/01/2023 10:44:19 04/01/20 23 04/01/2023 LIPAS E SERUM lipase 45 U/L 23-300 Not Available [facility] (Lab) [address] [place], [address], 04/01/2023 10:52:07 04/01/20 23 04/01/2023 COMPR EHENS TOO METAB OLIC PANEL sodium 138 mmol/ L 137-14 5 Not Available [facility] (Lab) [address] [place], [address], 04/01/2023 10:52:18 04/01/20 23 04/01/2023 COMPR EHENS TOO METAB OLIC PANEL potassium 4.5 mmol/ L 3.5-5. 1 Not Available [facility] (Lab) [address] [place], [address], 04/01/2023 10:52:18 04/01/20 23 04/01/2023 COMPR EHENS TOO METAB OLIC PANEL chloride 104 mmol/ L 98-107 Not Available [facility] (Lab) [address] [place], [address], 04/01/2023 10:52:18 04/01/20 23 04/01/2023 COMPR EHENS TOO METAB OLIC PANEL carbon dioxide 25 mmol/ L 22-30 Not Available [facility] (Lab) [address] [place], [address], 04/01/2023 10:52:18 04/01/20 23 04/01/2023 COMPR EHENS TOO METAB OLIC PANEL anion gap 13.5 mmol/ L 14-22 low Not Available [facility] (Lab) [address] [place], [address], 04/01/2023 10:52:18 04/01/20 23 04/01/2023 COMPR EHENS TOO METAB OLIC PANEL glucose 116 mg/dL 70-99 high Not Available [facility] (Lab) [address] [place], [address], 04/01/2023 10:52:18 04/01/20 23 04/01/2023 COMPR EHENS TOO METAB OLIC PANEL BUN 13 mg/dL 8-19 Not Available [facility] (Lab) [address] [place], [address], 04/01/2023 10:52:18 04/01/20 23 04/01/2023 COMPR EHENS TOO METAB OLIC PANEL creatinine 0.67 mg/dL 0.66-1 .25 Not Available [facility] (Lab) [address] [place], [address], 04/01/2023 10:52:18 04/01/20 23 04/01/2023 COMPR EHENS TOO METAB OLIC PANEL GFR >60 Refer ence Range : [place] ge GFR Healt hy Adult : >60 mL/mi n/1.7 3 m2 Chron ic Kidne y Disea se: 15-60 mL/mi n/1.7 3 m2 Kidne y Failu re: <15/m L/min /1.73 m2 www.n iddk. nih.g ov The MDRD study equat ion has not been valid ated in child luis a <18 years of age; pregn ant women ; the elder ly >85 years of age; or in some racia l or ethni c subgr oups, such as Hispa nics. Outsi de the valid ated karen eters , estim ated GFR is less accur ate, requi ring clini sarah judgm ent on a case- by-ca se basis . Clini sarah inter preta tion for other races and ages must be made by the clini catherine. The MDRD study equat ion has not been valid ated for the evalu ation of serum creat inine relat ed to nutri suma l statu s or medic ation usage . For perso ns <18 years of age, a pedia tric GFR calcu lator is avail able on the [facility] websi te: https :[email or web address] aaron.vinicius pollard.o rg/pr ofess ional s/kdo qi/gf r_cal culat or Not Available [facility] (Lab) [address] [place], [address], 04/01/2023 10:52:18 04/01/20 23 04/01/2023 COMPR EHENS TOO METAB OLIC PANEL alkaline phosphatase 83 U/L 38-126 Not Available [facility] (Lab) [address] [place], [address], 04/01/2023 10:52:18 04/01/20 23 04/01/2023 COMPR EHENS TOO METAB OLIC PANEL alanine aminotransfe rase 66 U/L 0-35 high Not Available [facility] (Lab) [address] [place], [address], 04/01/2023 10:52:18 04/01/20 23 04/01/2023 COMPR EHENS TOO METAB OLIC PANEL aspartate aminotransfe rase 51 U/L 15-37 high Not Available [facility] (Lab) [address] [place], [address], 04/01/2023 10:52:18 04/01/20 23 04/01/2023 COMPR EHENS TOO METAB OLIC PANEL bilirubin, total 1.20 mg/dL 0.20-1 .30 Not Available [facility] (Lab) [address] [place], [address], 04/01/2023 10:52:18 04/01/20 23 04/01/2023 COMPR EHENS TOO METAB OLIC PANEL calcium 9.7 mg/dL 8.4-10 .2 Not Available [facility] (Lab) [address] [place], [address], 04/01/2023 10:52:18 04/01/20 23 04/01/2023 COMPR EHENS TOO METAB OLIC PANEL total protein 7.2 g/dL 6.3-8. 2 Not Available [facility] (Lab) [address] [place], [address], 04/01/2023 10:52:18 04/01/20 23 04/01/2023 COMPR EHENS TOO METAB OLIC PANEL albumin 4.3 g/dL 3.4-5. 0 Not Available [facility] (Lab) [address] [place], [address], 04/01/2023 10:52:18 04/01/20 23 04/01/2023 COMPR EHENS TOO METAB OLIC PANEL globulin 2.9 g/dL 2.6-4. 2 Not Available [facility] (Lab) [address] [place], [address], 04/01/2023 10:52:18 04/01/20 23 04/01/2023 COMPR EHENS TOO METAB OLIC PANEL A/G ratio 1.5 ratio 1.0-2. 0 Not Available [facility] (Lab) [address] [place], [address], 04/01/2023 10:52:18 04/01/20 23 04/01/2023 T4 FREE free T4 1.07 NG/dL 0.78-2 .19 Not Available [facility] (Lab) [address] [place], [address], 04/01/2023 10:54:28 04/01/20 23 04/01/2023 T3 FREE free T3 3.8 pg/mL 2.77-5 .27 Not Available [facility] (Lab) [address] [place], [address], 04/01/2023 10:54:32 04/01/20 23 04/01/2023 TSH thyroid-stim ulating hormone 1.200 uIU/m L 0.465- 4.680 Not Available [facility] (Lab) [address] [place], [address], 04/01/2023 11:31:40 01/18/20 23 01/17/2023 US, doppl er, venou s No observ ation record ed. [email or web address], [place], [address], 03/24/2023 16:38:05 04/01/20 23 04/01/2023 US, abdom en, limit ed [facility] [address] [place] [address] Patien t Name: JEVON PATEL Access ion #: [id number] Sex: F : 1974 0 Dictat ed By: Jimenez Castillo Attend ing Physic carolina: , Orderi ng Physic carolina: BO GEORGE Exam Date: 2022 10:48 AM Exam Name: US ABDOME N SINGLE ORGAN Admitt ing Diagno sis(es ): STUDY: ULTRAS OUND OF ABDOME N - SINGLE ORGAN HISTOR Y: Histor y of abdomi nal pain. TECHNI QUE: Real-t rosalia graysc francis sonogr aphy of the specif ied abdomi nal organ was perfor med. FINDIN GS: Liver: Size: Enlarg ed, measur ing 22.84 cm. Echote xture: Increa sed echoge nicity consis tent with hepati c steato sis or fatty liver change s. Flow: Hepato petal flow observ ed. Lesion s: None identi fied. Gallbl adder: Appear ance: Normal . Wall thickn ess: 1.93 mm. Lumen: No eviden ce of stones or other abnorm alitie s. Sonogr aphic Avalos Sign: Negati ve. Common bile duct (CBD): Measur es 6.24 mm in diamet er and is not abnorm ally disten ded. No eviden ce of stones or mass lesion s within . Pancre as: Visual izatio n: Not visual ized. Right Kidney : Length (L): 11.12 cm Height (H): 4.74 cm Width (W): 5.43 cm Volume : 149.95 ml Echoge nicity : Normal . Page 1 [facility] [address] [place] [address] Patien t Name: JEVON PATEL Access ion #: [id number] Sex: F : 1974 0 Dictat ed By: Jimenez Castillo Attend ing Physic carolina: Jaya Physic carolina: BO GEORGE Exam Date: 2022 10:48 AM Exam Name: US ABDOME N SINGLE ORGAN Admitt ing Diagno sis(es ): Collec ting System : No dilata tion observ ed. Lesion s: None identi fied. Vessel s: Inferi or Vena Cava (IVC) and Aorta: Not visual ized. Perito deena Cavity : No free fluid identi fied within the abdome n. IMPRES [place]: 1. Enlarg ed liver with increa sed echoge nicity , sugges tive of hepati c steato sis or fatty liver change s. 2. Normal gallbl adder withou t eviden ce of cholel ithias is or cholec ystiti s. Normal common bile duct calibe r. 3. Non-vi sualiz ation of the pancre as and major abdomi nal vessel s. Clinic al correl ation recomm ended. 4. Normal -appea ring right kidney withou t any [facility] ting system dilata tion or mass lesion s. Electr onical ly Signed by: Jimenez Castillo at 2022 09:48: 29 AM Signat ure Date/T rosalia: 023 9:48 AM Page 2 [facility] (Imaging) [address] [place], [address], 04/11/2023 16:38:23 Result Notes None recorded. Problems Name Problem SNOMED Code Status Onset Date Resolution Date Notes Provider Name and Address Organization Details Recorded Time Sore throat 985108538 Active 2022 Not Available [facility] 4 01:56:38 Cellulitis 909668704 Active Not Available [facility] 4 01:56:38 Acute deep venous thrombosis 9090328267730 08 Active 2020 Not Available [facility] 4 01:56:38 Folliculit is 99193579 Active Not Available [facility] 4 01:56:38 Pain of left ankle joint 3360372991017 9103 Active 2021 Not Available [facility] 4 01:56:38 Radiology result abnormal 422102015 Active Not Available [facility] 4 01:56:38 Postoperat too visit 827603617 Active 2021 Not Available [facility] 4 01:56:38 Pleurisy 116272572 Active Not Available [facility] 4 01:56:38 Postoperat too pain 342748750 Active 2021 Not Available [facility] 4 01:56:38 Abdominal pain 46224742 Active Not Available [facility] 4 01:56:38 Sprain of lateral ligament of ankle joint 803991848 Active 2021 Not Available [facility] 4 01:56:38 Ligament rupture 308125500 Active 2021 Not Available [facility] 4 01:56:38 Malaise and fatigue 639279926 Active Not Available [facility] 4 01:56:38 Eruption 627940562 Active 2021 Not Available [facility] 4 01:56:38 Low back pain 675161623 Active Not Available [facility] 4 01:56:38 Pain in left lower limb 385675151 Active Not Available [facility] 4 01:56:38 Pain in right lower limb 136793844 Active Not Available [facility] 4 01:56:38 Pain in left foot 3755491751758 07 Active Not Available [facility] 4 01:56:38 Pain in right foot 5367836594948 07 Active 2021 Not Available [facility] 4 01:56:38 Bronchitis 67190306 Active Not Available [facility] 4 01:56:38 Vitamin D deficiency 50229819 Active Not Available [facility] 4 01:56:38 Sinusitis 22599610 Active Not Available [facility] 4 01:56:39 Nausea 304250084 Active 2021 Not Available [facility] 4 01:56:39 Acute urinary tract infection 346539393 Active 2021 Not Available [facility] 4 01:56:39 Foot pain 32086285 Active 2021 Not Available [facility] 4 01:56:39 Peroneal tendinitis 86602707 Active 2021 Not Available [facility] 4 01:56:39 Essential hypertensi on 69442486 Active Not Available [facility] 4 01:56:39 Muscle weakness of limb 531840446 Active 2021 Not Available [facility] 4 01:56:39 Epigastric pain 37504642 Active Not Available [facility] 4 01:56:39 Cramping pain 489325143 Active 2022 Not Available [facility] 4 01:56:38 Psoriatic arthritis 413639497 Active 2022 Not Available [facility] 4 01:56:38 Joint pain 31081645 Active 2022 Not Available [facility] 4 01:56:39 Blood glucose outside reference range 354047193 Active 2022 Not Available [facility] 4 01:56:38 Fatigue 52412510 Active 2022 Not Available [facility] 4 01:56:39 Psoriasis 7598873 Active 2022 Not Available [facility] 4 01:56:39 Weight gain 3364348 Active 2022 Not Available [facility] 4 01:56:39 Pain in limb 86299834 Active 2022 Not Available [facility] 4 01:56:39 Notes:Some problems listed i n Document: #[id number] could not be added to this patient's chart. Please review this document and add these problems to the patient's chart manually as needed. Problem Notes None recorded. Procedures Surgical History Date Name Laterality Status Provider Name and Address Organization Details Recorded Time 01/07/20 22 Ankle Surgery completed Not Available [facility] 2022 02:51:44 05/01/20 18 Exc back les sc 3 cm/> completed Not Available [facility] 09/15/2022 02:51:44 Tubal Ligation completed Not Available [facility] 09/15/2022 02:51:44 destruction of lesion of heart completed Not Available [facility] 09/15/2022 02:51:44 Knee Surgery completed Not Available [facility] 09/15/2022 02:51:44 Hysterectomy completed Not Available [facility] 09/15/2022 02:51:44 Imaging Results Imaging Date Name Status LastModified by Organiz ation Details LastModified Time 01/17/2023 US, doppler, venous completed [address] [facility] [address], [place], [address], 03/24/2023 16:38:05 04/01/2023 US, abdomen, limited completed [facility] (Imaging) [address] [place], [address], 04/11/2023 16:38:23 Procedure Notes None recorded. Medical Equipment None Reported. Allergies Allergen ID Allergen Name Allergen Category Reaction Reaction Severity Criticality Documentation Date Start Date Code Code System Note Provider Name and Address Organization Details Recorded Time 5244 Substance with sulfonami de structure and antibacte rial mechanism of action (substanc e) medicatio n Not available Not available Not available 09/15/20222019 07482 8003 SNOMED Not Available [facility] 3 03:08:32 Medications Name Sig Start Date Stop Date Status Note LastModified by Organization Details LastModified Time carisopro dol 350 mg tablet Take 1 tablet every day by oral route at bedtime. 04/26 completed Not Available Not Available Not Available celecoxib 200 mg capsule TK 1 C PO QD 06/11 completed Not Available Not Available Not Available cyclobenz aprine 10 mg tablet TK 1 T PO TID active Not Available Not Available No t Available amoxicill in 500 mg capsule TAKE 1 CAPSULE BY MOUTH TWICE DAILY 05/03 completed Not Available Not Available Not Available prednison e 10 mg tablet Take by oral route. active Not Available Not Available No t Available doxycycli ne hyclate 100 mg capsule TK 1 C PO BID FOR 7 DAYS active Not Available Not Available No t Available tizanidin e 2 mg tablet 08/11 completed Not Available Not Available Not Available clindamyc in HCl 300 mg capsule Take 1 capsule 3 times a day by oral route for 7 days. active Not Available Not Available No t Available azithromy mohini 250 mg tablet TAKE 2 TABLETS BY MOUTH FIRST DAY THEN TAKE 1 TABLET BY MOUTH DAILY 11/24 completed Not Available Not Available Not Available aspirin 325 mg tablet Take 1 tablet every day by oral route. 05/03 completed Not Available Not Available Not Available ibuprofen 800 mg tablet 08/11 completed Not Available Not Available Not Available tizanidin e 4 mg tablet Take 1 tablet twice a day by oral route. active Not Available Not Available No t Available hydrocodo ne 5 mg-acetam inophen 325 mg tablet TAKE 1 TABLET BY MOUTH TWICE DAILY FOR 7 DAYS NEEDED 05/03 completed Not Available Not Available Not Available ondansetr on HCl 8 mg tablet 10/15 completed Not Available Not Available Not Available prednison e 20 mg tablet TAKE 2 TABLETS BY MOUTH EVERY DAY FOR 7 DAYS 01/10 completed Not Available Not Available Not Available betametha sone, augmented 0.05 % topical cream APPLY TOPICALL Y TO THE AFFECTED AREA TWICE DAILY FOR 3 WEEKS 01/10 completed Not Available Not Available Not Available acetamino phen 300 mg-codein e 30 mg tablet TAKE 1 TABLET BY MOUTH TWICE DAILY X 7 DAYS 05/03 completed Not Available Not Available Not Available sulfameth oxazole 800 mg-trimet hoprim 160 mg tablet Take 1 tablet twice a day by oral route for 10 days. 06/11 completed Not Available Not Available Not Available omeprazol e 40 mg capsule,d elayed release Take 1 capsule every day by oral route. active Not Available Not Available No t Available tramadol 50 mg tablet TK 1 T PO Q 4 TO 6 H PRN P RATED 4 TO 6 04/27 completed Not Available Not Available Not Available triamcino lone acetonide 0.1 % topical cream APPLY TWICE DAILY OVER RASH FOR MORE THAN 3 WEEKS IN A ROW BEFORE TAKING A ONE WEEK BREAK. REPEAT IF NEEDED 03/24 completed Not Available Not Available Not Available ondansetr on 8 mg disintegr ating tablet DISSOLVE 1 TABLET ON THE TONGUE EVERY 8 HOURS FOR 5 DAYS NEEDED 05/03 completed Not Available Not Available Not Available Kenalog 40 mg/mL suspensio n for injection 12/07 completed Not Available Not Available Not Available oxycodone -acetamin ophen 5 mg-325 mg tablet TAKE 1 TABLET BY MOUTH EVERY 6 HOURS FOR 7 DAYS NEEDED 05/03 completed Not Available Not Available Not Available prednisol one acetate 1 % eye drops,anjum pension 04/27 completed Not Available Not Available Not Available gentamici n 0.3 % eye drops 04/16 completed Not Available Not Available Not Available pantopraz ole 40 mg tablet,de layed release 08/07 completed Not Available Not Available Not Available lisinopri l 10 mg tablet TAKE 1 TABLET BY MOUTH EVERY DAY active Not Available Not Available No t Available warfarin 5 mg tablet TAKE 1 AND ONE-HALF TABLETS BY MOUTH DAILY active Not Available Not Available No t Available Lovenox 80 mg/0.8 mL subcutane ous syringe Inject 0.7 mL every day by subcutan eous route. 08/07 completed Not Available Not Available Not Available diclofena c sodium 75 mg tablet,de layed release TAKE 1 TABLET BY MOUTH TWICE DAILY FOR PAIN 03/24 completed Not Available Not Available Not Available etodolac 400 mg tablet Take 1 tablet twice a day by oral route for 10 days. 04/27 completed Not Available Not Available Not Available monteluka st 10 mg tablet Take 1 tablet every day by oral route. 02/26 completed Not Available Not Available Not Available mupirocin 2 % topical ointment 12/07 completed Not Available Not Available Not Available Septra DS 800 mg-160 mg tablet 10/18 completed Not Available Not Available Not Available methylpre dnisolone 4 mg tablets in a dose pack 04/27 completed Not Available Not Available Not Available albuterol sulfate HFA 90 mcg/actua tion aerosol inhaler take two puffs every four hours as needed for wheezing active Not Available Not Available No t Available Vitamin D2 1,250 mcg (50,000 unit) capsule Take 1 capsule every week by oral route. 08/11 completed Not Available Not Available Not Available fluticaso ne propionat e 50 mcg/actua tion nasal spray,anjum pension Inhale 2 sprays every day by intranas al route in the evening. 02/26 completed Not Available Not Available Not Available Bactroban Nasal 2 % ointment Apply to each nostril BID x 2 weeks 12/07 completed Not Available Not Available Not Available amoxicill in 875 mg-potass ium clavulana te 125 mg tablet TAKE 1 TABLET BY MOUTH TWICE DAILY FOR 7 DAYS 08/07 completed Not Available Not Available Not Available amoxicill in 500 mg-potass ium clavulana te 125 mg tablet 08/11 completed Not Available Not Available Not Available enoxapari n 100 mg/mL subcutane ous syringe ADMINIST ER 1 ML UNDER THE SKIN EVERY 12 HOURS 05/03 completed Not Available Not Available Not Available enoxapari n 40 mg/0.4 mL subcutane ous syringe 08/11 completed Not Available Not Available Not Available metaxalon e 800 mg tablet TK 1 T PO TID 04/27 completed stopped on her own. Not Available Not Available Not Available nitrofura ntoin monohydra te/macroc rystals 100 mg capsule TAKE 1 CAPSULE BY MOUTH EVERY 12 HOURS FOR 5 DAYS 05/03 completed Not Available Not Available Not Available Boostrix Tdap 2.5 Lf unit-8 mcg-5 Lf/0.5 mL intramusc ular syringe TO BE ADMINIST ERED BY MARLEN ESPINAL FOR IMMUNIZA TION 09/06 completed Not Available Not Available Not Available Suprep Bowel Prep Kit 17.5 gram-3.13 gram-1.6 gram oral solution 12/07 completed Not Available Not Available Not Available Lumigan 0.01 % eye drops INSTILL 1 DROP IN BOTH EYES AT BEDTIME 11/24 completed Not Available Not Available Not Available Eliquis 5 mg tablet TAKE 1 TABLET BY MOUTH TWICE DAILY active Not Available Not Available No t Available Skyrizi 150 mg/mL subcutane ous pen injector active Not Available Not Available Not Available Vitals Date Recorded Body height Body mass index (BMI) Body weight Body temperature Heart rate Systolic blood pressure Diastolic blood pressure Provider Name and Address Organization Details Last Updated DateTime 3 180.34 cm 38.2 kg/m2 988990. 31 g 97.8 [degF] 92 /min 130 mm[Hg] 82 mm[Hg] CAREN Kay [place] [employer] [facility] [employer] 3 14:08:22 Date Recorded Body height Body mass index (BMI) Body weight Body temperature Heart rate Systolic blood pressure Diastolic blood pressure Provider Name and Address Organization Details Last Updated DateTime 3 180.34 cm 40.2 kg/m2 238081. 6 g 98.2 [degF] 88 /min 136 mm[Hg] 88 mm[Hg] CAREN aKy [place] [employer] [facility] [employer] [facility] 3 16:41:33 Date Recorded Body height Body mass index (BMI) Body weight Body temperature Heart rate Systolic blood pressure Diastolic blood pressure Provider Name and Address Organization Details Last Updated DateTime 3 180.34 cm 40.7 kg/m2 451655. 97 g 97.5 [degF] 82 /min 126 mm[Hg] 80 mm[Hg] Valery abdi RN [facility] [employer] 3 15:53:56 Date Recorded Body mass index (BMI) Body mass index (BMI) Body height Body height Heart rate Body temperature Body weight Body weight Systolic blood pressure Diastolic blood pressure Provider Name and Address Organization Details Last Updated DateTime 3 38.9 kg/m2 38.9 kg/m2 180.34 cm 180.34 cm 83 /min 98 [degF] 199830. 27 g 600302. 27 g 130 mm[Hg] 88 mm[Hg] Not Available [facility] 3 02:54:50 Social History Question Answer Notes LastModified by Organization Details LastModified Time Tobacco Smoking Status Former Smoker quit 01/19/21 CAREN Veloz, SLADE Del Toro [place] [employer] 03/24/2023 15:34:59 Do You Have An Advance Directive? No [id number] Information not available 09/15/2022 What Is Your Level Of Alcohol Consumption? None [id number] Information not available 09/15/2022 What Is Your Level Of Caffeine Consumption? Moderate [id number] Information not available 09/15/2022 How Much Tobacco Do You Chew? None [id number] Information not available 09/15/2022 In The 14 Days Before Symptom Onset, Have You Had Close Contact With A Laboratory-confi rmed COVID-19 While That Case Was Ill? No Information not available 03/24/2023 In The 14 Days Before Symptom Onset, Have You Had Close Contact With A Person Who Is Under Investigation For COVID-19 While That Person Was Ill? No Information not available 03/24/2023 What Type Of Diet Are You Following? REGULAR [id number] Information not available 09/15/2022 Which Illicit Or Recreational Drugs Have You Used? None Information not available 03/24/2023 Do You Or Have You Ever Used E-cigarettes Or Vape? Never Used Electronic Cigarettes Information not available 03/24/2023 What Is The Highest Grade Or Level Of School You Have Completed Or The Highest Degree You Have Received? 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 No Information not available 03/24/2023 What Is The Fluoride Status Of Your Home? Unknown Information not available 03/24/2023 When Did You Quit Smoking? 1-5yearssincelastci francesco Information not available 03/24/2023 Are There Any Guns Present In Your Home? Yes Information not available 03/24/2023 Do You Use Insect Repellent Routinely? No Information not available 03/24/2023 Where Do You Live? SingleLevelHouse Information not available 03/24/2023 Do You Have A Medical Power Of Eddy Current Inspector? No Information not available 03/24/2023 What Was The Date Of Your Most Recent Tobacco Screening? 03/24/2023 [email or web address] Information not available 03/24/2023 Do You Have Any Pets? No Information not available 03/24/2023 What Is Your Relationship Status? [id number] Information not available 09/15/2022 Do You Use Your Seat Belt Or Car Seat Routinely? Yes Information not available 03/24/2023 Do You Have Smoke And Carbon Monoxide Detectors In Your Home? Yes Information not available 03/24/2023 At What Age Did You Start Smoking Tobacco? 16 Information not available 03/24/2023 Are You Passively Exposed To Smoke? No Information not available 03/24/2023 Do You Or Have You Ever Used Smokeless Tobacco? Never Used Smokeless Tobacco [id number] Information not available 09/15/2022 Are There Any Smokers In Your House? No Information not available 03/24/2023 How Much Tobacco Do You Smoke? No Was 1/2- 3/4 Ppd [id number] Information not available 09/15/2022 What Types Of Sporting Activities Do You Participate In? None Information not available 03/24/2023 Do You Feel Stressed (tense, Restless, Nervous, Or Anxious, Or Unable To Sleep At Night)? [id number] Information not available 03/24/2023 Do You Use Any Illicit Or Recreational Drugs? No Information not available 03/24/2023 Do You Use Sunscreen Routinely? Yes Information not available 03/24/2023 Has Tobacco Cessation Counseling Been Provided? No Information not available 03/24/2023 Have You Recently Traveled Abroad? No Information not available 03/24/2023 Do You Have Any Dietary Restrictions? No Information not available 03/24/2023 Do You Or Have You Ever Used Any Other Forms Of Tobacco Or Nicotine? No Information not available 03/24/2023 Sex: Female Functional Status Question Answer Note LastModified by Organizat ion Details LastModified Time What is your exercise level? None [id number] Information not available 09/15/2022 Mental Status None recorded. Family History Relationship Description Onset Age of this Age Resolved Age Notes LastModified by Organization Details LastModified Time Mother Hypertensive disorder [id number] Not available 09/15/2022 02:51:47 Father Diabetes mellitus Grands on Type 1 Diabet es [id number] Not available 09/15/2022 02:51:47 Father Dementia [email or web address] Not available 0 03/24/2023 15:34:58 Mother Dementia 82 [email or web address] Not available 0 03/24/2023 15:34:59 Medical History Condition Response NERVE DISEASE N BLINDNESS N RHEUMATIC FEVER N KIDNEY STONES N BLADDER PROBLEMS N MRSA N OTHER # 1 N POLIO N LUNG DISEASE/DISORDER N RADIATION / CHEMOTHERAPY N COPD N Other # 2 N BLOOD DISEASES N SURGERY N EAR OR HEARING PROBLEMS N MUMPS N BOWEL PROBLEMS N DEPRESSION (INCLUDING POST ) N STROKE/TIA N ULCERS N BENIGN PROSTATIC HYPERPLASIA N MEASLES N MYOCARDIAL INFARCTION N OBESITY N GERD/NAUSEA N ANEURYSM N URINARY/BLADDER/KIDNEY PROBLEMS N CORONARY ARTERY DISEASE (CAD) N ADDICTION CONCERNS N Impotence N ENDOMETRIOSIS N USE OF BLOOD THINNERS N SKIN PROBLEMS N GASTROINTESTINAL DISORDER N PERIPHERAL VASCULAR DISEASE N MUSCLE,JOINT OR BONE PROBLEMS N GASTROINTESTINAL BLEEDING N BLOOD CLOTS N ASTHMA N CATARACTS N ERECTILE DYSFUNCTION N VARICOSITIES N GI PROBLEMS N Low Testosterone N INFERTILITY N AIDS/HIV N CHEMOTHERAPY / RADIATION N LIVER DISEASE N MALE HYPOGONADISM N HYPERTENSION Y Deficiency Y ANXIETY DISORDER N BLOOD TRANSFUSION N ANEMIA/BLOOD DISORDER N CHRONIC EAR INFECTIONS N BRONCHITIS Y TUBERCULOSIS N GLAUCOMA N FOOT PROBLEM N DIVERTICULITIS N SLEEP APNEA N CHICKENPOX N INFECTIOUS DISEASE N PROSTATE N HEART ARRHYTHMIA N INSOMNIA N HIGH CHOLESTEROL / HYPERLIPIDEMIA N EYE PROBLEMS N HYPERTHYROIDISM N NEUROLOGICAL PROBLEMS N EDEMA N CHRONIC PAIN SYNDROME N HYPOTHYROIDISM N CONSTIPATION N CAROTID BLOCKAGE N BACK / NECK PROBLEMS N HAVE YOU BEEN HOSPITALIZED OR SEEN IN [facility] ER IN THE PAST YEAR ? N ATHEROSCLEROSIS N BREAST PROBLEMS N DIALYSIS N ECZEMA N OSTEOPOROSIS N ARTHRITIS N APPENDICITIS N DIABETES, TYPE N BAD TEETH N ENT N HEARTBURN / REFLUX N AUTISM SPECTRUM DISORDER (ASD) N HEPATITIS / LIVER DISEASE N GOUT N SLEEP DISORDER N ALZHEIMER'S DISEASE N Brain Problems N DEMENTIA N HERPES N SEIZURES/EPILEPSY N HEADACHES/MIGRAINES N VASCULAR DISEASE N PACEMAKER N Blood Disorder N DIZZINESS N HEART DISEASE/HEART PROBLEMS N KIDNEY DISEASE N MULTIPLE SCLEROSIS N CANCER: SPECIFY N CARDIAC ARRHYTHMIA N ATRIAL FIBRILLATION N Gall Stones N PULMONARY EMBOLISM N AUTOIMMUNE DISEASE N Gynecological HistoryNo gynecological history recorded. Obstetrics History GPAL:G 0 P 0 0 0 0 Immunizations Vaccine Type Date Status Note Provider Nam e and Address Organization Details Recorded Time Influenza, split virus, quadrivalent, PF 05/25/2021 completed Not Available [facility] 4 01:56:39 Past Encounters Encounter ID Performer Location Encounter Start Date Encounter Closed Date Diagnosis/Indication Diagnosis SNOMED-CT Code Diagnosis ICD10 Code Diagnosis Note [id number] [facility] [address] [address] 1 01/20/2021 00:00:00 01/20/2021 21:46:10 [id number] [facility] [address] [address] 1 02/05/2021 00:00:00 02/07/2021 22:17:28 [id number] [facility] [address] [address] 1 04/17/2021 00:00:00 04/18/2021 12:13:37 [id number] [facility] [address] [address] 1 04/24/2021 00:00:00 05/24/2021 21:40:48 [id number] [facility] [address] [address] 1 05/01/2021 00:00:00 05/02/2021 14:25:24 [id number] _ATHENA_M IGRATION_ DEFAULT_1 _1 , 05/06/2021 00:00:00 05/06/2021 15:03:57 [id number] [facility] [address] [place] [address] Ave[address] [address] 1 05/22/2021 00:00:00 05/22/2021 10:42:41 [id number] [facility] [place] [address] [place] [address] Ave[address] [address] 1 05/28/2021 00:00:00 06/14/2021 12:24:13 [id number] [facility] [address] [place], [place] [address]e., [address] [address] 1 06/04/2021 00:00:00 06/04/2021 22:39:25 [id number] [facility] [address] [address] 1 06/10/2021 00:00:00 06/11/2021 12:10:58 [id number] [facility] [address] [address] 1 08/07/2021 00:00:00 08/07/2021 21:29:39 [id number] [facility] [address] [address] 09/25/2021 00:00:00 11/08/2021 18:11:35 [id number] [facility] [place] [address] [place] [address] 10/08/2021 00:00:00 10/09/2021 08:58:22 [id number] [facility] [place] [address] [place] [address] 10/26/2021 00:00:00 10/26/2021 15:40:03 [id number] [facility] [place] [address] [address] 12/18/2021 00:00:00 01/18/2022 14:27:39 [id number] _ATHENA_M IGRATION_ DEFAULT_1 _1 , 01/15/2022 00:00:00 01/19/2022 10:45:30 [id number] _ATHENA_M IGRATION_ DEFAULT_1 _1 , 01/22/2022 00:00:00 01/24/2022 17:07:08 [id number] _ATHENA_M IGRATION_ DEFAULT_1 _1 , 02/05/2022 00:00:00 02/05/2022 11:28:06 [id number] _ATHENA_M IGRATION_ DEFAULT_1 _1 , 03/05/2022 00:00:00 03/07/2022 15:36:07 [id number] _ATHENA_M IGRATION_ DEFAULT_1 _1 , 04/02/2022 00:00:00 04/02/2022 12:13:44 [id number] [facility] Internal Med [facility] [address] [place] [address] [address] 05/03/2022 00:00:00 05/03/2022 21:09:52 [id number] _ATHENA_M IGRATION_ DEFAULT_1 _1 , 06/04/2022 00:00:00 06/06/2022 14:44:05 [id number] Wanda George MD [facility] [address] [place] [address] [address] 11/24/2022 13:52:40 11/24/2022 15:08:42 Eruption [id number] R21 Essential hypertension [id number] I10 Vitamin D deficiency 347 27435 E55.9 [id number] Wanda George MD S_[facility] Internal Med [facility] [address] [place] [address] [address] 01/10/2023 15:47:42 01/10/2023 17:00:18 Essential hypertension 66239842 I10 Psoriasis 6009190 L40.9 [id number] Wanda George MD [facility] Internal Med [address] [place] [address] 03/24/2023 15:34:40 03/24/2023 16:41:51 Abdominal pain 38793324 R10.9 Weight gain 5878662 R63. 5 Pain in limb 00767751 M7 9.609 Health Concerns Section Related Observation LastModified by Organization Detai ls LastModified Time None Recorded Concern Status LastModified by Organization Details LastModified Time None Recorded Advance Directives Directive N: Payers Encounter Date Sequence Insurance Name Policy Number Policy Cooley Covered Member ID Cooley Member ID Guarantor Name 11/24/2022 1 [place] [id number] Jevon E Amanda [id number] Jevon E Amanda 01/10/2023 1 [place] [id number] Jevon E Amanda [id number] Jevon E Amanda 03/24/2023 1 [place] [id number] Jevon E Amanda [id number] Jevon E Amanda Notes Date Note Type Note Provider Name and Address Organization Details Recorded Time 11/24/2022 text/html Hypertension no headache no dizzinessRash that is now on trunk and on legs after upper respiratory infection about 1-2 weeks ago it does itch Wanda George MD [address] [facility], [place], [address], [address] [facility] [place] 11/24/2022 22:10:29 01/10/2023 text/html Hypertension no headache no dizziness psoriasis being put on immuno regulatory agents Wanda George MD [address], [place], [address], [address] [facility] [place] 01/23/2023 12:11:21 03/24/2023 text/html week or so of epigastric pain and right upper quadrant pain some nausea no vomiting no melena. Pain in in back that radiates down her right arm sometimes no loss of functionWeight gain Wanda George MD [address], [place], [address], [address] [facility] [place] 03/24/2023 22:31:41 OBGyn Episode No OBEpisode recorded.
--- OUTSIDE RECORDS SUMMARY | 2024-08-25 10:06 | XMS_ITS | Clinical Summary ---
Author Organization [facility] Carmela Brewer Address [address] [place] [address] Care Team Providers Care Environmental Engineer Name Role Phone Wilberto George MD Primary Care Provider [phone] Medications lisinopriL (PRINIVIL) 5 mg tablet Take 5 mg by mouth daily. Active enoxaparin (LOVENOX) 100 mg/mL injectionIndication s:Hypertension, unspecified type,Acute deep vein thrombosis (DVT) of proximal vein of left lower extremity (CMS/HCC),Blood clotting tendency,Secondary hypercoagulable state Inject 1 mL (100 mg) by subcutaneous injection every 12 hours. 30 Each 2 08/05/19 Active Active Problems Problem Noted Date Diagnosed Date High blood pressure 05/07/2021 Blood clotting tendency 05/07/2021 Secondary hypercoagulable state 05/07/2021 Family History Relation Name Status Comments Daughter Alive Father Mother Alive Sister Alive Social History Tobacco Use Types Packs/Day Years Used Date Smoking Tobacco: Former Comments Unknown Sex and Gender Information Value Date Recorded Sex Assigned at Not on file Legal Sex Female 3:11 PM CDT Gender Identity Not on file Sexual Orientation Not on file Last Filed Vital Signs Vital Sign Reading Time Taken Comments Blood Pressure 134/87 06/25/2021 3:22 PM LOCOMOTIVE OPERATOR Pulse 92 06/25/2021 3:22 PM LOCOMOTIVE OPERATOR Temperature 36.3 C (97.3 F) 06/25/2021 3:22 PM LOCOMOTIVE OPERATOR Respiratory Rate - - Oxygen Saturation 97% 06/25/2021 3:22 PM LOCOMOTIVE OPERATOR Inhaled Oxygen Concentration - - Weight 103 kg (227 lb) 06/25/2021 3:22 PM LOCOMOTIVE OPERATOR Height 180.3 cm (5' 11 ) 06/25/2021 3:22 PM LOCOMOTIVE OPERATOR Body Mass Index 31.66 06/25/2021 3:22 PM LOCOMOTIVE OPERATOR Plan of Treatment Health Maintenance Due Date Last Done Comments DTAP/TDAP/TD VACCINES (1 - Tdap) 1993 HEPATITIS B VACCINES (1 of 3 - 19+ 3-dose series) 1993 CERVICAL CANCER SCREENING 2004 BREAST CANCER SCREENING 2014 COLORECTAL SCREENING 2019 Colorectal Cancer Screening 2019 FIT-DNA Q 3 years 2019 FIT/FOBT Q 1 year 2019 Flex Sig/CT Colonography Q 5 years 2019 INFLUENZA VACCINE (#1) 2024 05/25/2021 ZOSTER VACCINE (1 of 2) 2024 PNEUMOCOCCAL VACCINE 0-64 YEARS Aged Out No longer eligible based on patient's age to complete this topic Insurance [address] [place] [id number] [employer]/TRUE BLUE PPO Care Teams Environmental Engineer Relationship Specialty Start Date End Date Wilberto George MD [address] [place] [address] PCP - General Internal Medicine 05/07/21
--- OUTSIDE RECORDS SUMMARY | 2024-08-25 10:06 | XMS_ITS | Continuity of Care Document ---
Author Organization [facility] Address [address] [place] [address] [place] [address] Phone Care Team Providers Care Molding Process Technician Name Role Phone Salmeron OD, Christophe Unavailable Unavailable Procedures Procedure Date CL Replacement - [facility] Disp W/BW [facility] Medical Eye Exam & Treatment Refraction CL Replacement - [facility] Other [address] [facility] Advance Directives Directive Yes / No Effective Date File Name No Information Encounters Encounter Description Practice Location Reason(s) For Visit Diagnoses Date Provider Providers Copied on Encounter [facility], [address] [place] [address] [address], [place], [place], [id number], tel:[phone] [facility] No Information 9-200 8 Salmeron OD Christophe. [address] , [address], [place], [place], [facility], . tel:[phone] [facility], [address] [place] [address] [address], [place], [place], [id number], [place] tel:[phone] [facility] No Information 2-200 8 Salmeron OD Christophe. [address], [address], [place], [address], [place]. tel:[phone] [facility], [address] [place] [address] [address], [place], [place], [id number], tel:[phone] [facility] No Information 6-200 7 Salmerno OD Christophe. [address] [facility] [address] , [address], [place], [address], [place]. tel:[phone] Family History Family Member Type Diagnosis Age At Onset No Information Payers Payer name Insurance type Covered libertarian ID Authoriza tion(s) No Information Social History [...]
--- OUTSIDE RECORDS SUMMARY | 2024-08-25 10:06 | XMS_ITS | Clinical Summary ---
Author Organization [facility] Address [address] [place] [address] Care Team Providers Care Rubber Grinder Name Role Phone Yousif Gaines MD, Cristian Unavailable [phone] Garcia Villanueva MD Unavailable [phone] Janine Viveros DO Primary Care Provider [phone] Allergies Active Allergy Reactions Criticality Noted Date [...] needed. Assessment & Plan (09/15/2021 3:49 PM WEB DEVELOPMENT DIRECTOR): Impression: Patient with recent unprovoked DVT [...] recommendations of her primary care physician and pecan cleaner. Patient to follow up on as-needed basis. Abnormal radiographic examination 09/03/2021 Cellulitis 09/03/2021 Abdominal pain 09/03/2021 Epigastric pain 09/03/2021 Essential hypertension 09/03/2021 Assessment & Plan (10/02/2021 12:10 PM CDT): Impression: Chronic stable hypertension, controlled medications. Blood pressure stable this office visit. Plan: Medications reviewed, no changes made. Continue blood pressure management as per primary care provider. Assessment & Plan (09/15/2021 3:49 PM WEB DEVELOPMENT DIRECTOR): Impression: Stable chronic hypertension. Plan: Medications [...] further evaluation. Plan: Will defer recommendations to rn rehab. Immunizations Name Administration Dates Next Due Influenza, Quadrivalent, Split, Intramuscular Influenza, Quadrivalent, Spl it, Preservative Free, Intramuscular 05/25/2021 Surgical History Surgery Date Site/Laterality Comments HYSTERECTOMY 07/18/2014 - 07/17/2015 ABLATION OF AFIB FLUTTER 07/18/2016 - 07/17/2017 KNEE CARTILAGE SURGERY 07/18/2009 - 07/17/2010 Medical History Medical History Date Comments Hypertension Family History Medical History Relation Name Comments Alzheimer's disease Father Tra Palomino Diabetes Father Tra Palomino Neuropathy Father Tra Palom[place] Cancer Maternal Grandmother Ann Polanco Relation Name Status Comments Father Tra Palomino Maternal Grandmother Ann Polanco Mother Alive Sister 1 Kaitlin Alive Sister 2 Monique Alive Social History Tobacco Use Types Packs/Day [...] on file Legal Sex Female 7:41 PM WEB DEVELOPMENT DIRECTOR Gender Identity Not on file Sexual Orientation Not on file Obstetrics History Last Filed Vital Signs Vital Sign Reading Time Taken Comments Blood Pressure 130/85 01/11/2024 3:24 PM CDT Pulse 105 01/11/2024 3:24 PM CDT Temperature 36.7 C (98 F) 09/14/2021 8:52 AM WEB DEVELOPMENT DIRECTOR Respiratory Rate 18 09/14/2021 8:52 AM WEB DEVELOPMENT DIRECTOR Oxygen Saturation 100% 09/14/2021 8:52 AM WEB DEVELOPMENT DIRECTOR Inhaled Oxygen Concentration - - Weight 119.3 kg (263 lb) 01/11/2024 3:24 PM CDT Height 177.8 cm (5' 10 ) 01/11/2024 3:24 PM CDT Body Mass Index 37.74 01/11/2024 3:24 PM CDT Plan of Treatment Health Maintenance Due Date Last Done Comments Breast Cancer Screening-Mammogram 1974 Colon Cancer Screening-Colonoscopy 1974 Depression Screening 1974 Hepatitis C Screening 1974 DTaP/Tdap/Td Vaccine (1 - Tdap) 1985 Hepatitis B Screening 1992 Regular Well Visit/Exam 18-64 1992 Influenza Vaccine (#1) 2024 , 04/28/2020 Zoster Vaccine (1 of 2) 2024 Pneumococcal vaccine <65 Aged Out No longer eligible based on patient's age to complete this topic Insurance [employer] [place] [employer] [place] [place] Care Teams Rubber Grinder Relationship Specialty Start Date End Date Janine Viveros DO [address] [place] [address] [address] [place] [address] PCP - General Family Medicine 01/11/24 Cristian Dodd Jr., MD Medical Oncologist/Canvassing Manager Medical Oncology 07/31/21 Garcia Villanueva MD [address] [place] [address] [address] [facility] [place] [address] Surgeon Surgery 09/02/21
--- OUTSIDE RECORDS SUMMARY | 2024-08-25 10:37 | XMS_ITS | Referral Summary ---
Author Organization [facility] Address [address] [place] [address] Care Team Providers Care Correctional Counselor Name Role Phone Yousif Gaines MD, Cristian Unavailable [phone]- [phone] Garcia Villanueva MD Unavailable [phone] Janine Viveros DO Primary Care Provider [phone] Allergies Active Allergy Reactions Criticality Noted Date [...] needed. Assessment & Plan (09/15/2021 3:49 PM METAL WINDOW FRAME MAKER): Impression: Patient with recent unprovoked DVT of [...] recommendations of her primary care physician and housekeeper nanny. Patient to follow up on as-needed basis. Abnormal radiographic examination 09/03/2021 Cellulitis 09/03/2021 Abdominal pain 09/03/2021 Epigastric pain 09/03/2021 Essential hypertension 09/03/2021 Assessment & Plan (10/02/2021 12:10 PM CDT): Impression: Chronic stable hypertension, controlled medications. Blood pressure stable this office visit. Plan: Medications reviewed, no changes made. Continue blood pressure management as per primary care provider. Assessment & Plan (09/15/2021 3:49 PM METAL WINDOW FRAME MAKER): Impression: Stable chronic hypertension. Plan: Medications reviewed [...] further evaluation. Plan: Will defer recommendations to race car mechanic. Immunizations Name Administration Dates Next Due Influenza, [...] on file Legal Sex Female 7:41 PM METAL WINDOW FRAME MAKER Gender Identity Not on file Sexual Orientation Not on file Last Filed Vital Signs Vital Sign Reading Time Taken Comments Blood Pressure 130/85 01/11/2024 3:24 PM CDT Pulse 105 01/11/2024 3:24 PM CDT Temperature 36.7 C (98 F) 09/14/2021 8:52 AM METAL WINDOW FRAME MAKER Respiratory Rate 18 09/14/2021 8:52 AM METAL WINDOW FRAME MAKER Oxygen Saturation 100% 09/14/2021 8:52 AM METAL WINDOW FRAME MAKER Inhaled Oxygen Concentration - - Weight 119.3 kg (263 lb) 01/11/2024 3:24 PM CDT Height 177.8 cm (5' 10 ) 01/11/2024 3:24 PM CDT Body Mass Index 37.74 01/11/2024 3:24 PM CDT Plan of Treatment Not on file Insurance [facility] [address] [place] [facility] [address] [place] [facility] [address] [place] Care Teams Correctional Counselor Relationship Specialty Start Date End Date Vernacjhonatan Janine Hinton DO [address] [place] [address] [address] [place] [address] PCP - General Family Medicine 01/11/24 Cristian Dodd Jr., MD Medical Oncologist/Wire Taper Medical Oncology 07/31/21 Garcia Villanueva MD [facility] [address] [place] [address] Surgeon Surgery 09/02/21
--- OUTSIDE RECORDS SUMMARY | 2024-08-25 10:37 | XMS_ITS | Continuity of Care Document ---
Author Organization [facility] Address [address] [place] [address] Phone Care Team Providers Care Tests Superintendent Name Role Phone Servando Taveras MD Unavailable Unavailable Procedures Procedure Date Office/outpatient visit,[facility] 2008 Postop followup visit Postop followup visit Manipulate knee joint, gen'l anesth Drain/inject major jointor bursa 2008 Office/outpatient visit,new, [facility] 2008 X-ray exam of knee, 3 views Advance Directives Directive Yes / No Effective Date File Name No Information Encounters Encounter Description Practice Location Reason(s) For Visit Diagnoses Date Provider Providers Copied on Encounter Office/outpat ient visit,[facility], [facility], [address], [id number], [place] [phone] [facility] No Information 9 Nitin Al. [address] [facility], [address], [id number] , [place]. tel: [phone] [facility], [address], [id number], [place] [phone] [facility] No Information 0200 9 Nitin Al[address] [facility], [address], [id number] , [place]. tel: [phone] [facility], [address] [facility] [address], [place], [id number], tel:[phone] [facility] No Information 0 9 Nitin Al. [address] [facility], [address], [place], [place], [id number] , [place]. tel: [phone] [facility] [employer] [facility], [address] [facility] [address], [place], [place], [id number], [place] tel:[phone] [facility] No Information 9 Nitin Al. [address] [facility], [facility], [place], [place], [id number] , [place]. tel: [phone] Office/outpat ient visit,[facility], [address], [id number], [phone] [facility] No Information 9 Nitin Al. [address] [facility], [facility] [address], [place], [place], [id number] , [place]. tel: [phone] Family History Family Member Type Diagnosis Age At Onset No Information Payers Payer name Insurance type Covered democrat ID Rosie loo(s) [facility] [id number] Social History Type Description Quantity Date Captured [...]
--- OUTSIDE RECORDS SUMMARY | 2024-08-25 10:37 | XMS_ITS | Clinical Summary ---
Author Organization [facility] Address [address] [place] [address] Care Team Providers Care Meringuer Name Role Phone Unavailable Primary Care Provider [...]
--- OUTSIDE RECORDS SUMMARY | 2024-08-25 10:38 | XMS_ITS | Clinical Summary ---
Author Organization [facility] Address [address] [place] [address] Care Team Providers Care Fire Systems Inspector Name Role Phone Yousif Gaines MD, Cristian Unavailable [phone]- [phone] Garcia Villanueva MD Unavailable [phone] Janine Viveros DO Primary Care Provider [phone] Allergies Active Allergy Reactions Criticality Noted Date [...] needed. Assessment & Plan (09/15/2021 3:49 PM MASTER COSMETOLOGIST): Impression: Patient with recent unprovoked DVT of [...] recommendations of her primary care physician and door to door selling agent. Patient to follow up on as-needed basis. Abnormal radiographic examination 09/03/2021 Cellulitis 09/03/2021 Abdominal pain 09/03/2021 Epigastric pain 09/03/2021 Essential hypertension 09/03/2021 Assessment & Plan (10/02/2021 12:10 PM CDT): Impression: Chronic stable hypertension, controlled medications. Blood pressure stable this office visit. Plan: Medications reviewed, no changes made. Continue blood pressure management as per primary care provider. Assessment & Plan (09/15/2021 3:49 PM MASTER COSMETOLOGIST): Impression: Stable chronic hypertension. Plan: Medications reviewed [...] further evaluation. Plan: Will defer recommendations to supervisor boarding. Immunizations Name Administration Dates Next Due Influenza, [...] on file Legal Sex Female 7:41 PM MASTER COSMETOLOGIST Gender Identity Not on file Sexual Orientation Not on file Obstetrics History Last Filed Vital Signs Vital Sign Reading Time Taken Comments Blood Pressure 130/85 01/11/2024 3:24 PM CDT Pulse 105 01/11/2024 3:24 PM CDT Temperature 36.7 C (98 F) 09/14/2021 8:52 AM MASTER COSMETOLOGIST Respiratory Rate 18 09/14/2021 8:52 AM MASTER COSMETOLOGIST Oxygen Saturation 100% 09/14/2021 8:52 AM MASTER COSMETOLOGIST Inhaled Oxygen Concentration - - Weight 119.3 [...] patient's age to complete this topic Insurance [employer] [place] [place] [employer] [place] Care Teams Fire Systems Inspector Relationship Specialty Start Date End Date Janine Viveros DO [address] [place] [address] [address] [place] [address] PCP - General Family Medicine 01/11/24 Cristian Dodd Jr., MD Medical Oncologist/Diesel Engine Tester Medical Oncology 07/31/21 Garcia Villanueva MD [address] [place] [address] [address] [facility] [place] [address] Surgeon Surgery 09/02/21
--- OUTSIDE RECORDS SUMMARY | 2024-08-25 10:38 | XMS_ITS | Clinical Summary ---
Author Organization [facility] Carmela Brewer Address [address] [place] [address] Care Team Providers Care Pre Sales Systems Engineer Name Role Phone Wilberto George MD Primary Care Provider [phone] Medications lisinopriL (PRINIVIL) 5 mg tablet Take [...] Comments Blood Pressure 134/87 06/25/2021 3:22 PM EGG SEPARATOR Pulse 92 06/25/2021 3:22 PM EGG SEPARATOR Temperature 36.3 C (97.3 F) 06/25/2021 3:22 PM EGG SEPARATOR Respiratory Rate - - Oxygen Saturation 97% 06/25/2021 3:22 PM EGG SEPARATOR Inhaled Oxygen Concentration - - Weight 103 kg (227 lb) 06/25/2021 3:22 PM EGG SEPARATOR Height 180.3 cm (5' 11 ) 06/25/2021 3:22 PM EGG SEPARATOR Body Mass Index 31.66 06/25/2021 3:22 PM EGG SEPARATOR Plan of Treatment Health Maintenance Due Date [...] patient's age to complete this topic [place] [address] [place] [address] [employer]/TRUE BLUE PPO Care Teams Pre Sales Systems Engineer Relationship Specialty Start Date End Date Wilberto George MD [address] [place] [address] PCP - General Internal Medicine 05/07/21
--- OUTSIDE RECORDS SUMMARY | 2024-08-25 10:38 | XMS_ITS | CONTINUITY OF CARE DOCUMENT ---
Author Name margaritasharon margaritasharon Address Unknown Organization [facility] Address [address] [address] [place] [address] Phone [phone] Care Team Providers Care Committee Member Name Role Phone Kenyetta ELIAS, Mirza Unavailable [phone] AMY ELIAS, APOLINAR Abdi Unavailable Jose ZHOU MD, WANDA [place] Unavailable [phone] PROBLEMS Condition Status Date Provider Notes VENTRICULAR [...] In-person encounter Office Visit Mirza Kumari MD [facility] Intermittent palpitations - In-person encounter Office Visit iMrza Kumari MD [place] [facility] SHORTNESS OF BREATHCHEST PAIN-TYPE TO BE DETERMINED - In-person encounter Office Visit Mirza Kumari MD [place] [facility] - In-person encounter Office Visit Mirza Kumari MD [place] [facility] LEG PAIN - In-person encounter Office Visit Mirza Kumari MD [place] [facility] VENTRICULAR ARRHYTHMIAOBESITYDVT VITAL SIGNS Date Observation Value Provider Body Mass Index (Ratio) 31.13 kg/m2 Kd Alcantara blood pressure, cuff size regular Cy sergei Virgen blood pressure, diastolic 70 mm[Hg] Cy sergei Virgen blood pressure, systolic 122 mm[Hg] Maria T Virgen oxygen saturation, oximetry 98 % Torri Virgen respiratory rate E&M 16 /min Torri Virgen pulse rate 92 /min Torri badi weight E&M 217 [lb_av] Torri abdi height [...] 1 prothrombin time (patient) 19.3 s Luis Vangeas RN 1 international normalized ratio (INR) 1.9 Luis Vanegas RN Normal 5 coagulation managed by Luis Vanegas RN 5 prothrombin time (patient) 21.9 s Luis Vanegas RN 5 international normalized ratio (INR) 2.2 [...] Pablo lashanda is a former smoker. Jonathan Alcantraa social history reviewed E&M revi ewed - [...] Payer name Policy type / Coverage type [place] red republican ID [facility] [id number] ADVANCE DIRECTIVES Name Date DISCUSSED - NO DECISION MADE TREATMENT PLAN Date Name Performer Electrophysiology New Patient Brigida Alcantara Electrophysiology Ne w Patient : H er updated medication list for this problem includes: Lisinopril 5 Mg Oral Tablet (Lisinopril) ..... Take 1 tab daily Orders: 9 9205 HIGH Complex (CPT-48645) M obile Cardiac Tele (CPT-17824) C OMPREHENSIVE METABOLIC PANEL, W/EGFR (30255) C BC (INCLUDES DIFF/PLT) (6399) T HYROID PANEL WITH TSH, 3RD GENERATION (7444) M AGNESIUM (622) H olter Monitor 48 hr (CPT-23757) Jonathan Alcantara Electrophysiology Ne w Patient : [...] Complete Echo Mobile Cardiac Tele DLCO - 74993 FRC - 26249 FVC - 78555 Spirometry Mobile Cardiac Tele Holter Monitor 24 [...] for Dr. LEE forpopliteal vein insufficiency at [facility] office f u with SK in 6 month completed EKG Mirza avila MD completed Schedule Followup Mirza king MD fu in 1 week completed EKG Mirza avila MD completed Schedule Followup Mirza king MD in 3 weeks completed EKG Mirza avila MD completed
--- OUTSIDE RECORDS SUMMARY | 2024-08-25 10:38 | XMS_ITS | Continuity of Care Document ---
Author Organization [facility] Address [address] [place] [address] [place] [address] Phone Care Team Providers Care Ranch Helper Name Role Phone Salmeron OD, Christophe Unavailable Unavailable Procedures Procedure Date CL Replacement - Vistakon Disp W/BW Soft [facility] Eye Exam & Treatment Refraction CL Replacement - Vistakon Other [address] [employer] [facility] Advance Directives Directive Yes / No Effective Date File Name No Information Encounters Encounter Description Practice Location Reason(s) For Visit Diagnoses Date Provider Providers Copied on Encounter [facility], [address] [place] [address] [address], [place], [place], [id number], tel:[phone] [facility] No Information 9-200 8 Salmeron OD Chrsitophe. [address] , [address], [place], [place], [facility], . tel:[phone] [facility], [address] [place] [address] [address], [place], [place], [id number], [place] tel:[phone] [facility] No Information 2-200 8 Salmeron OD Christophe. [address] [facility] [address], [place], [address], [place]. tel:[phone] [facility], [address] [place] [address] [address], [place], [place], [id number], tel:[phone] [facility] No Information 6-200 7 Salmeron OD Christophe. [address] , [address], [place], [address], [place]. tel:[phone] Family History Family Member Type Diagnosis Age At Onset No Information Payers Payer name Insurance type Covered constitution party ID Authoriza tion(s) No Information Social [...]
--- NOTE | 2024-08-25 10:41 | ED.URI ---
HPI - URI/Sore Throat General Chief Complaint: Upper Respiratory Infection Stated Complaint: flu like s/s since , Time Seen by Provider: 08/25/24 10:28 History of Present Illness HPI Narrative: 49-year-old female with past medical history including hypertension, psoriatic arthritis, atrial fibrillation status post ablation, previous provoked DVT and PE currently off anticoagulation. Patient presents to the emergency room with complaint of a migraine headache located left-sided her head, stabbing and constant sensation for last few days. Previous to that she had a upper respiratory infection flu-like symptoms since Tuesday proximal 5 days prior. Previous that she was in her normal state of health. Endorses a nauseous sensation with her headache, no vision changes or vomiting. No chest pain difficulty breathing. No back pain or injury. No fall. Does not take any blood thinners at this time. No history of migraines, does not regularly get headaches either. Takes Tylenol with the headache without any significant relief. Related Data Allergies Allergy/AdvReac Type Severity Reaction Status Date / Time Sulfa (Sulfonamide Allergy Rash Verified 08/25/24 10:22 Antibiotics) Review of Systems Review of Systems: As reviewed above in HPI [facility] Past Medical History Medical History Psoriatic arthritis GERD (gastroesophageal reflux disease) Hypertension DVT (deep venous thrombosis) Pulmonary embolus Surgical History Surgical History History of cardiac radiofrequency ablation (RFA) H/O knee surgery H/O: hysterectomy History of ankle surgery History of arthroscopy of right knee developed RSD postop - went through pain management Family History Family History Father Diabetes mellitus Sibling Asthma Mother Hypertension Grandparent Cerebrovascular accident Pancreas cancer Social History Social History Social History: Caffeine-coffee Smoking packs per day: 0.5 Smoking cigarettes per day: 10.0 Years smoked: 25 Smoking pack-years: 12.50 Smoking status: Former smoker Tobacco type: cigarettes Smoking end date: 07/18/18 Additional smoking assessment comments: Patient advised to discontinue smoking given her history of pulmonary embol Alcohol intake: never Substance use: never Substance use type: does not use Do You Feel Safe in your Home?: Yes Lack of Transportation: No Lack of Food: Never True Current Housing: I Have Housing Concerned About Future Housing: No Difficulty Paying Gas/Electric Bills: No Difficulty Paying for Meds: No Currently Unemployed: No Education: High School Diploma/GED Difficulty w/ Childcare or Family Care: No Living arrangements: with family Gender identity (if verbalized by the patient): Female Spiritual care concerns: No Exam Narrative: GENERAL: [Well-appearing, well-nourished, and in no acute distress.] HEAD: [Normocephalic, atraumatic.] EYES: [PERRLA and EOMI.] ENT: Nares clear, no rhinorrhea or epistaxis. Mucous membranes moist. NECK: Supple. CHEST: [Clear to auscultation. No respiratory distress.] HEART: [Regular rate and rhythm]. No murmur heard. [Normal peripheral pulses.] ABDOMEN: [Soft, nondistended], [nontender], [No rigidity or guarding] EXTREMITIES: Normal range of motion. [No edema.] SKIN: Warm, dry, no rash. NEURO: [No focal deficits]. Alert and oriented [x3.] PSYCH: [Normal mood and affect.] Course Vital Signs Vital signs: Vital Signs Temperature 36.5 C 08/25/24 10:18 Pulse Rate 81 08/25/24 10:18 Respiratory Rate 20 08/25/24 10:18 Blood Pressure 138/99 H 08/25/24 10:18 Pulse Oximetry 100 08/25/24 10:18 Oxygen Delivery Room Air 08/25/24 10:18 Temperature 36.5 C 08/25/24 10:18 Pulse Rate 81 08/25/24 10:18 Respiratory Rate 20 08/25/24 10:18 Blood Pressure 158/94 H 08/25/24 11:16 Pulse Oximetry 97 08/25/24 11:31 Oxygen Delivery Room Air 08/25/24 11:05 MDM - URI/Sore Throat MDM Narrative Medical decision making narrative: 49-year-old female with history of hypertension, psoriatic arthritis, AFib status post ablation, previous DVT and PE not on AC. Presents with a migraine headache in the left side of her head that is throbbing, stabbing, constant for last few days. Previous flu-like symptoms provoking this. Denies any vision changes but tore some nausea. She has no weakness under neurological examination otherwise is well appearing, not uncomfortable, vital signs are within normal limits without any tachycardia, fever, hypoxia significant blood pressure elevations. Concern presently is for migraine headache versus tension headache versus sinus headache. She did have flu-like symptoms previously but these are mostly resolved. Low suspicion for intracranial process such as a bleed or infarct. Laboratory studies were obtained including CBC, CMP and a CT of the head was obtained. She was treated with a combination of medications including Compazine, diphenhydramine, normal saline bolus, magnesium and Decadron for migraine prophylaxis. Workup shows no leukocytosis or anemia. CT of the head shows no acute intracranial process. Electrolytes within normal limits, normal renal and hepatic function panel. Negative viral panel. Patient was re-evaluated after migraine cocktail and had improvement and resolution of her headache. We went over the unremarkable workup today and her likely tension versus migraine headache and her recent URI likely being the trigger. She is safe and stable for discharge with regular PCP follow-up. Patient was provided return precautions as well. Medical Records Attestation: I reviewed the patient's medical records. Lab Data Attestation: I reviewed the patient's lab results. 08/25/24 10:58 08/25/24 10:58 Labs: Lab Results 08/25/24 08/25/24 Range/Units 10:31 10:58 WBC 5.9 (4.5-10.0) K/mm3 RBC 4.76 (4.2-5.4) M/mm3 Hgb 15.0 (12.0-15.0) g/dL Hct 42.8 (37.0-47.0) % MCV 89.9 (80-100) fl MCH 31.5 (26-34) pg MCHC 35.0 (32-36) g/dl RDW 12.2 (11.5-14.5) % Plt Count 200 (150-375) k/mm3 MPV 9.1 (7.4-10.4) fl Immature Gran % (Auto) 0.3 (0-0.5) % Neut % (Auto) 51.3 (45.5-73.1) % Lymph % (Auto) 37.4 (18.3-44.2) % [place] % (Auto) 7.2 (2.6-8.5) % Eos % (Auto) 3.1 (0-4.4) % Baso % (Auto) 0.7 (0.2-1.2) % Lymph # (Auto) 2.19 (0.9-3.2) K/mm3 [place] # (Auto) 0.4 (0.1-0.6) K/mm3 Eos # (Auto) 0.2 (0-0.3) K/mm3 Baso # (Auto) 0.0 (0.0-0.1) K/mm3 Abs Immat Gran (auto) 0.02 (0.00-0.031) K/mm3 Absolute Neuts (auto) 3.0 (1.3-6.7) K/mm3 Absolute Nucleated RBC 0.000 (0.0-0.012) K/mm3 Nucleated RBC % 0.0 (0.0-0.2) % Sodium 138 (137-145) mmol/L Potassium 3.7 (3.4-5.0) mmol/L Chloride 104 (98-107) mmol/L Carbon Dioxide 25 (22-30) mmol/L Anion Gap 9 (4-12) mmol/L BUN 12 D (7-17) mg/dL Creatinine 0.75 (0.7-1.0) mg/dL Estim Creat Clear Calc 87 ml/min Estimated GFR > 60 (59 - ) Glucose 87 (65-110) mg/dL Calcium 9.2 (8.4-10.2) mg/dL Total Bilirubin 1.5 H (0.2-1.3) mg/dL AST 25 (14-36) U/L ALT 25 (6-35) U/L Alkaline Phosphatase 88 (38-126) U/L Total Protein 7.0 (6.3-8.2) g/dL Albumin 4.0 (3.5-5.1) g/dL Influenza A (RT-PCR) Negative (Negative) Influenza B (RT-PCR) Negative (Negative) RSV (RT-PCR) Negative (Negative) SARS-CoV-2 RNA (RT-PCR) Negative (Negative) Imaging Data Attestation: I personally reviewed and interpreted this imaging study as follows: My impression: Impressions Head CT 08/25/24 11:36 IMPRESSION: 1. Mild nonspecific cerebral white matter disease, which likely represents chronic small vessel ischemic disease. Discharge Plan Discharge Clinical Impression: Migraine headache without aura, Acute viral syndrome Patient Disposition: Home, Self-Care Condition: Stable Instructions: Antibiotic Form, Migraine Headache (ED), Acute Headache (DC) Additional Instructions: Follow-up with regular doctor. Your workup was very reassuring, CT scan shows no acute process, lab showed no dehydration or injury to the organs. We gave you some long-acting medications to help prevent a recurrence of your migraine. Return with any new or worsening concerns at any time. Patient Language: Upper Sorbian Prescriptions: No Action (DME) blood-glucose meter [Accu-Chek Guide Glucose Meter] Misc See Rx Instructions .ROUTE .MEDSUPPLY Qty: 1 0RF Rx Instructions: once a day omeprazole 40 mg capsule,delayed release(DR/EC) 40 mg PO DAILY Qty: 30 11RF lisinopril 10 mg tablet 10 mg PO HS Qty: 90 1RF (DME) Accu-Chek Guide test strips Strip See Rx Instructions .ROUTE .MEDSUPPLY Qty: 200 0RF Rx Instructions: once daily Mounjaro 15 mg/0.5 mL pen injector 15 mg subcut WEEKLY Qty: 6 1RF Follow-up/Referrals: Janine Viveros DO [Primary Care Provider] - Time of Disposition: 12:58
[2024-08-25 11:03] LABS: Basophils Percent Auto 0.7 % (0.2-1.2); Eosinophils Absolute Auto 0.2 K/mm3 (0-0.3); Eosinophils Percent Auto 3.1 % (0-4.4); Hematocrit 42.8 % (37.0-47.0); Immature Granulocyte Absolute 0.02 K/mm3 (0.00-0.031); Immature Granulocyte Percent A 0.3 % (0-0.5); Lymphocytes Absolute Auto 2.19 K/mm3 (0.9-3.2); Lymphocytes Percent Auto 37.4 % (18.3-44.2); Mean Corpuscular Hemoglobin 31.5 pg (26-34); Mean Corpuscular Volume 89.9 fl (80-100); Mean Platelet Volume 9.1 fl (7.4-10.4); Monocytes Absolute Auto 0.4 K/mm3 (0.1-0.6); Monocytes Percent Auto 7.2 % (2.6-8.5); Neutrophils Percent Auto 51.3 % (45.5-73.1); Platelet Count Result 200 k/mm3 (150-375); Red Blood Count 4.76 M/mm3 (4.2-5.4); Red Cell Distribution Width 12.2 % (11.5-14.5); White Blood Count 5.9 K/mm3 (4.5-10.0)
[2024-08-25 11:12] LABS: Influenza A QL RT-PCR Negative (Negative); Influenza B QL RT-PCR Negative (Negative); RSV RNA, RT-PCR Negative (Negative); SARS-CoV-2 RNA PCR Negative (Negative)
[2024-08-25 11:13] LABS: Alanine Aminotransferase 25 U/L (6-35); Alkaline Phosphatase 88 U/L (38-126); Anion Gap 9 mmol/L (4-12); Aspartate Amino Transferase 25 U/L (14-36); Bilirubin,Total 1.5 mg/dL (0.2-1.3); Blood Urea Nitrogen 12 mg/dL (7-17); Calcium 9.2 mg/dL (8.4-10.2); Carbon Dioxide 25 mmol/L (22-30); Chloride 104 mmol/L (98-107); Estimated CRCL calculation 87 ml/min; Estimated Glomerular Filt Rate > 60; Glucose 87 mg/dL (65-110); Potassium 3.7 mmol/L (3.4-5.0); Sodium 138 mmol/L (137-145)
[2024-08-25] MEDS: MAGNESIUM SULF 2 GM/WATER 50ML 2 GM/50 ML BAG IVPB (11:50)
[2024-08-25] MEDS: diphenhydrAMINE HCl INJ 50 MG/ML VIAL 25 MG IV PUSH (11:51)
[2024-08-25] MEDS: PROCHLORPERAZINE EDISYLATE 10 MG/2 ML VIAL IV PUSH (11:51)
[2024-08-25] MEDS: SODIUM CHLORIDE 0.9% IV 1,000 ML 999 ML IV CONT (11:51)
[2024-08-25] MEDS: dexAMETHasone SOD PHOS INJ 10 MG/ML 1 ML VIAL IV PUSH (11:52)
== END 2024-08-25 13:57 | disposition home or self-care (01) ==
PROVIDERS: Emergency Medicine; Emergency Provider Student in an Organized Health Care Education/Training Program; PCP Family Medicine
DX: G43.909 Migraine, unspecified, not intractable, without status migrainosus (principal); B34.9 Viral infection, unspecified; Z20.822 Contact with and (suspected) exposure to COVID-19; I10 Essential (primary) hypertension; L40.50 Arthropathic psoriasis, unspecified; K21.9 Gastro-esophageal reflux disease without esophagitis; Z86.718 Personal history of other venous thrombosis and embolism; Z86.711 Personal history of pulmonary embolism; Z87.891 Personal history of nicotine dependence; Z90.710 Acquired absence of both cervix and uterus; Z79.85 Long-term (current) use of injectable non-insulin antidiabetic drugs; Z79.899 Other long term (current) drug therapy; R90.82 White matter disease, unspecified
CPT/HCPCS: 36415; 70450; 80053; 85025; 87637; 96365; 96366; 96375; 99284; J0780; J1100; J1200; J3475; J7030

== ENCOUNTER 2024-09-03 15:21 | Outpatient (CLI) | payer BC, SELFPAY ==
--- NOTE | ~2024-09-03 | XR_ITS ---
EXAM: XR shoulder LT min 2V, XR elbow LT 2V, XR humerus LT DATE: 09/03/2024 15:38 HISTORY: M25.512 - Pain in left shoulder, upper left arm, and elbow. COMPARISON: None available. FINDINGS: Normal mineralization. No fracture or dislocation. No lytic or blastic lesion. Mild degene rative change at the AC joint. Mild degenerative change at the elbow joint. No erosion or periosteal change. Soft tissues within normal limits. 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 Reviewed, dictated and finalized at location K. 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
== END 2024-09-03 15:22 | disposition home or self-care (01) ==
PROVIDERS: PCP Nurse Practitioner; Visit Provider Nurse Practitioner
DX: M19.022 Primary osteoarthritis, left elbow (principal); M19.012 Primary osteoarthritis, left shoulder
CPT/HCPCS: 73030; 73060; 73070

== ENCOUNTER 2025-03-11 07:42 | Emergency (ER) | payer OTHER, BC, SELFPAY ==
--- OUTSIDE RECORDS SUMMARY | 2007-11-24 11:04 | XMS_ITS | Continuity of Care Document ---
Author Organization [facility] [place] [address] [place] [address] [place] [address] Phone Care Team Providers Care Electronic Equipment Maint Tech Name Role Phone Salmeron OD, Christophe Unavailable Unavailable Procedures Procedure Date CL Replacement - [facility] Disp W/BW Soft [facility] Medical Eye Exam & Treatment Refraction CL Replacement - [facility] Other 007 Mobile[employer] [facility] Advance Directives Directive Yes / No Effective Date File Name No Information Encounters Encounter Description Practice Location Reason(s) For Visit Diagnoses Date Provider Providers Copied on Encounter [facility], [address] [place] [address] [address], [place], [place], [id number], tel:[phone] SEC [facility] No Information 9-200 8 Salmeron OD Christophe. [address] [facility] [address] , [address], [place], [place], [facility] [place], . tel:[phone] [facility], [address] [place] [address] [address], [place], [place], [id number], [place] tel:[phone] SEC [facility] No Information 2-200 8 Salmeron OD Christophe. [address] [facility] [address], [address], [place], [address], [place]. tel:[phone] [facility], [address] [place] [address] [address], [place], [place], [id number], tel:[phone] SEC [facility] No Information 6-200 7 Salmeron OD Christophe. [address] [facility] , [address], [place], [address], [place]. tel:[phone] Family History Family Member Type Diagnosis Age At Onset No Information Payers Payer name Insurance type Covered green party ID Authoriza tion(s) No Information Social History Type Description Quantity Date Captured Comments Sex Female Smoking Status No Information Chief Complaint And Reason For Visit No Information Reason For Referral Reason For Referral No Information History Of Present Illness Encounter Date Complaint History Of Prese nt Illness No Information Functional Status Date Functional Assessmen t No Information Instructions Date Instruction Additional Infor mation No Information Assessments Type Assessment Date No Information Patient Care Teams Name Effective Dates (start - stop) Status Members No Information
--- OUTSIDE RECORDS SUMMARY | 2009-05-21 11:10 | XMS_ITS | Continuity of Care Document ---
Author Organization [facility] Address [address] [place] [address] Phone Care Team Providers Care Pile Driver Operator Name Role Phone Servando Taveras MD Unavailable Unavailable Procedures Procedure Date Office/outpatient visit,[facility] 2008 Postop followup visit Postop followup visit Manipulate knee joint, gen'l anesth Drain/inject major jointor bursa 2008 Office/outpatient visit,new, mod 2008 X-ray exam of knee, 3 views Advance Directives Directive Yes / No Effective Date File Name No Information Encounters Encounter Description Practice Location Reason(s) For Visit Diagnoses Date Provider Providers Copied on Encounter Office/outpat ient visit,[facility], [address], [id number], [place] [phone] [facility] No Information 9 Nitin Al. [address] [facility], [address], [id number] , [place]. tel: [phone] [facility], [address], [id number], [place] [phone] [facility] No Information 0200 9 Nitin Al. [address] [facility], [address], [id number] , [place]. tel: [phone] [facility], [address] [facility] [address], [place], [id number], tel:[phone] [facility] No Information 0 9 Nitin Al. [address] [facility], [address], [place], [place], [id number] , [place]. tel: [phone] [facility], [address] [facility] [address], [place], [place], [id number], [place] tel:[phone] [facility] No Information 9 Nitin Al. [address] [facility], [address], [place], [place], [id number] , [place]. tel: [phone] Office/outpat ient visit,[facility], [address], [id number], [phone] [facility] No Information 9 Nitin Al. [address] [facility], [address], [place], [place], [id number] , [place]. tel: [phone] Family History Family Member Type Diagnosis Age At Onset No Information Payers Payer name Insurance type Covered democrat ID Rosie loo(s) [facility] [id number] Social History Type Description Quantity Date Captured [...]
--- NOTE | ~2025-03-11 | XR_ITS ---
XR shoulder LT min 2V 03/11/2025 08:10 Indication: Left shoulder pain Procedure: 4 views left shoulder Comparison: 09/03/2024 Findings: No fracture, subluxation or dislocation. No significant soft tissue abnormality. Surrounding osseous structures are unremarkable. No foreign bodies. Impression: 1: No acute bone or joint abnormality. Reviewed, dictated and finalized at location O. Impression: 1: No acute bone or joint abnormality.
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
[2025-03-11 07:42] VITALS: BP 127/73; PULSE 63; RESP 20; TEMP 36.4; O2SAT 100
--- OUTSIDE RECORDS SUMMARY | 2025-03-11 07:55 | XMS_ITS | Clinical Summary ---
Author Organization [facility] Carmela Brewer Address [address] [place] [address] Care Team Providers Care Strip Roller Name Role Phone Wilberto George MD Primary Care Provider Medications lisinopriL (PRINIVIL) 5 mg tablet Take [...] Comments Blood Pressure 134/87 06/25/2021 3:22 PM LITIGATION CLAIM REPRESENTATIVE Pulse 92 06/25/2021 3:22 PM LITIGATION CLAIM REPRESENTATIVE Temperature 36.3 C (97.3 F) 06/25/2021 3:22 PM LITIGATION CLAIM REPRESENTATIVE Respiratory Rate - - Oxygen Saturation 97% 06/25/2021 3:22 PM LITIGATION CLAIM REPRESENTATIVE Inhaled Oxygen Concentration - - Weight 103 kg (227 lb) 06/25/2021 3:22 PM LITIGATION CLAIM REPRESENTATIVE Height 180.3 cm (5' 11) 06/25/2021 3:22 PM LITIGATION CLAIM REPRESENTATIVE Body Mass Index 31.66 06/25/2021 3:22 PM LITIGATION CLAIM REPRESENTATIVE Plan of Treatment Health Maintenance Due Date Last Done Comments DTAP/TDAP/TD VACCINES (1 - Tdap) 1993 HEPATITIS B VACCINES (1 of 3 - 19+ 3-dose series) 02/1993 HPV/Cotest (21-29) 1995 CERVICAL CANCER SCREENING 2004 HPV/Cotest (30-65) 2004 PAP SMEAR 2004 BREAST CANCER SCREENING 2014 COLORECTAL SCREENING 2019 Colorectal Cancer Screening 2019 FIT-DNA Q 3 years 2019 FIT/FOBT Q 1 year 2019 Flex Sig/CT Colonography Q 5 years 2019 ZOSTER VACCINE (1 of 2) 2024 INFLUENZA VACCINE (#1) 2025 05/25/[address] [place] [id number] BLUE [employer]UE PPO Care Teams Strip Roller Relationship Specialty Start Date End Date Wilberto George MD [address] [place] [address] PCP - General Internal Medicine 05/07/21
--- OUTSIDE RECORDS SUMMARY | 2025-03-11 07:55 | XMS_ITS | Patient Health Record ---
Author Organization [facility] Address [address] [place] [address] Reason For Referral No Information Immunizations Vaccine Route Administration Date Status Comme nts FLU VAC NO PRSV 4VAL 6 mo+ Unknown 04/25/2024 Administered Oly, RN, Adriana Alvarez 05/22/2024 12:46:14 PM SOFT SUGAR OPERATOR HEAD >Record of flulaval administration received from [facility] pharmacy, [place]. Plan Of Treatment Pending Test Test Name Order Date At Home SARS-CoV-2, MARY 03/22/2022 Insurance Providers Payer Name Payer Address Payer Phone Subscriber Number Group Number Insured Name Patient Relationship to Insured Coverage Start Date Coverage End Date [facility] [address] [place] [address] [id number] Mery Patel Self - patient is the insured
--- OUTSIDE RECORDS SUMMARY | 2025-03-11 07:55 | XMS_ITS | Clinical Summary ---
Author Organization [facility] Address [address] [place] [address] Care Team Providers Care Adjunct Business Instructor Name Role Phone Unavailable Primary Care Provider [...] 2014 COVID-19 Vaccine (2023-2 5 season) 2024 Pneumococcal Vaccine: 50+ Ye ars (1 of 1 - PCV) 2024 Zoster Vaccines (1 of 2) 2024 Meningococcal B Vaccine Aged Out No l onger eligible based on patient's age to complete this topic Meningococcal Vaccine Aged Out No francisco dodie eligible based on patient's age to complete this topic RSV Immunizations Under 20 Months Aged Out No longer eligible based on patient's age to complete this topic
--- OUTSIDE RECORDS SUMMARY | 2025-03-11 07:55 | XMS_ITS | Clinical Summary ---
Author Organization [facility] Address [address] [place] [address] Care Team Providers Care Public Works Director Name Role Phone Yousif Gaines MD, Cristian Unavailable [phone] Garcia Villanueva MD Unavailable [phone] Janine Viveros DO Primary Care Provider [phone] Allergies Active Allergy Reactions Criticality Noted Date [...] needed. Assessment & Plan (09/15/2021 3:49 PM PRODUCTION CONTROL MANAGER): Impression: Patient with recent unprovoked DVT of [...] recommendations of her primary care physician and log chain worker. Patient to follow up on as-needed basis. Abnormal radiographic examination 09/03/2021 Cellulitis 09/03/2021 Abdominal pain 09/03/2021 Epigastric pain 09/03/2021 Essential hypertension 09/03/2021 Assessment & Plan (10/02/2021 12:10 PM CDT): Impression: Chronic stable hypertension, controlled medications. Blood pressure stable this office visit. Plan: Medications reviewed, no changes made. Continue blood pressure management as per primary care provider. Assessment & Plan (09/15/2021 3:49 PM PRODUCTION CONTROL MANAGER): Impression: Stable chronic hypertension. Plan: Medications reviewed and recommend continuing daily antihypertensive regimen as directed by patient's primary care physician. Folliculitis 09/03/2021 Low back pain 09/03/2021 Malaise and fatigue 09/03/2021 Obesity 09/03/2021 Bronchitis 09/03/2021 Sinusitis 09/03/2021 Ventricular arrhythmia 09/03/2021 Vitamin D deficiency 09/03/2021 Acute deep vein thrombosis (DVT) of popliteal ve in 07/31/2021 Acute deep vein thrombosis (DVT) 05/22/2021 Blood clotting tendency 05/07/2021 Intermittent palpitations 08/03/2019 Shortness of breath [...] further evaluation. Plan: Will defer recommendations to exercise physiology professor. Immunizations Immunization Administration Dates Next Due Influenza, Quadrivalent, Split, [...] on file Legal Sex Female 7:41 PM PRODUCTION CONTROL MANAGER Gender Identity Not on file Sexual Orientation Not on file Obstetrics History Last Filed Vital Signs Vital Sign Reading Time Taken Comments Blood Pressure 130/85 01/11/2024 3:24 PM CDT Pulse 105 01/11/2024 3:24 PM CDT Temperature 36.7 C (98 F) 09/14/2021 8:52 AM PRODUCTION CONTROL MANAGER Respiratory Rate 18 09/14/2021 8:52 AM PRODUCTION CONTROL MANAGER Oxygen Saturation 100% 09/14/2021 8:52 AM PRODUCTION CONTROL MANAGER Inhaled Oxygen Concentration - - Weight 119.3 kg (263 lb) 01/11/2024 3:24 PM CDT Height 177.8 cm (5' 10) 01/11/2024 3:24 PM CDT Body Mass Index 37.74 01/11/2024 3:24 PM CDT Plan of Treatment Health Maintenance Due Date Last Done Comments Breast Cancer Screening-Mammogram 1974 Colon Cancer Screening-Colonoscopy 1974 Depression Screening 1974 Hepatitis C Screening 1974 DTaP/Tdap/Td Vaccine (1 - Tdap) 1985 Hepatitis B Screening 1992 Regular Well Visit/Exam 18-64 1992 Zoster Vaccine (1 of 2) 2024 Influenza Vaccine (#1) 2025 1, 04/28/2020 Pneumococcal vaccine <65 Aged Out No longer eligible based on patient's age to complete this topic Insurance [employer] [facility] Care Teams Public Works Director Relationship Specialty Start Date End Date Janine Viveros DO [address] [place] [address] [address] [place], [place] [id number] PCP - General Family Medicine 01/11/24 Cristian Dodd Jr., MD Medical Oncologist/Consumer Lender Medical Oncology 07/31/21 Garcia Villanueva MD [address] [facility] [address] [place] [address] Surgeon Surgery 09/02/21
[2025-03-11] MEDS: IBUPROFEN 400 MG TABLET PO (09:12)
[2025-03-11 09:28] VITALS: BP 120/70; PULSE 84; RESP 20; O2SAT 100
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
== END 2025-03-11 09:15 | disposition home or self-care (01) ==
PROVIDERS: Emergency Provider Emergency Medicine; PCP Nurse Practitioner
DX: S13.4XXA Sprain of ligaments of cervical spine, initial encounter (principal); S49.92XA Unspecified injury of left shoulder and upper arm, initial encounter; I10 Essential (primary) hypertension; L40.50 Arthropathic psoriasis, unspecified; K21.9 Gastro-esophageal reflux disease without esophagitis; Z86.711 Personal history of pulmonary embolism; Z86.718 Personal history of other venous thrombosis and embolism; Z87.891 Personal history of nicotine dependence; Z90.710 Acquired absence of both cervix and uterus; V49.40XA Driver injured in collision with unspecified motor vehicles in traffic accident, initial encounter
CPT/HCPCS: 70450; 72125; 73030; 99284; A9270

== ENCOUNTER 2025-05-20 10:42 | Outpatient (CLI) | payer BC, SELFPAY ==
--- NOTE | ~2025-05-20 | MR_ITS ---
EXAMINATION: MR shoulder LT wo/w con, MR humerus LT wo/w con DATE: 05/20/2025 12:39 INDICATION: Left shoulder and arm pain TECHNIQUE: 1. Magnetic resonance imaging (MRI) of the left shoulder was performed without and with 18 mL Multihance intravenous contrast. Sequences included axial T1- weighted FSE, axial T1-weighted FS FSE, coronal oblique PD-weighted FS FSE, coronal oblique T2-weighted FS FSE, sagittal T2-weighted FS FSE, sagittal PD- weighted FSE and postcontrast axial, sagittal and coronal T1-weighted FS FSE. 2. MRI of the left humerus was performed without and with the identical 18 mL MultiHance intravenous contrast bolus. Sequences included axial, sagittal and coronal T1-weighted FSE and fluid sensitive FSE STIR, axial T1-weighted FS FSE and postcontrast axial and coronal T1-weighted FS FSE. COMPARISON: None. FINDINGS: Right shoulder: Coracoacromial arch: The acromion undersurface is flat in morphology (type I). Small ossicle along the anterior margin of the acromion likely representing an unfused pre acromial os acromiale. Minimal acromioclavicular osteoarthritis. Rotator cuff: Mild supraspinatus tendinopathy with shallow fraying along the bursal side of the distal tendon without a measurable tear defect or evident retracted tear margin. The infraspinatus, teres minor and subscapularis tendons are normal. Normal rotator cuff muscle bulk and signal. Biceps tendon, glenoid labrum and glenohumeral cartilage: Long head of the biceps tendon is normal. Glenoid labrum is normal. Glenohumeral cartilage is normal. Fluid: Physiologic amount of fluid in the glenohumeral joint and biceps tendon sheath. No loose osteochondral bodies. Enhancing synovitis and small amount of fluid in the subacromial/subdeltoid bursa consistent with mild bursitis. Physiologic amount of fluid at the right elbow joint. Bones/other: Normal marrow signal with no edema, fracture or pathologic marrow replacing process. Right elbow joint spaces appear normal. Musculature throughout the right upper arm demonstrates normal bulk and signal. Neurovascular structures the right upper arm are unremarkable. No pathologically enlarged left axillary lymphadenopathy. No abnormally enhancing lesions identified. IMPRESSION: 1. Mild supraspinatus tendinopathy with shallow articular sided fraying at the distal tendon. 2. Mild subacromial/subdeltoid bursitis. Reviewed, dictated and finalized at location A. RANCE SALESPERSON IMPRESSION: 1. Mild supraspinatus tendinopathy with shallow articular sided fraying at the distal tendon. 2. Mild subacromial/subdeltoid bursitis.
== END 2025-05-20 10:43 | disposition home or self-care (01) ==
PROVIDERS: PCP Nurse Practitioner; Visit Provider Nurse Practitioner
DX: M25.512 Pain in left shoulder (principal); M79.602 Pain in left arm; M75.52 Bursitis of left shoulder
CPT/HCPCS: 73220; 73223; A9577